=== PATIENT | female | born 1945 | race Caucasian/White ===

== ENCOUNTER 2019-09-22 09:36 | Observation (INO) | payer MEDICARE, SELFPAY ==
[2019-09-22] VITALS (10 sets, daily range): BP systolic 147–218; BP diastolic 79–130; PULSE 91–111; RESP 16–34; TEMP 36.2–36.6; O2SAT 92–95; BMI 23.8
--- NOTE | ~2019-09-22 | XR_ITS ---
EXAMINATION: XR chest 2V DATE: 09/22/2019 10:13 INDICATION: Shortness of breath. TECHNIQUE: Frontal and lateral views of the chest were obtained. COMPARISON: Chest 2 views 08/01/2017, CT abdomen and pelvis 03/13/2011 FINDINGS: There is mild atelectasis in left lower lung zone. No pleural effusion or pneumothorax. Car diomegaly is noted. IMPRESSION: 1. Mild atelectasis in left lower lung zone. 2. Cardiomegaly. Reviewed, dictated and finalized at location A.
--- NOTE | ~2019-09-22 | US_ITS ---
EXAMINATION: US venous doppler [facility] DATE: 09/23/2019 10:47 INDICATION: Lower limb edema. TECHNIQUE: Grayscale ultrasound images without and with compression and Doppler ultrasound images of the bilateral lower extremity veins were obtained. COMPARISON: None. FINDINGS: The visualized portions of right common femoral vein, profunda (deep) femoral vein, femoral vein, pop liteal vein, peroneal veins, posterior tibial veins, and greater saphenous vein outflow are patent. The visualized portions of left common femoral vein, profunda femoral vein, femoral vein, popliteal v ein, and greater saphenous vein outflow are patent. There is thrombus in the left posterior tibial an d peroneal veins. IMPRESSION: 1. Deep vein thrombosis involving the left posterior tibial and peroneal veins. I called this result to Dr. Mckeon on 09/23/19 at 11:15 AM. Reviewed, dictated and finalized at location A. IMPRESSION: 1. Deep vein thrombosis involving the left posterior tibial and peroneal veins . I called this result to Dr. Mckeon on 09/23/19 at 11:15 AM.
--- NOTE | ~2019-09-22 | CT_ITS ---
EXAMINATION: CTA chest PE protocol DATE: 09/22/2019 11:53 INDICATION: Bilateral lower limb swelling and redness, history of bladder cancer TECHNIQUE: Computed tomography angiography (CTA) of the chest was performed with 100 mL Omnipaque-350 intravenous contrast timed to evaluate the pulmonary arteries. Coronal maximum intensity projection 3D-reconstructions were created by the technologist. The dose-length product (DLP) was 219.56 mGy-cm. Automated exposure control and iterative reconstruction technique were employed. COMPARISON: None. FINDINGS: The pulmonary arteries are well-opacified. Respiratory motion artifact diminishes sensitivi ty for pulmonary embolism however none is seen. The lungs are free of acute opacities. There is no pl eural effusion or pneumothorax. Cardiomegaly is noted. There is pectus excavatum. Mild emphysema is n oted. There is moderate thoracic spondylosis. IMPRESSION: 1. No pulmonary embolism or acute cardiopulmonary abnormality, sensitivity slightly limited by motion artifact. Reviewed, dictated and finalized at location B. IMPRESSION: 1. No pulmonary embolism or acute cardiopulmonary abnormality, sensitivity slig htly limited by motion artifact.
--- NOTE | 2019-09-22 09:58 | ECG_ITS ---
Measurements Intervals [place] Rate: 103 P: 52 W[place]: 140 QRS: 38 QRSD: 150 T: 36 QT: 390 QTc: 511 Interpretive Statements SINUS TACHYCARDIA RIGHT BUNDLE BRANCH BLOCK BASELINE ARTIFACT- I, II, AVR, AVL, AVF, V6 ABNORMAL ECG Electronically Signed On 09-22-2019 10:42:17 CDT by Nic Harris D.O.
--- NOTE | 2019-09-22 10:09 | ED.RECABL ---
HPI - Recheck/Abnormal Lab/Rx General Chief Complaint: Recheck/Abnormal Lab/Rx Stated Complaint: redness/swelling in legs and high bp Time Seen by Provider: 09/22/19 10:08 Source: patient Mode of arrival: ambulatory Limitations: no limitations History of Present Illness HPI narrative: Pt presents for evaluation of bilateral leg swelling and redness, as well as shortness of breath. Patient reportedly has had some leg swelling and redness over the past month. Patient also shortness of breath, denies cough or fever. She reports that she has not seen a primary care physician in over 4 years due to insurance issues. She has never been diagnosed with any medical conditions aside from bladder cancer which she was last treated for 6 years ago. Patient denies any chest pain. No pleuritic pain. No recent falls or injuries. Shortness of breath worsens with exertion. No recent travel or contacts outside of the house. Related Data Home Medications Medication Instructions Recorded Confirmed No Home Medications 09/22/19 09/22/19 Allergies Allergy/AdvReac Type Severity Reaction Status Date / Time No Known Allergies Allergy Unknown Verified 08/01/17 08:53 Review of Systems Review of Systems: Narrative: CONSTITUTIONAL: Denies fever, chills, or sweats. ENT: Denies rhinorrhea, congestion, sore throat, or otalgia. CARDIOVASCULAR: Denies chest pain, palpitations, or edema. RESPIRATORY: Denies productive cough, reports shortness of breath GASTROINTESTINAL: Denies abdominal pain, nausea, vomiting, or diarrhea. GENITOURINARY: Denies dysuria or hematuria. SKIN: Denies rash or itching. MUSCULOSKELETAL: Denies back pain, joint pain, or myalgia. NEUROLOGIC: Denies headache, numbness, or weakness. FORMERLY [facility], 1928–1983 Past Medical History Medical History (Updated 09/22/19 @ 12:19 by Elyse Vincent MD) Bladder cancer Surgical History Surgical History (Updated 09/22/19 @ 10:42 by Elyse Vincent MD) No pertinent past surgical history Social History Social History (Updated 09/22/19 @ 10:42 by Elyse Vincent MD) Smoking status: Current every day smoker Tobacco type: cigarettes Alcohol intake: never Substance use: never Living arrangements: alone Gender identity (if verbalized by the patient): Female Exam Narrative: Exam Narrative: GENERAL: Awake, alert, conversant HEAD: Normocephalic, atraumatic. EYES: PERRLA and EOMI. ENT: Nares clear, no rhinorrhea or epistaxis. Mucous membranes moist. NECK: Supple. CHEST: Tachypnea, mild use of accessory muscles to breathe, no wheezing, borderline hypoxemia HEART: Tachycardic, sinus rhythm ABDOMEN:Non distended, non tender EXTREMITIES: Normal range of motion. No pitting edema. No calf tenderness. SKIN: Warm, dry, mild erythema, seems to be more consistent the patient's complexion rather than acute infection NEURO:No focal deficits. Alert and oriented x3 Course Course Emergency Course: Patient presented to the emergency department for evaluation of shortness of breath, reported leg swelling. At the time of initial assessment, patient is mildly tachypneic, hypertensive. She denies any chest pain. She reports worsening shortness of breath with exertion. She is not in any severe respiratory distress. No wheezing. Laboratory results notable for elevation in BNP. Mild elevation in d-dimer. Patient has been very poorly compliant with health care, not seen a primary care physician in many years. CT obtained and no evidence of pneumonia. Patient continued to be very hypertensive with systolics above 200s, thus went ahead and placed nitroglycerin paste on the patient. I was concerned she may have hypertensive crisis causing acute CHF given elevated BP, BNP. The fact that she has no evidence of fluid overload is a bit puzzling at this point. No pneumonia. No PE. I do not feel the patient is anxious. Regardless, pt required hydralazine and nitro paste for BP control. Patient will be admitted
--- NOTE | 2019-09-22 10:10 | PC.NURSE ---
Patient to xray at this time
[2019-09-22 10:15] LABS: Basophils Percent Auto 0.6 % (0.2-1.2); Eosinophils Absolute Auto 0.2 K/mm3 (0-0.3); Eosinophils Percent Auto 2.8 % (0-4.4); Hematocrit 56.1 % (37.0-47.0); Hemoglobin 18.1 g/dL (12.0-15.0); Immature Granulocyte Absolute 0.02 K/mm3 (0.00-0.031); Immature Granulocyte Percent A 0.3 % (0-0.5); Lymphocytes Absolute Auto 1.41 K/mm3 (0.9-3.2); Lymphocytes Percent Auto 22.1 % (18.3-44.2); Mean Corpuscular HGB Conc 32.3 g/dl (32-36); Mean Corpuscular Hemoglobin 30.1 pg (26-34); Mean Corpuscular Volume 93.2 fl (80-100); Mean Platelet Volume 9.9 fl (7.4-10.4); Monocytes Absolute Auto 0.4 K/mm3 (0.1-0.6); Monocytes Percent Auto 6.7 % (2.6-8.5); Neutrophils Absolute Auto 4.3 K/mm3 (1.3-6.7); Neutrophils Percent Auto 67.5 % (45.5-73.1); Platelet Count Result 162 k/mm3 (150-375); Red Blood Count 6.02 M/mm3 (4.2-5.4); Red Cell Distribution Width 13.2 % (11.5-14.5); White Blood Count 6.4 K/mm3 (4.5-10.0)
[2019-09-22 10:28] LABS: Blood Urea Nitrogen 12 mg/dL (7-17); Calcium 9.7 mg/dL (8.4-10.2); Carbon Dioxide 30 mmol/L (22-30); Chloride 105 mmol/L (98-107); Estimated CRCL calculation 51 ml/min; Estimated Glomerular Filt Rate > 60; Glucose 114 mg/dL (65-105); INR 0.9; Partial Thromboplastin Time 31.2 SECONDS (22.3-36.8); Potassium 4.3 mmol/L (3.4-5.0); Prothrombin Time 12.2 Seconds (11.1-14.7); Sodium 142 mmol/L (137-145)
[2019-09-22 10:40] LABS: NT Pro B Type Natriuretic Pept 1480 PG/ML (5-100); Troponin I 0.015 ng/mL (0.000-0.034)
[2019-09-22 11:02] LABS: D Dimer 0.52 ug/mL (<0.48)
[2019-09-22] MEDS: NITROGLYCERIN OINTMENT 1 INCH DOSE TRANSDERM (11:05)
[2019-09-22] MEDS: FUROSEMIDE INJ 40 MG/4 ML VIAL 20 MG IV PUSH (11:06)
--- NOTE | 2019-09-22 11:42 | PC.NURSE ---
Patient in CT at this time
[2019-09-22] MEDS: hydrALAZINE HCL 20 MG/ML VIAL 10 MG IV PUSH (13:14)
--- NOTE | 2019-09-22 13:50 | ADMGEN ---
This patient, Felipa Adams, was admitted to Medical Room 340-01. Patient/family oriented to hospital policies and general routines including ID bracelet, bed and alarms, visiting hours, pain management, procedures, bathroom and other care routines, personal items, smoking policy, room service/diet, and visiting hours. Valuables list has been completed. Information on how to activate the Rapid Response Team has been discussed. Patient/Family are encouraged to report perceived risks to care and to ask questions if they do not understand what they are told or what they should do.
[2019-09-22] MEDS: ACETAMINOPHEN 325 MG TABLET 650 MG PO (15:25)
[2019-09-22 16:32] LABS: Troponin I 0.019 ng/mL (0.000-0.034)
--- NOTE | 2019-09-22 22:05 | PM.IMHP ---
H&P: HPI History of Present Illness Chief complaint: hypertensive emergency,dyspnea Narrative: Felipa Adams is a 73 year old female The patient stated that she has not had any history of congestive heart failure. The patient is on Medicare and cannot find a primary care doctor at this time that will take her insurance. Patient stated that she started to have some leg swelling for over [place] months now and the shortness of breath was way over a month. Patient denies being short of breath with exertion and she denies orthopnea. Her major concern was that of the edema to her lower extremities. the patient stated that she had high blood pressure who many years ago and was treated when she had a primary care doctor but has not been taking any blood pressure medicine. She still continues to smoke. The patient had a CTA which showed no pulmonary embolism or acute cardiopulmonary abnormalities. Chest x-ray was read as cardiomegaly. The patient was given IV Lasix in the emergency room hydralazine and Nitrol ointment. Date of service is 09/22/2019 Review of Systems Review of Systems: All systems reviewed & are unremarkable except as noted in HPI and below Constitutional: Constitutional: Reports as per HPI and Reports no additional constitutional complaints Eyes: Eyes: Reports as per HPI and Reports no additional eye complaints ENT: Reports system reviewed and no additional complaints, except as documented and Reports Normal hearing present Cardiovascular: Cardiovascular: Reports no additional cardiovascular complaints Respiratory: Respiratory: Reports no additional respiratory complaints and Reports no additional respiratory complaints Gastrointestinal: Gastrointestinal: Reports as per HPI and Reports no additional gastrointestinal complaints Musculoskeletal: Musculoskeletal: Reports no additional musculoskeletal complaints Integumentary/Breasts: Skin/Breast: Reports system reviewed and no additional complaints, except as docu and Reports as per HPI Neurologic: Reports system reviewed and no additional complaints, except as documented, Reports as per HPI and Reports Normal hearing present Psychiatric: Psychiatric: Reports no additional psychiatric complaints and Reports as per HPI Endocrine: Endocrine: Reports no additional endocrine complaints Hematologic/Lymphatic: Hematologic/Lymphatic: Reports no additional hematologic/lymphatic complaints Allergic/Immunologic: Allergic/Immunologic: Reports no additional allergic/immunologic complaints [facility] Past Medical History Medical History (Updated 09/22/19 @ 22:23 by Lillie White NP) Bladder cancer remove per cystoscopy without any chemo or radiation. HTN (hypertension) with goal to be determined Surgical History Surgical History (Updated 09/22/19 @ 22:13 by Lillie White NP) History of tonsillectomy and adenoidectomy No pertinent past surgical history Family History Family History (Updated 09/22/19 @ 22:15 by Lillie White NP) Mother Sepsis Father Lung cancer Sibling Leukemia Other Unknown family medical history Social History Social History (Updated 09/22/19 @ 22:16 by Lillie White NP) Social History: the patient is . She is a full code. 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 She does not have a primary care doctor and will need a list. She has 2 children. Patient smokes a pack a cigarettes in about 3 days. She did have a #waywire for many years and is retired. She lives home alone. Smoking packs per day: 1 Smoking cigarettes per day: 20.0 Years smoked: 45 Smoking pack-years: 45.00 Smoking status: Current every day smoker Tobacco type: cigarettes Alcohol intake: never Substance use: never Living arrangements: alone Occupation/Education: retired Gender identity (if verbalized by the patient): Female Spiritual care concerns: No Agree to blood products: Yes Meds Home Medications and A
[2019-09-22] MEDS: MELATONIN 3 MG TABLET PO (22:24)
[2019-09-23] VITALS (9 sets, daily range): BP systolic 137–153; BP diastolic 77–93; PULSE 81–106; RESP 16–18; TEMP 36.2–36.7; O2SAT 92
--- NOTE | 2019-09-23 | ECHO_ITS ---
Patient Info Name: Felipa Adams Age: 73 years : 1945 Gender: Female Ht: 66 in Wt: 147 lbs BSA: 1.77 m2 HR: 82 bpm BP: 145 / 77 mmHg Heart Rhythm: Sinus Rhythm Technical Quality: Good Exam Date: 09/23/2019 7:09 AM Exam Location: [facility] Pulmonary Exam Room: 340 Patient Status: Inpatient Admit Date: 09/22/2019 Staff Ordering Physician: Lillie White NP Patch Machine Operator: Chantal Gonzalez RDCS Attending Provider: Starr Benson MD Referring Physician: Cindy KWAN; Exam Type: CA echo doppler color flow Study Info Indications - edema sob Complete two-dimensional, color flow and Doppler transthoracic echocardiogram is performed. Summary 1. Normal left ventricular size with moderate concentric hypertrophy. Moderately severe global left ventricular dysfunction is present with no focal wall motion abnormalities. Visual estimate of ejection fraction is 30-35%. Diastolic dysfunction, grade 2, is present. 2. Left atrial chamber dimension is mildly enlarged. 3. No significant valvular heart disease. 4. Normal estimated pulmonary pressure. 5. Normal sinus rhythm. Left Ventricle Left ventricular chamber dimension is normal. Left ventricular systolic function is severely reduced, estimated at 30-35%. There is moderately increased left ventricular wall thickness. Left ventricular septal wall motion is normal. The left ventricular diastolic function is grade II diastolic dysfunction. Right Ventricle Right ventricular chamber dimension is normal. Right ventricular systolic function is normal. Left Atria Left atrial chamber dimension is mildly enlarged. Right Atria Right atrial chamber dimension is normal. Aortic Valve The aortic valve is trileaflet. There is no aortic valve sclerosis. There is no aortic valve stenosis. There is no aortic valve regurgitation. Pulmonic Valve The pulmonic valve is normal. There is no pulmonic valve stenosis. There is no pulmonic regurgitation. Mitral Valve The mitral valve has thickened leaflets. There is no mitral valve stenosis. There is trace mitral valve regurgitation. Tricuspid Valve The tricuspid valve leaflets are normal. There is no significant tricuspid valve stenosis. There is trace tricuspid valve regurgitation. No pulmonary hypertension, estimated pulmonary arterial systolic pressure is 29 mmHg. Pericardium/Pleural The pericardium appears normal. There is no pericardial effusion. Inferior Vena Cava Normal inferior vena cava with >50% collapse upon inspiration consistent with Empty right atrial pressure, 10 mmHg. Aorta The aortic root size at the sinus of Valsalva is normal. The prox ascending aorta size is normal. Left Ventricular Outflow Tract Name Value Normal LVOT 2D LVOT Diameter 2.0 cm LVOT Doppler LVOT Peak Gradient 4 mmHg LVOT Mean Gradient 2 mmHg LVOT VTI 20 cm LVOT VTI/AV VTI Ratio 0.5 LVOT Stroke Volume 62 ml LVOT CO
[2019-09-23] MEDS: ACETAMINOPHEN 325 MG TABLET 650 MG PO (00:23)
[2019-09-23] MEDS: carvediloL 3.125 MG TABLET PO ×2 (01:12→08:03)
[2019-09-23 06:42] LABS: Basophils Percent Auto 0.4 % (0.2-1.2); Eosinophils Absolute Auto 0.2 K/mm3 (0-0.3); Eosinophils Percent Auto 2.3 % (0-4.4); Hematocrit 50.2 % (37.0-47.0); Hemoglobin 16.5 g/dL (12.0-15.0); Immature Granulocyte Absolute 0.03 K/mm3 (0.00-0.031); Immature Granulocyte Percent A 0.3 % (0-0.5); Lymphocytes Absolute Auto 1.18 K/mm3 (0.9-3.2); Lymphocytes Percent Auto 12.2 % (18.3-44.2); Mean Corpuscular HGB Conc 32.9 g/dl (32-36); Mean Corpuscular Hemoglobin 29.6 pg (26-34); Mean Corpuscular Volume 90.1 fl (80-100); Mean Platelet Volume 9.7 fl (7.4-10.4); Monocytes Absolute Auto 0.9 K/mm3 (0.1-0.6); Monocytes Percent Auto 8.8 % (2.6-8.5); Neutrophils Absolute Auto 7.4 K/mm3 (1.3-6.7); Platelet Count Result 167 k/mm3 (150-375); Red Blood Count 5.57 M/mm3 (4.2-5.4); Red Cell Distribution Width 12.8 % (11.5-14.5); White Blood Count 9.7 K/mm3 (4.5-10.0)
[2019-09-23 06:57] LABS: Alanine Aminotransferase 15 U/L (4-35); Albumin Level 4.1 g/dL (3.5-5.1); Alkaline Phosphatase 75 U/L (38-126); Aspartate Amino Transferase 21 U/L (14-36); Bilirubin,Total 1.1 mg/dL (0.2-1.3); Blood Urea Nitrogen 15 mg/dL (7-17); Calcium 9.1 mg/dL (8.4-10.2); Carbon Dioxide 31 mmol/L (22-30); Chloride 101 mmol/L (98-107); Estimated CRCL calculation 51 ml/min; Estimated Glomerular Filt Rate > 60; Glucose 117 mg/dL (65-105); Potassium 3.7 mmol/L (3.4-5.0); Sodium 138 mmol/L (137-145)
[2019-09-23] MEDS: FUROSEMIDE INJ 40 MG/4 ML VIAL 20 MG IV PUSH (08:03)
[2019-09-23] MEDS: ENOXAPARIN 80 MG/0.8 ML SYRINGE 65 MG SUB-Q (12:12)
--- NOTE | 2019-09-23 13:33 | WPDCN ---
Assessment and Plan Assessment and plan (1) Cardiomyopathy: Code(s): I42.9 - Cardiomyopathy, unspecified Status: Acute Assessment and Plan: Patient presents with mild CHF, new cardiomyopathy EF 30-35% with LVH (probably a hypertensive cardiomyopathy), and chronic hypertension which has not been treated. Doing much better now, up and ambulating in the halls, off O2.. She is on minimal therapy at this moment with reasonable BP for discharge.. Seems okay for discharge. Will add lisinopril 10 mg daily, continue carvedilol 3.125 mg BID and Lasix 20 mg qd. Reviewed low-salt diet REviewed my hope that her heart would recover if she has good BP control. Reviewed when to call for problems. Recommend office follow-up as well as a primary care physician. (2) Hypertensive crisis: Code(s): I16.9 - Hypertensive crisis, unspecified Status: Acute Assessment and Plan: Severely elevated BP on admission. (3) Hypertensive heart disease with systolic congestive heart failure: Code(s): I11.0 - Hypertensive heart disease with heart failure; I50.20 - Unspecified systolic (congestive) heart failure Status: Acute Assessment and Plan: LVH, CHF. (4) COPD (chronic obstructive pulmonary disease): Code(s): J44.9 - Chronic obstructive pulmonary disease, unspecified Status: Acute Assessment and Plan: CT showed COPD and H&H high suggesting COPD. Tobacco use. Encouraged cessation. (5) DVT (deep venous thrombosis): Code(s): I82.409 - Acute embolism and thrombosis of unspecified deep veins of unspecified lower extremity Status: Acute Assessment and Plan: Anticoagulation per hospitalist. HPI Data of Consult Date/Time: 09/23/19 13:33 Requesting Physician: Starr Mckeon MD Primary Care Provider: UNKNOWN,DOCTOR Consult Narrative Narrative: DATE OF SERVICE: 09/23/2019 Felipa Adams is a 73 year old female whom I was asked to see at the request of Dr. Mckeon for my advice and opinion regarding her cardiomyopathy in consultation. The patient has had some swelling as well as REED for the last few months. However she was able to do house work without too much difficulty. Her daughter was concerned about her edema and brought her to the emergency room yesterday. Her blood pressure was 218/130mmHg at 1 point. She has been given IV diuretic, nitropaste, in started on carvedilol. Lower extremity Doppler showed a infrapopliteal DVT. The patient reports no chest pain or pressure, PND orthopnea, palpitations, history of stroke. She does have a history of hypertension treated in the past, but with her current unsure and she could not find a nearby primary care doctor and has not had her blood pressure treated. She denies any hyperlipidemia or diabetes. She does smoke and wonders if she might have some COPD. Review of Systems Constitutional: Constitutional: Denies difficulty sleeping Eyes: Eyes: Denies blurry vision ENT: Denies epistaxis Cardiovascular: Cardiovascular: Denies chest pain, Reports pedal edema, Reports leg edema, Denies lightheadedness and Denies palpitations Comments: no claudication Respiratory: Respiratory: Denies chest congestion, Denies cough, Reports dyspnea and Reports dyspnea on exertion Gastrointestinal: Gastrointestinal: Denies abdominal pain and Denies hematemesis Genitourinary: Genitourinary: Denies hematuria Musculoskeletal: Musculoskeletal: Denies back pain Integumentary/Breasts: Skin/Breast: Denies rash Psychiatric: Psychiatric: Denies anxiety and Denies depression [facility] Past Medical History Medical History (Updated 09/23/19 @ 14:20 by Samantha Mckeon MD) Bladder cancer removed per cystoscopy without any chemo or radiation, Dr. Valencia
[2019-09-23] MEDS: lisinopriL 10 MG TABLET PO (14:53)
--- NOTE | 2019-09-23 15:17 | PM.IMPN ---
Progress Note: A&P Assessment and Plan (1) Hypertensive crisis: Code(s): I16.9 - Hypertensive crisis, unspecified Status: Acute Assessment and Plan: Significant blood pressure elevation on presentation with systolic blood pressure in the 200s. Nitroglycerin paste placed in the emergency room then removed. Patient started on Coreg yesterday. Cardiology consulted due to echocardiogram results as noted below. Lisinopril started. Also on diuretic. Blood pressure reviewed on 09/23/2019 and now much improved in acceptable range. Will discharge home today. (2) Cardiomyopathy: Qualifiers: Cardiomyopathy type: unspecified Qualified Code(s): I42.9 - Cardiomyopathy, unspecified Code(s): I42.9 - Cardiomyopathy, unspecified Status: Acute Assessment and Plan: Echocardiogram with EF 30-35% and diastolic dysfunction grade 2. Cardiology consulted and appreciate input. Continue Coreg. Placed on IV Lasix on admission but will transition to oral Lasix. Lisinopril added. Will follow-up with cardiology as an outpatient. Telemetry reviewed on 09/23/2019 with sinus rhythm. (3) Hypertensive heart disease with systolic congestive heart failure: Qualifiers: Heart failure chronicity: acute Qualified Code(s): I11.0 - Hypertensive heart disease with heart failure; I50.21 - Acute systolic (congestive) heart failure Code(s): I11.0 - Hypertensive heart disease with heart failure; I50.20 - Unspecified systolic (congestive) heart failure Status: Acute Assessment and Plan: Shortness of breath on presentation due to cardiomyopathy. CTA chest was negative for pulmonary embolism. Echocardiogram results as noted above. Will continue Coreg, lisinopril and Lasix at home. (4) DVT (deep venous thrombosis): Qualifiers: DVT location: lower extremity Affected thrombotic vein of extremity: tibial Chronicity: acute Laterality: left Qualified Code(s): I82.442 - Acute embolism and thrombosis of left tibial vein Code(s): I82.409 - Acute embolism and thrombosis of unspecified deep veins of unspecified lower extremity Status: Acute Assessment and Plan: Venous Dopplers of the lower extremities ordered due to edema in lower extremities. Left lower extremity with DVT of the left posterior tibial and peroneal veins. Patient was given 1 dose Lovenox subcu while here. Will transition to oral Eliquis on discharge. Subjective Date/time seen: 09/23/19 15:17 Interval history: Date of Service: 09/23/2019. Admitted with hypertensive, dyspnea and peripheral edema. Found to have left lower extremity DVT and cardiomyopathy. Patient is feeling much better now. Has been for several walks without shortness of breath. No cough. No chest pain. No abdominal pain. Does still have some swelling in left lower extremity but no pain. Review of Systems Review of Systems: Narrative: Feeling better. Wants to go home. Constitutional: Constitutional: Denies chills and Denies fever(s) ENT: Denies nasal congestion and Denies nasal discharge Cardiovascular: Cardiovascular: Denies chest pain and Reports leg edema Respiratory: Respiratory: Denies cough, Denies dyspnea and Denies dyspnea on exertion Gastrointestinal: Gastrointestinal: Denies abdominal pain, Denies nausea and Denies vomiting Genitourinary: Genitourinary: Reports no additional female genitourinary complaints Musculoskeletal: Musculoskeletal: Reports no additional musculoskeletal complaints Integumentary/Breasts: Skin/Breast: Denies rash Neurologic: Denies headache(s) Psychiatric: Psychiatric: Denies anxiety and Denies confusion Exam Narrative: Exam Narrative: Awake and alert. Const: General: no acute distress HENMT: Mouth: Yes moist mucous membranes Neck: Neck: supple Lymphatic: lymphadenopathy not noted Resp: Auscultation: no rales, no wheezes and diminished lung sounds Cardio: Rate: re
--- NOTE | 2019-09-23 18:22 | PM.DS ---
DS: Diagnosis Admitting Diagnosis Admitting Diagnosis: Hypertensive crisis, unspecified Discharge Diagnosis (1) Hypertensive crisis: Code(s): I16.9 - Hypertensive crisis, unspecified Status: Acute (2) Cardiomyopathy: Qualifiers: Cardiomyopathy type: unspecified Qualified Code(s): I42.9 - Cardiomyopathy, unspecified Code(s): I42.9 - Cardiomyopathy, unspecified Status: Acute (3) Hypertensive heart disease with systolic congestive heart failure: Qualifiers: Heart failure chronicity: acute Qualified Code(s): I11.0 - Hypertensive heart disease with heart failure; I50.21 - Acute systolic (congestive) heart failure Code(s): I11.0 - Hypertensive heart disease with heart failure; I50.20 - Unspecified systolic (congestive) heart failure Status: Acute DS: Summary Hospital Course Reason for hospitalization: Shortness of breath. Hospital Course: Date of Service of Discharge: September 23, 2019. History of Present Illness: Patient is pleasant 73-year-old woman currently without a primary care physician presented to the emergency room with shortness of breath for the past month. She has also had leg swelling for several months. No orthopnea. No fever chills. No cough. She does have a history of taking antihypertensives but has not taken recently due to lack of primary physician. With continuing symptoms, patient presented to emergency room. Systolic blood pressure was noted to be significantly elevated greater than 200. She was given nitroglycerin paste and hydralazine as result. Evaluation was consistent with congestive heart failure with patient given IV Lasix. CT of the chest was done showing no pulmonary embolism. With her findings, she was placed in observation for further evaluation and treatment. Course in Hospital: Patient was admitted to the medical floor with telemetry. As noted, she was given IV Lasix which was continued. Patient had good diuresis with the IV Lasix. She was started on oral Coreg with concern for possible congestive heart failure. These measures did help decrease her blood pressure although remained mildly elevated. Patient remained in sinus rhythm on telemetry. She did remain on room air throughout her stay. An echocardiogram was done revealing EF of 30-35% and diastolic dysfunction grade 2. Cardiology was consulted and patient was seen by Dr. Mckeno. Lisinopril was added to Coreg with recommendation to convert to oral Lasix. Patient was felt stable for discharge given her status. Venous Dopplers were done of the lower extremities with DVT found in the left posterior tibial and peroneal veins. Patient was given a dose of therapeutic Lovenox in the hospital with plan to transition to oral Eliquis as an outpatient. Patient was aware she would need at least 3-6 months treatment and will need to establish with primary care physician for further evaluation and treatment. With the patient stable, she was able to discharge home on the afternoon of September 23, 2019. Status at Discharge Cognitive/behavioral status at discharge: Stable. Functional status at discharge: independent ambulation Overall status at discharge: patient is back to baseline Time Spent with Patient Time attestation: Total time spent providing and/or coordinating discharge services: 40 minutes. Time spent: Greater than 30 minutes Exam Narrative: Exam Narrative: Vital Signs Temp Pulse Resp BP Pulse Ox 97.3 F L 111 H 20 200/114 H 95 09/22/19 09:40 09/22/19 09:40 09/22/19 09:40 09/22/19 09:40 09/22/19 09:40 Temp Pulse Resp BP Pulse Ox 98.1 F 98 18 137/93 H 92 09/23/19 14:00 09/23/19 14:00 09/23/19 14:00
== END 2019-09-23 16:25 | disposition home or self-care (01) ==
LOC: ANHED 13:32 → ANH3MED 13:34
PROVIDERS: Nurse Practitioner; Admitting Provider Hospitalist; Emergency Provider Emergency Medicine; Visit Provider Hospitalist
DX: I16.9 Hypertensive crisis, unspecified (principal); I11.0 Hypertensive heart disease with heart failure; I50.21 Acute systolic (congestive) heart failure; I42.9 Cardiomyopathy, unspecified; I82.442 Acute embolism and thrombosis of left tibial vein; I82.452 Acute embolism and thrombosis of left peroneal vein; F17.210 Nicotine dependence, cigarettes, uncomplicated; Z85.51 Personal history of malignant neoplasm of bladder
CPT/HCPCS: 36415; 71046; 71275; 80048; 80053; 83735; 83880; 84443; 84484; 85025; 85380; 85610; 85730; 93005; 93306; 93970; 96372; 96374; 96375; 96376; 99285; A9270; G0378; J0360; J1650; J1940; Q9967

== ENCOUNTER 2019-10-02 10:31 | Outpatient (CLI) | payer MEDICARE, SELFPAY ==
[2019-10-02 11:13] LABS: Blood Urea Nitrogen 15 mg/dL (7-17); Calcium 9.6 mg/dL (8.4-10.2); Carbon Dioxide 31 mmol/L (22-30); Chloride 105 mmol/L (98-107); Estimated Glomerular Filt Rate > 60; Glucose 112 mg/dL (65-105); Potassium 4.5 mmol/L (3.4-5.0); Sodium 139 mmol/L (137-145)
== END 2019-10-02 10:32 | disposition home or self-care (01) ==
PROVIDERS: Visit Provider Hospitalist
DX: I11.0 Hypertensive heart disease with heart failure (principal); I50.20 Unspecified systolic (congestive) heart failure
CPT/HCPCS: 36415; 80048

== ENCOUNTER 2020-07-17 18:33 | Emergency (ER) | payer MEDICARE, SELFPAY ==
--- NOTE | ~2020-07-17 | XR_ITS ---
XR elbow LT min 3V 07/17/2020 20:24 INDICATION: Left elbow pain PROCEDURE: 5 views left elbow COMPARISON: No prior studies for comparison FINDINGS: Fracture, dislocation or subluxation is not identified. No significant joint effusion. Oste openia. There are small loose bodies adjacent to the joint space. The soft tissues appear within norm al limits. No foreign bodies are identified. IMPRESSION: 1: NO ACUTE BONE OR JOINT ABNORMALITY IDENTIFIED. Reviewed, dictated and finalized at location A. RUMENT TECHNICIAN APPRENTICE
--- NOTE | ~2020-07-17 | XR_ITS ---
XR wrist LT min 3V 07/17/2020 19:20 Indication: Left wrist deformity after fall Procedure: 4 views left wrist Comparison: No prior studies for comparison. Findings: There is a transverse distal metaphyseal fracture of the radius with approximately one thir d bone width dorsal displacement. Mild dorsal angulation. No intra-articular extension. There is a no ndisplaced distal ulnar fracture as well. Moderate diffuse soft tissue swelling. Osteopenia. Impression: 1: Mildly extra-articular displaced transverse distal radial metaphyseal fracture with approximately one third bone width dorsal displacement and mild dorsal angulation. 2: Nondisplaced distal ulnar fracture. Reviewed, dictated and finalized at location A. EMENT SECRETARY Impression: 1: Mildly extra-articular displaced transverse distal radial metaphyseal fractu re with approximately one third bone width dorsal displacement and mild dorsal angulation. 2: Nondisplaced distal ulnar fracture.
--- NOTE | ~2020-07-17 | XR_ITS ---
XR wrist LT 2V 07/17/2020 21:21 Indication: Post reduction left wrist fracture Procedure: 2 views left wrist performed in fiberglass cast Comparison: 07/17/2020 Findings: No significant change to alignment of distal radial and ulnar fractures at the metaphysis. There is mild dorsal displacement and angulation of the radial fracture. No other gross fracture or m alalignment. Osteopenia. Impression: 1: Stable alignment of distal radial and ulnar fractures post reduction allowing for differences of marco antonio chappell. Reviewed, dictated and finalized at location A. OR PRINCIPAL ARCHITECT Impression: 1: Stable alignment of distal radial and ulnar fractures post reduction allowin g for differences of technique.
[2020-07-17 18:53] VITALS: BP 155/61; PULSE 63; RESP 16; TEMP 36.6; O2SAT 98
--- NOTE | 2020-07-17 20:09 | ED.UPPEXIN ---
HPI - Extremity Injury (Upper) General Chief Complaint: Extremity Injury, Upper Stated Complaint: L wrist injury Time Seen by Provider: 07/17/20 19:36 Source: patient Mode of arrival: ambulatory Limitations: no limitations History of Present Illness HPI narrative: This is a 74 year old female that presents to the ER for left wrist injury sustained just prior to arrival. Reports she slipped after she had gotten out of the shower. Reports catching herself with her left wrist. Also reports an injury to the left elbow. Denies hitting her head, loss of consciousness, other injuries, weakness, or numbness. Related Data Allergies Allergy/AdvReac Type Severity Reaction Status Date / Time No Known Allergies Allergy Unknown Verified 08/01/17 08:53 Review of Systems Review of Systems: Narrative: CONSTITUTIONAL: Denies fever MUSCULOSKELETAL: Reports joint pain, and myalgia. NEUROLOGIC: Denies numbness, or weakness. All systems reviewed & are unremarkable except as noted in HPI and below PMFSH Past Medical History Medical History (Updated 07/17/20 @ 21:59 by Dorina Magallanes PA-C) Bladder cancer removed per cystoscopy without any chemo or radiation, Dr. Ovalle, approximately 2012. Cardiomyopathy HTN (hypertension) with goal to be determined Surgical History Surgical History (Updated 09/22/19 @ 22:13 by Lillie White NP) History of tonsillectomy and adenoidectomy No pertinent past surgical history Family History Family History (Updated 09/23/19 @ 14:14 by Samantha Mckeon MD) Mother Sepsis Father Lung cancer Black lung disease Sibling Leukemia Other Unknown family medical history Social History Social History (Updated 09/23/19 @ 14:15 by Samantha Mckeon MD) Social History: the patient is since 2018. She is a full code. 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 She does not have a primary care doctor and will need a list. She has 2 daughters, 1 of whom lives with her. Patient smokes a pack a cigarettes in about 3 days. She did have a [employer] for many years and is retired. Smoking packs per day: 1 Smoking cigarettes per day: 20.0 Years smoked: 45 Smoking pack-years: 45.00 Smoking status: Current every day smoker Tobacco type: cigarettes Alcohol intake: never Substance use: never Gender identity (if verbalized by the patient): Female Spiritual care concerns: No Agree to blood products: Yes Exam Narrative: Exam Narrative: GENERAL: Elderly, well-nourished, and in no acute distress. HEAD: Normocephalic, atraumatic. EYES: PERRLA and EOMI. ENT: Nares clear, no rhinorrhea or epistaxis. Mucous membranes moist. Oropharynx without tonsillar hypertrophy exudate or other lesions. Bilateral TMs pearly flores non-bulging NECK: Supple. No adenopathy or masses. No midline spinal tenderness CHEST: Clear to auscultation. No respiratory distress. No wheezes rales or rhonchi HEART: Regular rate and rhythm. No murmur heard. Normal peripheral pulses. EXTREMITIES: Normal range of motion, except decreased range of motion in the left wrist. Edema with obvious deformity to the left wrist. Normal radial pulses. Normal sensation SKIN: Warm, dry, no rash. NEURO: No focal deficits. Alert and oriented x3. Cranial nerves II through XII grossly intact PSYCH: Normal mood and affect Course Vital Signs Vital signs: Vital Signs Temperature 97.8 F 07/17/20 18:53 Pulse Rate 63 07/17/20 18:53 Respiratory Rate 16 07/17/20 18:53 Blood Pressure 155/61 H 07/17/20 18:53 Pulse Oximetry 98 07/17/20 18:53 Temperature 97.8 F 07/17/20 18:53 Pulse Rate 63 07/17/20 18:53 Respiratory Rate 16 07/17/20 18:53 Blood Pressure 155/61 H 07/17/20 18:53 Pulse Oximetry 98 07/17/20 18:53 Procedures Orthopedic Fracture Reduction Fracture #1: Fracture Reduction date: 07/17/20 Side: left Fracture Reduction Location: radius Analgesia: hem
--- NOTE | 2020-07-17 20:10 | PC.NURSE ---
patient brought back to ED room 3 with c/o left wrist pain and deformity after ground level fall tonight after slipping on a wet floor in her bathroom. see initial notes. alert. oriented. sitting in chair in ED room 3. ice on left wrist. patient assisted to sit on stretcher. wants to remain sitting up. aware that xray is pending.
[2020-07-17] MEDS: LIDOCAINE HCL 1% LOCAL INJ 20 ML VIAL INFILTRATE (20:13)
[2020-07-17] MEDS: HYDROcodone/acetaminophen (*CRX) 5-325 MG TABLET 1 TAB PO (20:13)
--- NOTE | 2020-07-17 20:20 | PC.NURSE ---
provider to bedside. patient needs closed reduction and then fu with orthopedic surgery. patient does not want to be sedated in ED. will give PO pain meds, start IV and do nerve block. can give IV meds prior to OCL placement. patient aware and agreeable. sitting on stretcher. norco given. xray here now.
--- NOTE | 2020-07-17 20:40 | PC.NURSE ---
patient spoke with her children. update given. SL inserted. waiting for MD.
[2020-07-17] MEDS: fentaNYL CITRATE INJ (*CRX) 100 MCG/2 ML VIAL 50 MCG IV PUSH (21:10)
--- NOTE | 2020-07-17 21:30 | PC.NURSE ---
provider at bedside. fentanyl IVP given for pain. patient's hand in hand trap. OCL being applied.
== END 2020-07-17 22:10 | disposition home or self-care (01) ==
PROVIDERS: Emergency Provider Emergency Medicine
DX: S52.502A Unspecified fracture of the lower end of left radius, initial encounter for closed fracture (principal); W01.0XXA Fall on same level from slipping, tripping and stumbling without subsequent striking against object, initial encounter; I10 Essential (primary) hypertension
CPT/HCPCS: 29125; 73080; 73100; 73110; 96374; 99284; A9270; J3010

== ENCOUNTER → 2020-07-19 03:09 | Outpatient (CLI) | payer MEDICARE, SELFPAY ==
[2020-07-19 18:10] LABS: SARS-CoV-2 RNA PCR Negative
== END ==
PROVIDERS: Visit Provider Orthopaedic Surgery
DX: Z01.812 Encounter for preprocedural laboratory examination (principal); Z20.822 Contact with and (suspected) exposure to COVID-19
CPT/HCPCS: C9803; U0003; U0005

== ENCOUNTER 2020-07-19 09:14 | Outpatient (CLI) | payer MEDICARE, SELFPAY ==
[2020-07-19 09:59] LABS: Anion Gap 7 mmol/L (8-16); Blood Urea Nitrogen 18 mg/dL (7-17); Calcium 8.8 mg/dL (8.4-10.2); Carbon Dioxide 29 mmol/L (22-30); Chloride 105 mmol/L (98-107); Estimated Glomerular Filt Rate 54; Glucose 110 mg/dL (65-105); Potassium 4.1 mmol/L (3.4-5.0); Sodium 141 mmol/L (137-145)
== END 2020-07-19 09:15 | disposition home or self-care (01) ==
PROVIDERS: Anesthesiology; Visit Provider Orthopaedic Surgery
DX: I10 Essential (primary) hypertension (principal); Z01.818 Encounter for other preprocedural examination
CPT/HCPCS: 36415; 80048; C9803; U0003; U0005

== ENCOUNTER 2020-07-22 01:47 | Day surgery (SDC) | payer MEDICARE, SELFPAY ==
[2020-07-18 11:20] VITALS: BMI 26.8
--- NOTE | ~2020-07-22 | XR_ITS ---
EXAMINATION: XR surgery orthopedic DATE: 07/22/2020 12:29 INDICATION: ORIF left wrist fracture TECHNIQUE: 2 fluoroscopic images of the left wrist were obtained during procedure performed by Dr. Naren duran. Radiologist was not present for the imaging or procedure. The amount of fluoroscopy time used dur ing this procedure was 0.5 minutes. COMPARISON: None. FINDINGS: Volar T plate and screw fixation of the previous noted extra articular fracture of the distal metaphy sis of the left radius which is now in near-anatomic alignment. An additional unfixed extra-articular fracture of the distal left ulnar metaphysis also remains in near-anatomic alignment. No other fract ures identified. Normal alignment with relatively preserved joint spaces in the carpus. IMPRESSION: 1. Extra-articular distal left radial and ulnar fractures which are in near-anatomic alignment post v olar T plate and screw fixation of the radial fracture. Reviewed, dictated and finalized at location A. PREVENTION RESEARCH ENGINEER IMPRESSION: 1. Extra-articular distal left radial and ulnar fractures which are in near-wally tomic alignment post volar T plate and screw fixation of the radial fracture.
[2020-07-22] MEDS: ACETAMINOPHEN 500 MG TABLET 1000 MG PO (08:32)
[2020-07-22] MEDS: LACTATED RINGERS 1,000 ML 30 ML IV CONT (08:55)
[2020-07-22] MEDS: KETOROLAC 15 MG/ML VIAL (*BKC) IV PUSH (08:57)
--- NOTE | 2020-07-22 09:54 | P.PNAN_ITS ---
Anes - Eval Pre Procedure Procedure: Operation Date: 07/22/20 10:30 Proposed Procedures p Open Reduction Internal Fixation Left Distal Radius Fracture - Ari Jacobs MD Date/Time: 07/22/20 09:54 Pre Op Diagnosis: Left Distal Radius Fx Patient Data Age: 74 Gender: F Height: 1.65 m Weight: 73.2 kg Allergies Allergy/AdvReac Type Severity Reaction Status Date / Time No Known Allergies Allergy Unknown Verified 07/22/20 09:19 Home Medications Medication Instructions Recorded Confirmed Type furosemide 20 mg PO DAILY 30 Days #30 tablet 09/23/19 07/22/20 Rx hydrocodone-acetaminophen 1 tablet PO Q8H PRN #14 tablet 07/17/20 07/22/20 Rx atorvastatin 40 mg PO QAM 07/18/20 07/22/20 History carvedilol 6.25 mg PO BID 07/18/20 07/22/20 History ergocalciferol (vitamin D2) 50,000 unit PO WEEKLY 07/18/20 07/22/20 History lisinopril 20 mg PO DAILY 07/18/20 07/22/20 History Patient hx anesthesia problems: none Family hx anesthesia problems: none PMFSH Past Medical History Medical History (Updated 07/18/20 @ 09:28 by Ari Jacobs MD) Anxiety Bladder cancer removed per cystoscopy without any chemo or radiation, Dr. Ovalle, approximately 2012. CAD (coronary artery disease) Cardiomyopathy Closed extra-articular fracture of distal end of left radius H/O blood clots HTN (hypertension) with goal to be determined Hypertension Surgical History Surgical History History of tonsillectomy and adenoidectomy No pertinent past surgical history Family History Family History Mother Sepsis Father Lung cancer Black lung disease Sibling Leukemia Other Unknown family medical history Social History Social History Social History: the patient is since 2018. She is a full code. She d oes not have a power compliance attorney. She does not have a primary care doctor and will need a list. She has 2 daughters, 1 of whom lives with her. Patient smokes a pack a cigarettes in about 3 days. 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 Smoking packs per day: 0.5 Smoking cigarettes per day: 10.0 Years smoked: 45 Smoking pack-years: 22.50 Smoking status: Current every day smoker Tobacco type: cigarettes Alcohol intake: never Substance use: never Living arrangements: with family Gender identity (if verbalized by the patient): Female Spiritual care concerns: No Agree to blood products: Yes Exam Day of Procedure 07/22/20 09:54 Patient weight: overweight Heart: regular rate and rhythm Lungs: decreased breath sounds Airway: Mallampati scale class II Neurological: alert and oriented
--- NOTE | 2020-07-22 09:54 | WPDHPUPDATE1 ---
History and Physical Update Update Date/Time: 07/22/20 09:54 History and Physical has been reviewed, including an updated exam of the patient. There are NO changes in the patient's condition. Risks, benefits, and alternatives have been discussed and questions answered. Patient agrees to proceed with procedure.
--- NOTE | 2020-07-22 10:05 | WPDANESEFPP ---
Anes - Eval Final PreProcedure Day of Procedure 07/22/20 10:05 Patient weight: overweight Heart: regular rate and rhythm Lungs: clear to auscultation and normal air movement Airway: Mallampati scale class II Neurological: alert and oriented Last oral intake: >/= 8 hours ASA classification: IV Emergent: no Anesthetic plan: proceed Anesthesia type and monitoring: general GIVS and LMA Informed Consent: The patient's anesthetic plan and its attendant risks and benefits were discussed with the patient/family/POA. Questions were solicited and answers provided to the satisfaction of the patient/family/POA.
--- NOTE | 2020-07-22 10:15 | WPDANESPNB ---
Anes - Peripheral Nerve Block Date/Time: 07/22/20 10:15 I have discussed with the patient/family/POA the placement of a peripheral nerve block for post-operative pain management, including associated risks, benefits, complications, and side effects. Alternative methods of post-operative analgesia were detailed. Questions were solicited and answers provided to the satisfaction of the patient/family/POA. Time-Out: A pre-procedural Time-Out was completed immediately before starting the procedure and confirmed: Patient Identification, Site, Procedure, Patient Position and the Availability of Requisite Equipment. Clinical Indications: Acute post-operative pain management requested by the operative surgeon. Nerve Block Insertion Note Anes-nerve block: supraclavicular left Patient position: supine Skin prep: chlorhexidine Needle: 22 gauge, stimulating, insulated echogenic needle. Needle length: 80 mm Technique: ultrasound (in plane) Injectate: bupivacaine 0.5% with epi 5 mcg/ml (20cc) Observations: tolerated well Complications: none Procedure start time:: 1015 Procedure end time:: 1020
[2020-07-22] MEDS: ceFAZolin 2 GM/D5W 50 ML 2 GM/50 ML BAG IVPB (10:27)
[2020-07-22] MEDS: ceFAZolin SODIUM 1 GM VIAL IV PUSH (11:44)
[2020-07-22 11:52] VITALS: BP 92/46; PULSE 65; RESP 15; TEMP 36.3; O2SAT 97
[2020-07-22 12:00] VITALS: BP 118/64; PULSE 69; RESP 16; O2SAT 99
--- NOTE | 2020-07-22 12:05 | PM.PROC ---
Procedure Note - Detailed Date of procedure: 07/22/20 Pre-op diagnosis: Left Distal Radius Fx Post-op diagnosis: same Procedure performed: ORIF left distal radius fracture Description of procedure: The patient was identified and the proper side identified. In the preop holding area, the anesthesia team performed a left upper extremity block. She was taken back to the operating room, transferred to the or table positioning supine taking care to pad her torso and extremities. After general anesthetic induction and intubation, a nonsterile tourniquet was placed high on the left arm which was prepped and draped in the usual sterile fashion. The extremity was exsanguinated and tourniquet inflated to 250 mmHg remaining up for approximately 50 minutes. A volar longitudinal incision was made along the FCR tendon distally. The subcutaneous tissue was sharply dissected protecting neurovascular structures. The FCR tendon was released from its sheath and retracted ulnarly. This allowed for the deep fascia of the forearm to be divided longitudinally in line with the incision. Care was taken to protect the volar compartment structures as well as the radial nerve and radial vascular structures. The pronator quadratus was elevated off of the distal radius allowing for inspection of the fracture site. The fracture fragments were disimpacted and able to be realigned virtually anatomically with fluoroscopic assistance. They were secured in this position with a short narrow plate from the DVR set. The plate was applied with fluoroscopic visualization to avoid penetration of the joint and to ensure optimal hardware placement. Once the plate was secure the overall construct was assessed fluoroscopically on the AP and lateral views. The virtually anatomic reduction was held very nicely. The construct was stable. The wound was irrigated with a copious amount of sterile antibiotic solution. Skin edges were reapproximated with two 0 strata fix and tissue adhesive. Sterile dressing was applied. Tourniquet was released. A well-padded short-arm volar wrist splint was fashioned. The procedure was well tolerated. There were no known intraoperative complications. Estimated blood loss was negligible. Anesthesia: GLMA and regional Surgeon: Ari Jacobs MD Estimated blood loss (mL): 5 Tourniquet time (min): 50 Drains: No Packing: No Pathology: none sent Complications: No immediate complications Condition: stable Disposition: PACU
[2020-07-22 12:15] VITALS: BP 125/61; PULSE 73; RESP 18; O2SAT 94
[2020-07-22 12:30] VITALS: BP 125/70; PULSE 67; RESP 20; O2SAT 94
[2020-07-22 12:45] VITALS: BP 132/65; PULSE 75; RESP 16
[2020-07-22 13:20] VITALS: BP 144/69; PULSE 68; RESP 14
== END 2020-07-22 13:47 | disposition home or self-care (01) ==
PROVIDERS: Visit Provider Orthopaedic Surgery
PROC: (CPT 25575; principal; 2020-07-22 10:30)
DX: S52.552A Other extraarticular fracture of lower end of left radius, initial encounter for closed fracture (principal); G89.18 Other acute postprocedural pain; W19.XXXA Unspecified fall, initial encounter; I25.10 Atherosclerotic heart disease of native coronary artery without angina pectoris; I42.9 Cardiomyopathy, unspecified; F41.9 Anxiety disorder, unspecified; I11.0 Hypertensive heart disease with heart failure; I50.9 Heart failure, unspecified; Z86.718 Personal history of other venous thrombosis and embolism; Z85.51 Personal history of malignant neoplasm of bladder; F17.210 Nicotine dependence, cigarettes, uncomplicated
CPT/HCPCS: 25607; 64415; A4565; A9270; C1713; J0690; J1100; J1885; J2250; J2590; J2704; J3010; J7120

== ENCOUNTER 2020-11-28 08:30 | Outpatient (RCR) | payer MEDICARE, SELFPAY ==
--- NOTE | 2020-09-16 09:45 | OTOPEVAL ---
OCCUPATIONAL THERAPY INITIAL EVALUATION 09/16/20 Thank you for referring Felipa Adams to [facility].? The patient is scheduled to be seen for therapy? 2x/week for 5 weeks. Please review, sign, date and return this plan of care RAYMUNDO. I agree with and certify that the following plan of care is medically necessary. Referring Physician Date Referring Provider: Ari Jacobs MD *OT Outpatient Evaluation Start: 09/16/20 08:37 Freq: Status: Active Protocol: Document 09/16/20 08:37 MARCOS (Rec: 09/16/20 09:45 MARCOS [email or web address]) Therapy Assessment Status Assessment Status Assessment Status Evaluation Outpatient Past Medical History Past Medical History Source of Past Medical History Recalled from Previous Visit, Confirmed with Patient/Family Neurological History Hx Neurological Disorders No Significant History Cardiovascular History Hx Cardiomyopathy Yes Hx Deep Vein Thrombosis Yes: SEPTEMBER 2019 LT LOWER LEG TREATED WITH ELIQUIS. NO LONGER TAKING Hx Hypercholesterolemia Yes Hx Hypertension Yes Hx Other Cardiac Disorders Yes: DR CUENCA EVERY 6 MONTHS Respiratory History Hx Respiratory Disorders No Significant History Gastrointestinal History Hx Gastrointestinal Disorders No Significant History Genitourinary History Hx Bladder Surgery Yes: bladder cancer 2006 Musculoskeletal History Hx Fractures Yes: left shoulder 60 years ago Hx Other Musculoskeletal Disorders Yes: LT DISTAL RADIUS FX Hematological History Hx Hematological Disorders No Significant History Endocrine History Hx Endocrine Disorders No Significant History HEENT History Hx Tonsillectomy Yes: A CHILD Hx Other HEENT Disorders Yes: READING GLASSES Integumentary History Hx Skin Disorders No Significant History Reproductive History Hx Post Menopausal Yes Psychosocial History Hx Psychiatric Disorders No Significant History Pain History History of Any Previous or Ongoing No Significant History Instance of Pain Anesthesia History Hx Anesthesia Reactions No Significant History Other History Hx Cancer Yes: Bladder Evaluation Information Problem Diagnosis Left distal radius fracture s/p ORIF Onset ORIF 07/22/20 Prior Level of Function Activity Level (Last 3 Months) 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
--- NOTE | 2020-09-30 08:30 | PCOTNOTE ---
Patient called & cancelled scheduled appointment this date due to not feeling well.
--- NOTE | 2020-10-22 09:16 | OTOPEVAL ---
OCCUPATIONAL THERAPY RE-EVALUATION REPORT 10/22/20 OT re-evaluation shows progress with functional ROM in all joints of the distal UE. Forearm and wrist have returned to normal limits with some residual weakness. The hand continues to be stiff and weak. Gross flexion of the fingers continues to be limited, but she is progressing and verbalizes compliance with HEP. In the clinic she continues to require visual, verbal, and tactile cues to complete HEP with proper mechanics. Overall, the patient is progressing slowly and steadily. Continued OT indicated for progression of HEP, modalities, and manual therapy to facilitate optimal functional use of the left hand. Thank you for referring Felipa [facility] to [facility].? The patient is scheduled to be seen for continued occupational therapy?2x/week for 4 weeks. Therapy to resume week of 11/04 due to patient's transportation being out of town next week. Please review, sign, date and return this plan of care RAYMUNDO. I agree with and certify that the following plan of care is medically necessary. Referring Physician Date Referring Provider: Ari Jacobs MD *OT Outpatient Re-Evaluation Re-Evaluation Information Problem Diagnosis Left distal radius fracture s/p ORIF Onset ORIF 07/22/20 Additional Evaluation Detail OT began 09/16/20. She has participated in 5 weeks of therapy focused on improving functional ROM and strength of her left UE. Subjective Information Patient states she has Query Text:As Reported By Patient/ returned to using her left Family hand for ADLs, cooking, and laundry. She has returned to being independent with ADLs. Pain Assessment Timing of Pain Assessment Timing of Pain Assessment Re-assessment Pain Scale Pain Scale Used Numeric (1 - 10) Self Report Pain Assessment Left Wrist(s) Reported Pain Level 0 Lowest Pain Intensity 0 Greatest Pain Intensity 1 Pain Score Pain Score 0: Self Report Interventions Used Interventions Used By Clinicians Education Upper Extremity Range of Motion Elbow/Forearm Range of Motion Left Forearm Supination - Active 80 Forearm Pronation - Active 80 Elbow/Forearm Range of Motion Comments Active elbow flex/ext is WNL. Supination improved from 55* Pronation improved from 70* Wrist Range of Motion Left Wrist Flexion - Active 70 Wrist Extension - Active 50 Wrist Extension - Passive 60 Wrist Radial Deviation - Active 15 Wrist Ulnar Deviation - Active 30 Wrist Range of Motion Comments Flexion improved from 35* Extension improved from 20* RD improved from 5* UD improved from 20* Finger Range of Motion Left Index Finger Tip to Distal Palmar Crease 1 - Active
--- NOTE | 2020-11-28 09:13 | OTOPEVAL ---
OCCUPATIONAL THERAPY RE-EVALUATION AND D/C SUMMARY 11/28/20 Patient presents for final OT re-evaluation following 10 weeks of therapy. Patient's ROM and strength have returned to funtional limits. She continues to have some residual edema in the fingers that is restricting a composite hook fist, particularly with the index and middle fingers. Overall she has had a slow but steady functional return in a composite fist despite the residual edema. Elbow, forearm, and wrist strength are within normal limits. She has been instructed in HEP to continue to improve ROM and strength of the left hand. No further skilled OT is indicated at this time. Thank you for referring Felipa Adams to [facility] [place].? Please review, sign, date and return this D/C Summary RAYMUNDO. I agree with and certify that the following plan of care is medically necessary. Referring Physician Date Referring Provider: Ari Jacobs MD *OT Outpatient Re-Evaluation Start: 09/16/20 08:37 Problem Diagnosis Left distal radius fracture s/ p ORIF Onset ORIF 07/22/20 Additional Evaluation Detail OT began 09/16/20. She has participated in 10 weeks of therapy focused on improving functional ROM and strength of her left UE. Subjective Information Patient states her hand is Query Text:As Reported By Patient/ back to normal . Stating that Family she can use her hand without thinking about it. Reports no pain. Does report stiffness in the morning. Pain Assessment Timing of Pain Assessment Timing of Pain Assessment Assessment Self Report Self Report Pain Level 0 Pain Score Pain Score 0: Self Report Upper Extremity Range of Motion Elbow/Forearm Range of Motion Left Forearm Supination - Active 80 Forearm Pronation - Active 80 Elbow/Forearm Range of Motion Comments Active elbow flex/ext is WNL. Forearm rotation is symmetrical to the right arm. Wrist Range of Motion Left Wrist Flexion - Active 70 Wrist Extension - Active 55 Wrist Extension - Passive 65 Wrist Radial Deviation - Active 15 Wrist Ulnar Deviation - Active 30 Wrist Range of Motion Comments Since SOC: Flexion improved from 35* Extension improved from 20* RD improved from 5* UD improved from 20* Finger Range of Motion Left Finger Range of Motion Comments Index through pinky are now able to touch the palm when attempting to make a full fist . Good active composite flexion with MCP, PIP, an
== END 2020-12-02 10:25 | disposition home or self-care (01) ==
LOC: ANHOT 08:30
PROVIDERS: Visit Provider Orthopaedic Surgery
DX: Z47.89 Encounter for other orthopedic aftercare (principal)
CPT/HCPCS: 97018; 97110; 97140; 97165

== ENCOUNTER 2021-01-20 13:47 | Outpatient (CLI) | payer MEDICARE, SELFPAY ==
--- NOTE | ~2021-01-20 | CT_ITS ---
EXAMINATION:CT lung screening DATE: 01/20/2021 14:13 INDICATION: Personal history of tobacco dependence. TECHNIQUE: Computed tomography (CT) of the chest was performed without intravenous contrast. Automate d exposure control and iterative reconstruction technique were employed. The dose-length product (DLP ) was 108.24 mGy-cm. COMPARISON: Chest CT 09/22/2019 FINDINGS: Mild motion artifact is noted. There is stable mild scarring at the lung apices. There is m ild emphysema. There is mild atelectasis bilaterally. There is a stable 5 mm part solid nodule in jefe gula. No pleural effusion. There is a 14 mm calcified nodule in right thyroid lobe, likely not clinic ally significant. Cardiomegaly is noted. There are coronary artery calcifications. There are calcific ations of the aortic valve. No pericardial effusion. There is a 4.6 cm cyst in left kidney. There are bridging endplate osteophytes at multiple levels in the spine, consistent with diffuse idiopathic sk eletal hyperostosis (DISH). There is a hemangioma in T6 vertebral body. IMPRESSION: 1. Lung-RADS category 2: Benign appearance or behavior. Continue annual screening with noncontrast lo w-dose chest CT in 12 months. Reviewed, dictated and finalized at location A. IMPRESSION: 1. Lung-RADS category 2: Benign appearance or behavior. Continue annual screeni ng with noncontrast low-dose chest CT in 12 months.
== END 2021-01-20 13:48 | disposition home or self-care (01) ==
PROVIDERS: Visit Provider Nurse Practitioner
DX: Z12.2 Encounter for screening for malignant neoplasm of respiratory organs (principal); Z87.891 Personal history of nicotine dependence
CPT/HCPCS: 71271

== ENCOUNTER 2023-01-10 12:06 | Inpatient (IN) | payer MEDICARE, SELFPAY ==
[2023-01-10] VITALS (34 sets, daily range): BP systolic 115–167; BP diastolic 43–94; PULSE 86–117; RESP 18–40; TEMP 36.6–36.9; O2SAT 87–100; BMI 27.3
--- NOTE | ~2023-01-10 | US_ITS ---
EXAMINATION: US abdomen limited DATE: 01/12/2023 15:24 INDICATION: look for ascites TECHNIQUE: Multiple grayscale and Doppler ultrasound images of limited portions of the abdomen were o btained. COMPARISON: None available. FINDINGS: Sonographic interrogation of the abdominal quadrants reveal no free fluid. IMPRESSION: No ascites. Reviewed, dictated and finalized at location K. IMPRESSION: No ascites.
--- NOTE | ~2023-01-10 | XR_ITS ---
XR chest 2V DATE: 01/10/2023 12:47 INDICATION: Shortness of breath. COPD. TECHNIQUE: 8 CDT and lateral views COMPARISON: 01/30/2021 CT chest FINDINGS: Cardiomegaly. Aortic calcification. There is patchy infiltrate in the right upper lobe, particularly the posterior segment. Mild discoid atelectasis or scarring in the right lower lung. The left lung appears clear. No pleural effusion or pulmonary vascular congestion or pneumothorax is detected. Diffuse osteopenia. IMPRESSION: Patchy right upper lobe infiltrate involving primarily the posterior segment suggesting p neumonia Mild discoid atelectasis or scarring, right lower lung Cardiomegaly, aortic atherosclerosis Osteopenia Reviewed, dictated and finalized at location A. IMPRESSION: Patchy right upper lobe infiltrate involving primarily the posterio r segment suggesting pneumonia Mild discoid atelectasis or scarring, right lower lung Cardiomegaly, aortic atherosclerosis Osteopenia
--- NOTE | ~2023-01-10 | CT_ITS ---
EXAMINATION: CTA chest PE protocol DATE: 01/10/2023 14:33 INDICATION: Shortness of breath. TECHNIQUE: Computed tomography angiography (CTA) of the chest was performed with 100 mL Omnipaque-350 intravenous contrast timed to evaluate the pulmonary arteries. Coronal maximum intensity projection 3D-reconstructions were created by the technologist. Automated exposure control and iterative reconst ruction technique were employed. The dose-length product was 422.80 mGy-cm. COMPARISON: Chest CT 01/20/2021 FINDINGS: There is mild emphysema. There are airspace and groundglass opacities in right upper lobe, consistent with pneumonia. There is mild atelectasis bilaterally. There is mild scarring at the lung apices. No pleural effusion. Cardiomegaly is noted. There are coronary artery calcifications. No becky cardial effusion. There is no pulmonary embolus. The central pulmonary arteries are enlarged, consist ent with pulmonary artery hypertension. Aortic atherosclerosis is noted. There is a 7 mm cyst in the liver. There are bridging endplate osteophytes at multiple levels in the spine, consistent with diffu se idiopathic skeletal hyperostosis (DISH). There is a hemangioma in T6 vertebral body. IMPRESSION: 1. Right upper lobe pneumonia. 2. No pulmonary embolus. Sensitivity is severely decreased by motion artifact. If there is high clini otf probability for pulmonary embolus, repeat CTA is recommended. 3. Mild emphysema. Reviewed, dictated and finalized at location E. IMPRESSION: 1. Right upper lobe pneumonia. 2. No pulmonary embolus. Sensitivity is severely decreased by motion artifact. If there is high clinical probability for pulmonary embolus, repeat CTA is ancelmo mmended. 3. Mild emphysema.
--- NOTE | ~2023-01-10 | US_ITS ---
EXAMINATION: US venous doppler [facility] DATE: 01/11/2023 16:03 INDICATION: edema . TECHNIQUE: Grayscale images without and with compression and Doppler images of the bilateral lower ex tremity veins were obtained. COMPARISON: 09/23/2019 FINDINGS: The right common femoral vein, profunda (deep) femoral vein, femoral vein, popliteal vein, peroneal v ein, posterior tibial veins, gastrocnemius vein, and greater saphenous vein are patent. The left common femoral vein, profunda (deep) femoral vein, femoral vein, popliteal vein, peroneal v ein, posterior tibial veins, gastrocnemius vein, and greater saphenous vein are patent. IMPRESSION: 1. Patent bilateral lower extremity veins. No evidence of deep venous thrombosis. Reviewed, dictated and finalized at location K. IMPRESSION: 1. Patent bilateral lower extremity veins. No evidence of deep venous thrombos is.
--- NOTE | ~2023-01-10 | XR_ITS ---
EXAMINATION: XR chest 1V portable DATE: 01/12/2023 08:56 INDICATION: Cough. Increased oxygen demand. TECHNIQUE: A single frontal view of the chest was obtained. COMPARISON: Chest 2 views 01/10/2023, chest CT 01/10/2023 FINDINGS: There are airspace opacities in right lung with an upper lobe predominance. No pleural effu kaylee or pneumothorax. Cardiomegaly is noted. IMPRESSION: 1. Right lung airspace opacities predominantly involving right upper lobe, stable from 01/10/2023, con sistent with pneumonia. 2. Cardiomegaly. Reviewed, dictated and finalized at location A. IMPRESSION: 1. Right lung airspace opacities predominantly involving right upper lobe, stab le from 01/10/2023, consistent with pneumonia. 2. Cardiomegaly.
--- NOTE | 2023-01-10 12:14 | ECG_ITS ---
Measurements Intervals [place] Rate: 113 P: 75 IN: 190 QRS: 72 QRSD: 150 T: 15 QT: 302 QTc: 416 Interpretive Statements SINUS TACHYCARDIA POSSIBLE RIGHT ATRIAL ENLARGEMENT POSSIBLE LEFT ATRIAL ENLARGEMENT RIGHT BUNDLE BRANCH BLOCK BASELINE WANDER- II, V4-V6 ABNORMAL ECG COMPARED TO ECG 09/22/2019 09:58:55 NO SIGNIFICANT CHANGES Electronically Signed On 01-11-2023 0:04:41 CDT by Nic Harris D.O.
[2023-01-10 12:33] LABS: Basophils Absolute Auto 0.1 K/mm3 (0.0-0.1); Basophils Percent Auto 0.3 % (0.2-1.2); Eosinophils Percent Auto 0.1 % (0-4.4); Hematocrit 51.2 % (37.0-47.0); Hemoglobin 17.1 g/dL (12.0-15.0); Immature Granulocyte Absolute 0.14 K/mm3 (0.00-0.031); Immature Granulocyte Percent A 0.7 % (0-0.5); Lymphocytes Absolute Auto 1.25 K/mm3 (0.9-3.2); Lymphocytes Percent Auto 6.2 % (18.3-44.2); Mean Corpuscular HGB Conc 33.4 g/dl (32-36); Mean Corpuscular Hemoglobin 30.4 pg (26-34); Mean Corpuscular Volume 91.1 fl (80-100); Mean Platelet Volume 10.4 fl (7.4-10.4); Monocytes Absolute Auto 1.4 K/mm3 (0.1-0.6); Monocytes Percent Auto 6.8 % (2.6-8.5); Neutrophils Absolute Auto 17.5 K/mm3 (1.3-6.7); Neutrophils Percent Auto 85.9 % (45.5-73.1); Platelet Count Result 172 k/mm3 (150-375); Red Blood Count 5.62 M/mm3 (4.2-5.4); Red Cell Distribution Width 13.1 % (11.5-14.5); White Blood Count 20.3 K/mm3 (4.5-10.0)
--- NOTE | 2023-01-10 12:45 | ED.SOB ---
HPI - SOB/Dyspnea General Chief Complaint: Shortness of Breath/Dyspnea Stated Complaint: shortness of breath? Time Seen by Provider: 01/10/23 12:11 History of Present Illness HPI Narrative: This is a 77-year-old female, past history of CHF, COPD who presents emergency department complaining of shortness of breath back pain for the past day. Patient states her symptoms began with cramping right-sided low back pain, rated 4/10 that gradually worsened throughout the day. She then developed shortness of breath. She denies any recent sick contacts or fevers. She complains of some cough that is not productive of sputum or blood. Her daughter, who is at bedside notes patient has been bedbound for the past several days. Related Data Home Medications Medication Instructions Recorded Confirmed atorvastatin 40 mg tablet 40 mg PO QAM 07/18/20 12/04/20 carvedilol 6.25 mg tablet 6.25 mg PO BID 07/18/20 12/04/20 ergocalciferol (vitamin D2) 1,250 50,000 unit PO WEEKLY 07/18/20 12/04/20 mcg (50,000 unit) capsule lisinopril 10 mg tablet 20 mg PO DAILY 07/18/20 12/04/20 Allergies Allergy/AdvReac Type Severity Reaction Status Date / Time No Known Allergies Allergy Unknown Verified 01/10/23 12:18 Review of Systems Review of Systems: CONSTITUTIONAL: Denies fever, chills, or sweats. CARDIOVASCULAR: Denies chest pain, palpitations, or edema. RESPIRATORY: Dyspnea and cough GASTROINTESTINAL: Denies abdominal pain, nausea, vomiting, or diarrhea. GENITOURINARY: Denies dysuria or hematuria. SKIN: Denies rash or itching. MUSCULOSKELETAL: Right mid back pain denies joint pain, or myalgia. NEUROLOGIC: Denies headache, numbness, dizziness, or weakness. PSYCHIATRIC: Denies anxiety or depression. [facility] Past Medical History Medical History (Updated 01/10/23 @ 17:17 by Sanket Dmepsey MD) Anxiety Bladder cancer (04/2011) Status post transurethral resection of bladder tumor with fulguration. CAD (coronary artery disease) Cardiomyopathy Combined systolic and diastolic congestive heart failure Echocardiogram in September 2019 showed normal LV size with moderate concentric hypertrophy, moderately severe global LV dysfunction with no focal wall motion abnormalities, visually estimated EF of 30 to 35%, and grade 2 diastolic dysfunction. Hypertension Left leg DVT (09/2019) Tobacco dependence Surgical History Surgical History (Updated 01/10/23 @ 16:54 by Karla Modi PA-C) History of open reduction and internal fixation (ORIF) procedure (07/2020) Repair left distal radial fracture History of tonsillectomy and adenoidectomy History of transurethral resection of bladder tumor (TURBT) (04/2011) Family History Family History (Updated 01/10/23 @ 16:52 by Karla Modi PA-C) Mother Sepsis Father Lung cancer Black lung disease Sibling Leukemia Social History Social History (Updated 01/10/23 @ 16:56 by Karla Modi PA-C) Social History: Surrogate medical decision maker: Code status: Full code. Smoking packs per day: 0.5 Smoking cigarettes per day: 10.0 Years smoked: 45 Smoking pack-years: 22.50 Smoking status: Current every day smoker Tobacco type: cigarettes Alcohol intake: never Substance use: never Living arrangements: with family Additional living arrangements comments: as of 2017. She has 2 daughters. Occupation/Education: retired Additional occupation/education comments: Retired from a [employer]. Spiritual care concerns: No Agree to blood products: Yes Exam Narrative: GENERAL: Well-developed, well-nourished, in mild distress due to dyspnea HEAD: Normocephalic, atraumatic. EYES: PERRLA and EOMI. ENT: Nares clear, no rhinorrhea or epistaxis. Mucous membranes moist. Oropharynx without tonsillar hypertrophy exudate or other lesions. NECK: Supple. No adenopathy or masses. No JVD CHEST: Tachypneic with expiratory wheeze. No respiratory distress. No ral
[2023-01-10] MEDS: ALBUTEROL SULFATE NEB 2.5 MG/3 ML INH 10 MG INHALATION (12:52)
[2023-01-10] MEDS: IPRATROPIUM BR 0.02% INH SOLN 0.5 MG/2.5 ML VIAL INHALATION (12:53)
[2023-01-10] MEDS: MAGNESIUM SULF 2 GM/WATER 50ML 2 GM/50 ML BAG IVPB (12:59)
[2023-01-10] MEDS: methylPREDNISolone SOD SUCC 125 MG VIAL IV PUSH (12:59)
[2023-01-10 13:29] LABS: Alanine Aminotransferase 30 U/L (6-35); Albumin Level 4.5 g/dL (3.5-5.1); Alkaline Phosphatase 90 U/L (38-126); Anion Gap 8 mmol/L (8-16); Aspartate Amino Transferase 25 U/L (14-36); Bilirubin,Total 1.5 mg/dL (0.2-1.3); Blood Urea Nitrogen 15 mg/dL (7-17); Carbon Dioxide 27 mmol/L (22-30); Chloride 101 mmol/L (98-107); Estimated CRCL calculation 54 ml/min; Estimated Glomerular Filt Rate > 60; Glucose 146 mg/dL (65-110); Sodium 136 mmol/L (137-145)
[2023-01-10 13:40] LABS: NT Pro B Type Natriuretic Pept 1230 pg/mL (19.9-100); Troponin I < 0.012 ng/mL (0.000-0.034)
[2023-01-10 13:42] LABS: Partial Thromboplastin Time 29.3 SECONDS (22.3-36.8); Prothrombin Time 13.5 Seconds (11.1-14.7)
[2023-01-10] MEDS: MORPHINE SULFATE (*CRX) 2 MG/ML INJ IV PUSH (14:50)
[2023-01-10] MEDS: AZITHROMYCIN 500 MG/NS 250 ML 500 MG/250 ML BAG 250 MG IVPB (15:04)
--- NOTE | 2023-01-10 16:50 | PC.NURSE ---
This patient, Felipa Adams, was admitted to Medical Room 243-01. Patient/family oriented to hospital policies and general routines including ID bracelet, bed and alarms, visiting hours, pain management, procedures, bathroom and other care routines, personal items, smoking policy, room service/diet, and visiting hours. Information on how to activate the Rapid Response Team has been discussed. Patient/Family are encouraged to report perceived risks to care and to ask questions if they do not understand what they are told or what they should do.
--- NOTE | 2023-01-10 16:50 | PM.IMHP ---
H&P: HPI History of Present Illness Date/Time: 01/10/23 20:15 Chief Complaint: Shortness of breath and right back pain. Narrative: This is a 77-year-old female smoker with chronic obstructive pulmonary disease, hypertension, hyperlipidemia, combined systolic and diastolic congestive heart failure, and history of DVT presented to the emergency department via private vehicle from home for evaluation of shortness of breath and right back pain. The patient provides the following history. Her daughters provides additional information with the patient's permission. She is sedentary at baseline however is able to go shopping at the grocery stores long as she has a cart to lean on. She does get short of breath with activity however nothing significant. Yesterday she was feeling a bit more short of breath than normal and when she got up this morning she had pleuritic pain in the right mid back. It seems to be worse with deep inspiration and cough. The pain became pretty intense and she mentioned it to her daughter who decided to bring her in for evaluation. She denies fever, chills, sweats, sinus congestion, sore throat, exertional chest pain, nausea, vomiting, and diarrhea. She was afebrile on arrival to the ED with stable vital signs. Labs were significant for a WBC count of 20.3, hemoglobin 17.1, sodium 136, BUN 15, creatinine 0.80, troponin less than 0.012, proBNP 1230. Chest CTA showed right upper lobe pneumonia. There was no evidence of pulmonary embolus however severity was severely decreased by motion artifact. She was started on azithromycin and ceftriaxone and she is being admitted in this setting for further treatment. At the time my evaluation she is eating dinner and does not have any specific complaints. Review of Systems Review of Systems: Twelve systems were reviewed and are negative except for as per HPI. [facility] Past Medical History Medical History (Updated 01/11/23 @ 00:24 by Karla Modi PA-C) Anxiety Bladder cancer (04/2011) Status post transurethral resection of bladder tumor with fulguration. Cardiomyopathy Combined systolic and diastolic congestive heart failure Echocardiogram in September 2019 showed normal LV size with moderate concentric hypertrophy, moderately severe global LV dysfunction with no focal wall motion abnormalities, visually estimated EF of 30 to 35%, and grade 2 diastolic dysfunction. Hypertension Left leg DVT (09/2019) Tobacco dependence Surgical History Surgical History (Updated 01/10/23 @ 16:54 by Karla Modi PA-C) History of open reduction and internal fixation (ORIF) procedure (07/2020) Repair left distal radial fracture History of tonsillectomy and adenoidectomy History of transurethral resection of bladder tumor (TURBT) (04/2011) Family History Family History (Updated 01/10/23 @ 16:52 by Karla Modi PA-C) Mother Sepsis Father Lung cancer Black lung disease Sibling Leukemia Social History Social History (Updated 01/11/23 @ 00:24 by Karla Modi PA-C) Social History: Surrogate medical decision maker: Elisabet Ruiz, daughters. Code status: Full code. Smoking packs per day: 0.5 Smoking cigarettes per day: 10.0 Years smoked: 45 Smoking pack-years: 22.50 Smoking status: Current every day smoker Tobacco type: cigarettes Alcohol intake: never Substance use: never Lack of Transportation: No Lack of Food: Never True Current Housing: I Have Housing Concerned About Future Housing: No Difficulty Paying Gas/Electric Bills: No Difficulty Paying for Meds: No Currently Unemployed: No Education: High School Diploma/GED Difficulty w/ Childcare or Family Care: No Living arrangements: with family Additional living arrangements comments: as of 2017. She has 2 daughters. Occupation/Education: retired Additional occupation/education comments: Retired from a [employer]. Spiritual care concerns: No Agree to blood p
[2023-01-10 16:52] LABS: Troponin I < 0.012 ng/mL (0.000-0.034)
[2023-01-10] MEDS: ALBUTEROL SULFATE NEB 2.5 MG/3 ML INH INHALATION (21:05)
[2023-01-11] VITALS (17 sets, daily range): BP systolic 123–177; BP diastolic 65–86; PULSE 73–96; RESP 17–20; TEMP 36.2–37.1; O2SAT 93–96
[2023-01-11 06:00] LABS: Hematocrit 50.4 % (37.0-47.0); Hemoglobin 16.2 g/dL (12.0-15.0); Mean Corpuscular HGB Conc 32.1 g/dl (32-36); Mean Corpuscular Volume 93.3 fl (80-100); Mean Platelet Volume 9.1 fl (7.4-10.4); Platelet Count Result 160 k/mm3 (150-375); White Blood Count 21.6 K/mm3 (4.5-10.0)
[2023-01-11 06:08] LABS: Anion Gap 6 mmol/L (8-16); Blood Urea Nitrogen 17 mg/dL (7-17); Calcium 8.6 mg/dL (8.4-10.2); Carbon Dioxide 27 mmol/L (22-30); Chloride 101 mmol/L (98-107); Estimated CRCL calculation 54 ml/min; Estimated Glomerular Filt Rate > 60; Glucose 172 mg/dL (65-110); Potassium 4.2 mmol/L (3.4-5.0); Sodium 134 mmol/L (137-145)
[2023-01-11 07:19] LABS: Band Neutrophils Percent 16 % (0-6); Lymphocytes Absolute Manual 0.86 K/mm3 (1.1-4.5); Monocytes Absolute Manual 1.08 K/mm3 (0.1-0.90); Monocytes Percent Manual 5 % (3-9); Neutrophils Absolute Manual 19.65 K/mm3 (1.7-7.2); Neutrophils Percent Manual 75 % (46-73); Platelet Estimate Adequate (Adequate); Total Cells Counted 100
[2023-01-11 07:20] LABS: Burr Cells 1+ (NORMAL); Platelet Clumps Present; Schistocytes None Seen (NORMAL)
[2023-01-11] MEDS: ALBUTEROL SULFATE NEB 2.5 MG/3 ML INH INHALATION ×3 (08:31→19:47)
[2023-01-11 08:39] LABS: Alveolar/Arterial O2 Gradient 57.3 mmHg; Base Excess ABG 0.3 mEq/l (+/-2.0); Carboxyhemoglobin 0.3 % THb (0-2.0); Fractional Inspired Oxygen 26 %; HCO3 ABG 26.9 mEq/l (22.0-26.0); Methemoglobin ABG 0.4 %THb (0-1.5); Oxygen Saturation ABG 92.7 % (95.0-100.0); Oxyhemoglobin 93.1 % THb (90.0-100.0); PCO2 ABG 50.2 mmHg (35.0-45.0); PO2 ABG 68.6 mmHg (80.0-100.0); PO2 FiO2 Ratio Arterial Blood 2.64 %; Reduced Hemoglobin 6.2 %THb (0-5.0); Total Hemoglobin 16.8 g/dL (12.0-18.0); pH ABG 7.347 (7.350-7.450)
[2023-01-11 08:40] LABS: Device NASAL CANNULA; Liters per Minute 1.5 LPM; Modified Allen's Test Pass; Site Drawn RIGHT RADIAL
[2023-01-11] MEDS: VALSARTAN 160 MG TABLET PO (09:11)
[2023-01-11] MEDS: guaiFENesin 12 HR 600 MG TABCR PO ×2 (09:11→20:09)
[2023-01-11] MEDS: amLODIPine BESYLATE 5 MG TABLET BY MOUTH (09:12)
[2023-01-11] MEDS: FUROSEMIDE 20 MG TABLET PO (09:13)
[2023-01-11] MEDS: carvediloL 6.25 MG TABLET PO ×2 (09:13→20:09)
[2023-01-11] MEDS: PANTOPRAZOLE 40 MG TABLET PO (09:13)
[2023-01-11] MEDS: ACETAMINOPHEN 325 MG TABLET 650 MG PO (09:22)
[2023-01-11] MEDS: ENOXAPARIN 40 MG/0.4 ML SYRINGE SUB-Q (09:22)
--- NOTE | 2023-01-11 11:45 | P.PNIM_ITS ---
Progress Note: A&P Assessment and Plan (1) Right upper lobe pneumonia: Qualifiers: Pneumonia type: due to unspecified organism Qualified Code(s): J18.9 - Pneumonia, unspecified organism Code(s): J18.9 - Pneumonia, unspecified organism Status: Acute Assessment and Plan: * presented to the emergency department for evaluation of shortness of breath and right back pain * WBC elevated at 21.6 currently from 20.3 * urine antigens pending * CTA Rt. Upper lobe PNA * Chest xray shows patchy RUL infiltrate suggesting PNA * Continue azithromycin and ceftriaxone * Neb treatment * Supplemental oxygen as indicated, currently on 1L * Trend labs * Repeat chest xray in am * anti-tussives * Sputum cultures * tailor antibiotics appropriately (2) Polycythemia: Code(s): D75.1 - Secondary polycythemia Status: Acute Assessment and Plan: * H/H 16.2/50.4 * MCV 93.3 * Most likely related smoking * Continue to trend H/H * appears stable (3) Tobacco dependence: Code(s): F17.200 - Nicotine dependence, unspecified, uncomplicated Status: Acute Assessment and Plan: * Current smoker * 22.5 Pack years * Nicotine Patch and gum * Smoking cessation edcation performed >8 minutes (4) Combined systolic and diastolic congestive heart failure: Qualifiers: Heart failure chronicity: chronic Qualified Code(s): I50.42 - Chronic combined systolic (congestive) and diastolic (congestive) heart failure Code(s): I50.40 - Unspecified combined systolic (congestive) and diastolic (congestive) heart failure Status: Acute Assessment and Plan: * Chest xray and CTA indicated cardiomegaly * BNP elevated at 1230 * Echo from 2019 showed EF of 30-35% with a grade 2 diastolic heart failure * Continued lasix 20mg PO daily, carvedilol, amlodipine/valsartan * One dose of IV lasix 40mg IV * Daily weights * Trend urine output * appears to be a chronic combined systolic and diastolic heart failure without exacerbation * Stable (5) Acute exacerbation of chronic obstructive pulmonary disease: Code(s): J44.1 - Chronic obstructive pulmonary disease with (acute) exacerbation Status: Acute Assessment and Plan: * CTA shows emphysema * Neb treatments * most likely related to PNA * Apnea link for tonight * Consider starting chronic inhalers (6) Sepsis: Qualifiers: Sepsis acute organ dysfunction status: without acute organ dysfunction Sepsis type: sepsis due to unspecified organism Qualified Code(s): A41.9 - Sepsis, unspecified organism Code(s): A41.9 - Sepsis, unspecified organism Status: Acute Assessment and Plan: * Meets SIR criteria with tachypnea (28-36), Tachycardia (106-115), WBC elevated at 20.3 and a source of infection * Source of infection is pneumonia * Blood cultures obtained * Sputum culture ordered * Urine antigens pending * WBC currently 21.6 * Continue to trend WBC * Continue IV antibiotics (7) Hypertension: Qualifiers: Hypertension type: primary hypertension Qualified Code(s): I10 - Essential (primary) hypertension Code(s): I10 - Essential (primary) hypertension Status: Acute Assessment and Plan: * Current BP is 179/86 * Continue home medications
--- NOTE | 2023-01-11 11:45 | PM.IMPN ---
Progress Note: A&P Assessment and Plan (1) Right upper lobe pneumonia: Qualifiers: Pneumonia type: due to unspecified organism Qualified Code(s): J18.9 - Pneumonia, unspecified organism Code(s): J18.9 - Pneumonia, unspecified organism Status: Acute Assessment and Plan: presented to the emergency department for evaluation of shortness of breath and right back pain WBC elevated at 21.6 currently from 20.3 urine antigens pending CTA Rt. Upper lobe PNA Chest xray shows patchy RUL infiltrate suggesting PNA Continue azithromycin and ceftriaxone Neb treatment Supplemental oxygen as indicated, currently on 1L Trend labs Repeat chest xray in am anti-tussives Sputum cultures tailor antibiotics appropriately (2) Polycythemia: Code(s): D75.1 - Secondary polycythemia Status: Acute Assessment and Plan: H/H 16.2/50.4 MCV 93.3 Most likely related smoking Continue to trend H/H appears stable (3) Tobacco dependence: Code(s): F17.200 - Nicotine dependence, unspecified, uncomplicated Status: Acute Assessment and Plan: Current smoker 22.5 Pack years Nicotine Patch and gum Smoking cessation edcation performed >8 minutes (4) Combined systolic and diastolic congestive heart failure: Qualifiers: Heart failure chronicity: chronic Qualified Code(s): I50.42 - Chronic combined systolic (congestive) and diastolic (congestive) heart failure Code(s): I50.40 - Unspecified combined systolic (congestive) and diastolic (congestive) heart failure Status: Acute Assessment and Plan: Chest xray and CTA indicated cardiomegaly BNP elevated at 1230 Echo from 2020 showed EF of 30-35% with a grade 2 diastolic heart failure Continued lasix 20mg PO daily, carvedilol, amlodipine/valsartan One dose of IV lasix 40mg IV Daily weights Trend urine output appears to be a chronic combined systolic and diastolic heart failure without exacerbation Stable (5) Acute exacerbation of chronic obstructive pulmonary disease: Code(s): J44.1 - Chronic obstructive pulmonary disease with (acute) exacerbation Status: Acute Assessment and Plan: CTA shows emphysema Neb treatments most likely related to PNA Apnea link for tonight Consider starting chronic inhalers (6) Sepsis: Qualifiers: Sepsis acute organ dysfunction status: without acute organ dysfunction Sepsis type: sepsis due to unspecified organism Qualified Code(s): A41.9 - Sepsis, unspecified organism Code(s): A41.9 - Sepsis, unspecified organism Status: Acute Assessment and Plan: Meets SIR criteria with tachypnea (28-36), Tachycardia (106-115), WBC elevated at 20.3 and a source of infection Source of infection is pneumonia Blood cultures obtained Sputum culture ordered Urine antigens pending WBC currently 21.6 Continue to trend WBC Continue IV antibiotics (7) Hypertension: Qualifiers: Hypertension type: primary hypertension Qualified Code(s): I10 - Essential (primary) hypertension Code(s): I10 - Essential (primary) hypertension Status: Acute Assessment and Plan: Current BP is 179/86 Continue home medications Most likely uncontrolled with current medical condition trend BP Adjust therapy as indicated Time Spent With Patient Time: 51 minutes Time with patient: Greater than 35 minutes Subjective Date/time seen: 01/11/23 1145 Interval history: 01/11/23 114 Patient was lying in bed. Patient stated that she is not sleeping very good. She is still having that back pain on the right flank area. She rates her pain as 6/10. She is currently on oxygen however does not use oxygen at home. She does still have a slight cough however nothing stamina. She denies any current ches
[2023-01-11] MEDS: AZITHROMYCIN 500 MG/NS 250 ML 500 MG/250 ML BAG 250 MG IVPB (16:07)
[2023-01-11] MEDS: ATORVASTATIN 40 MG TABLET 80 MG PO (20:10)
[2023-01-12] VITALS (22 sets, daily range): BP systolic 114–158; BP diastolic 62–70; PULSE 59–83; RESP 16–20; TEMP 36.4–37; O2SAT 90–98
--- NOTE | 2023-01-12 | ECHO_ITS ---
Patient Info Name: Felipa Adams Age: 77 years : 1945 Gender: Female Ht: 66 in Wt: 172 lbs BSA: 1.92 m2 HR: 78 bpm BP: 138 / 62 mmHg Heart Rhythm: Sinus Rhythm Technical Quality: Poor Exam Date: 01/12/2023 11:59 AM Exam Location: [facility] Patient Status: Inpatient Admit Date: 01/10/2023 Staff Ordering Physician: Jocelin Guerrero MD Tobacco Prizer: Rustam Solares RDCS Attending Provider: Curly Corea MD Exam Type: CA echo dop color flow w con Study Info Indications - h/o heart failure Complete two-dimensional, color flow and Doppler transthoracic echocardiogram is performed with contrast to opacify the left ventricle and to improve the deliniation of the left ventricle endocardial borders. Reason for Poor Study: poor echocardiographic windows Summary 1. Normal left ventricular size with mild concentric hypertrophy. Good systolic function of all segments with an ejection fraction 60-65%. Grade 2 diastolic dysfunction is present. 2. No significant valve disease. 3. Left atrial chamber dimension is moderately enlarged. 4. Moderate pulmonary hypertension, estimated pulmonary arterial systolic pressure is 49 mmHg. 5. Normal sinus rhythm. Left Ventricle Left ventricular chamber dimension is normal. Left ventricular systolic function is normal, estimated at 60-65%. There is mildly increased left ventricular wall thickness. Left ventricular septal wall motion is normal. The left ventricular diastolic function is grade II diastolic dysfunction. Right Ventricle Right ventricular chamber dimension is normal. Right ventricular systolic function is normal. Left Atria Left atrial chamber dimension is moderately enlarged. Right Atria Right atrial chamber dimension is normal. Aortic Valve The aortic valve is trileaflet. There is no aortic valve sclerosis. There is no aortic valve stenosis. There is no aortic valve regurgitation. Pulmonic Valve The pulmonic valve is normal. There is no pulmonic valve stenosis. There is no pulmonic regurgitation. Mitral Valve The mitral valve has thickened leaflets. There is no mitral valve stenosis. There is no mitral valve regurgitation. Tricuspid Valve The tricuspid valve leaflets are normal. There is no significant tricuspid valve stenosis. There is trace tricuspid valve regurgitation. Moderate pulmonary hypertension, estimated pulmonary arterial systolic pressure is 49 mmHg. Pericardium/Pleural The pericardium appears normal. There is no pericardial effusion. Inferior Vena Cava Normal inferior vena cava with >50% collapse upon inspiration consistent with Empty right atrial pressure, 10 mmHg. Aorta The aortic root size at the sinus of Valsalva is normal. The prox ascending aorta size is normal. The abdominal aorta size is not well visualized. Left Ventricular Outflow Tract Name Value Normal LVOT 2D LVOT Diameter 1.99 cm LVOT Doppler LVOT Peak Gradient 3 mmHg LVOT Mean Gradient 2 mmHg LVOT VTI 21.95 cm LVOT VTI/AV VTI Ratio 0.56 LVOT Stroke Volume 68.53 ml LVOT CO
[2023-01-12] MEDS: ALBUTEROL SULFATE NEB 2.5 MG/3 ML INH INHALATION ×4 (02:02→19:57)
[2023-01-12 07:06] LABS: Basophils Percent Auto 0.1 % (0.2-1.2); Hematocrit 48.3 % (37.0-47.0); Hemoglobin 15.1 g/dL (12.0-15.0); Immature Granulocyte Absolute 0.06 K/mm3 (0.00-0.031); Immature Granulocyte Percent A 0.4 % (0-0.5); Lymphocytes Percent Auto 7.3 % (18.3-44.2); Mean Corpuscular HGB Conc 31.3 g/dl (32-36); Mean Corpuscular Volume 95.8 fl (80-100); Mean Platelet Volume 9.1 fl (7.4-10.4); Monocytes Absolute Auto 0.8 K/mm3 (0.1-0.6); Monocytes Percent Auto 5.1 % (2.6-8.5); Neutrophils Percent Auto 87.1 % (45.5-73.1); Platelet Count Result 160 k/mm3 (150-375); Red Blood Count 5.04 M/mm3 (4.2-5.4); Red Cell Distribution Width 13.2 % (11.5-14.5)
[2023-01-12 07:19] LABS: Alanine Aminotransferase 22 U/L (6-35); Albumin Level 3.9 g/dL (3.5-5.1); Alkaline Phosphatase 68 U/L (38-126); Anion Gap 4 mmol/L (8-16); Aspartate Amino Transferase 24 U/L (14-36); Bilirubin,Total 0.6 mg/dL (0.2-1.3); Blood Urea Nitrogen 34 mg/dL (7-17); Calcium 8.8 mg/dL (8.4-10.2); Carbon Dioxide 34 mmol/L (22-30); Chloride 101 mmol/L (98-107); Estimated CRCL calculation 44 ml/min; Estimated Glomerular Filt Rate 54; Glucose 101 mg/dL (65-110); Magnesium 2.7 mg/dL (1.6-2.3); Potassium 4.2 mmol/L (3.4-5.0); Sodium 139 mmol/L (137-145)
[2023-01-12 08:22] LABS: Glucose Point of Care 93 mg/dl (65-105)
[2023-01-12] MEDS: amLODIPine BESYLATE 5 MG TABLET BY MOUTH (09:02)
[2023-01-12] MEDS: carvediloL 6.25 MG TABLET PO ×2 (09:03→21:11)
[2023-01-12] MEDS: FUROSEMIDE 20 MG TABLET PO (09:03)
[2023-01-12] MEDS: ENOXAPARIN 40 MG/0.4 ML SYRINGE SUB-Q (09:03)
[2023-01-12] MEDS: guaiFENesin 12 HR 600 MG TABCR PO ×2 (09:03→21:11)
[2023-01-12] MEDS: PANTOPRAZOLE 40 MG TABLET PO (09:03)
[2023-01-12] MEDS: VALSARTAN 160 MG TABLET PO (09:04)
--- NOTE | 2023-01-12 10:19 | PM.IMPN ---
Progress Note: A&P Assessment and Plan (1) Sepsis: Qualifiers: Sepsis type: sepsis due to unspecified organism Sepsis acute organ dysfunction status: without acute organ dysfunction Qualified Code(s): A41.9 - Sepsis, unspecified organism Code(s): A41.9 - Sepsis, unspecified organism Status: Acute (2) Community acquired pneumonia: Qualifiers: Laterality: right Lung location: middle lobe of lung Qualified Code(s): J18.9 - Pneumonia, unspecified organism Code(s): J18.9 - Pneumonia, unspecified organism Status: Acute (3) Tobacco dependence: Code(s): F17.200 - Nicotine dependence, unspecified, uncomplicated Status: Acute (4) Right upper lobe pneumonia: Qualifiers: Pneumonia type: due to unspecified organism Qualified Code(s): J18.9 - Pneumonia, unspecified organism Code(s): J18.9 - Pneumonia, unspecified organism Status: Acute (5) Combined systolic and diastolic congestive heart failure: Qualifiers: Heart failure chronicity: chronic Qualified Code(s): I50.42 - Chronic combined systolic (congestive) and diastolic (congestive) heart failure Code(s): I50.40 - Unspecified combined systolic (congestive) and diastolic (congestive) heart failure Status: Acute Plan 77-year-old female smoker with chronic obstructive pulmonary disease, hypertension, hyperlipidemia, combined systolic and diastolic congestive heart failure, and history of DVT presented to the emergency department from home for evaluation of shortness of breath and right back pain 1)Acute Resp failure+ Sepsis+H/o COPD: c/w O2 support Will need Six min walk prior to discharge C/w Azithromycin+Ceftriaxone Leucocytosis improving Tobacco cessation counseling c/w Bronchodilators 2)H/o Combined Systolic+Diastolic HF: c/w Lasix Await echo, last echo few years ago Also obtain USG abdomen to r/o ascites 2/2 CHF as patient c/o increasing abdominal girth 3)HTN:c/w norvasc, coreg, Valsartan 4)DVT ppx: Lovenox 5)Code:Full 6)PT/OT 7)Dispo:pending improvement Time Spent With Patient Time with patient: 25 - 35 minutes Subjective Date/time seen: 01/12/23 10:19 Interval history: Feeling better, SOB improving slowly, on 1L NC today C/o slow distension of abdomen Review of Systems Review of Systems: All systems reviewed & are unremarkable except as noted in HPI and below Exam Narrative: General: well-nourished, laying in bed, comfortable Neuro: awake, alert and oriented x4, speech clear, no focal neuro deficits noted HEENT: normocephalic, atraumatic, EOMI, sclerae anicteric, moist oral mucosa Respiratory: Clear/diminished to auscultation bilaterally without crackles, rhonchi or wheezes, nonlabored breathing Cardio: regular rate, regular rhythm with S1-S2 Abdomen: slightly distended, normoactive bowel sounds, soft, nontender to palpation Extremities: no edema, erythema, or tenderness to palpation, DP pulses 2+ bilaterally Skin: no rashes or lesions, warm and dry Psych: appropriate mood and affect, judgment and insight intact Objective Data Vital Signs Vital Signs: Vital Signs - 24 hr 01/11/23 13:23 01/11/23 13:30 01/11/23 14:46 Temperature 97.1 F L Pulse Rate 77 75 73 Respiratory Rate 20 20 18 Blood Pressure 123/69 Pulse Oximetry 96 Oxygen Delivery Oxygen Flow Rate 01/11/23 12:00 01/11/23 16:00 01/11/23 19:50 Temperature Pulse Rate 96 77 80 Respiratory Rate 20 Blood Pressure Pulse Oximetry Oxygen Delivery Oxygen Flow Rate 01/11/23 19:53 01/11/23 19:56 01/11/23 20:09 Temperature Pulse Rate 80 76 82 Respiratory Rate 20 20 Blood Pressure Pulse Oximetry 94 Oxygen Delivery Nasal Cannula Oxygen Flow Rate 1 01/11/23 20:29 01/11/23 20:00 01/11/23 20:00 Temperature 98.8 F Pulse Rate 77 77 Respiratory Rate 17 Blood Pressure 144/65 H Pulse Oximetry 96 96 Oxygen
[2023-01-12] MEDS: PERFLUTREN LIPID MICROSPHERES 1.5 ML VIAL DILUTED TO 10 ML TOTAL VOLUME IV PUSH (12:15)
[2023-01-12] MEDS: AZITHROMYCIN 500 MG/NS 250 ML 500 MG/250 ML BAG 125 MG IVPB (15:31)
[2023-01-12] MEDS: ATORVASTATIN 40 MG TABLET 80 MG PO (21:11)
[2023-01-13] VITALS (23 sets, daily range): BP systolic 135–151; BP diastolic 60–86; PULSE 59–76; RESP 18–19; TEMP 36.3–36.6; O2SAT 85–96
[2023-01-13] MEDS: ALBUTEROL SULFATE NEB 2.5 MG/3 ML INH INHALATION ×4 (02:33→21:25)
[2023-01-13 05:36] LABS: Basophils Percent Auto 0.2 % (0.2-1.2); Eosinophils Absolute Auto 0.1 K/mm3 (0-0.3); Eosinophils Percent Auto 0.9 % (0-4.4); Hematocrit 48.1 % (37.0-47.0); Hemoglobin 14.9 g/dL (12.0-15.0); Immature Granulocyte Absolute 0.04 K/mm3 (0.00-0.031); Immature Granulocyte Percent A 0.5 % (0-0.5); Mean Corpuscular Hemoglobin 30.1 pg (26-34); Mean Corpuscular Volume 97.2 fl (80-100); Mean Platelet Volume 9.5 fl (7.4-10.4); Monocytes Absolute Auto 0.6 K/mm3 (0.1-0.6); Monocytes Percent Auto 6.9 % (2.6-8.5); Neutrophils Absolute Auto 6.6 K/mm3 (1.3-6.7); Neutrophils Percent Auto 75.5 % (45.5-73.1); Platelet Count Result 160 k/mm3 (150-375); Red Blood Count 4.95 M/mm3 (4.2-5.4); Red Cell Distribution Width 13.2 % (11.5-14.5); White Blood Count 8.8 K/mm3 (4.5-10.0)
[2023-01-13 05:49] LABS: Anion Gap 5 mmol/L (8-16); Blood Urea Nitrogen 30 mg/dL (7-17); Calcium 8.8 mg/dL (8.4-10.2); Carbon Dioxide 34 mmol/L (22-30); Chloride 101 mmol/L (98-107); Estimated CRCL calculation 44 ml/min; Estimated Glomerular Filt Rate 54; Glucose 85 mg/dL (65-110); Potassium 4.7 mmol/L (3.4-5.0); Sodium 140 mmol/L (137-145)
[2023-01-13] MEDS: carvediloL 6.25 MG TABLET PO ×2 (08:47→20:47)
[2023-01-13] MEDS: VALSARTAN 160 MG TABLET PO (08:48)
[2023-01-13] MEDS: guaiFENesin 12 HR 600 MG TABCR PO ×2 (08:48→20:47)
[2023-01-13] MEDS: PANTOPRAZOLE 40 MG TABLET PO (08:48)
[2023-01-13] MEDS: FUROSEMIDE 20 MG TABLET PO (08:48)
[2023-01-13] MEDS: ENOXAPARIN 40 MG/0.4 ML SYRINGE SUB-Q (08:48)
[2023-01-13] MEDS: amLODIPine BESYLATE 5 MG TABLET 10 MG BY MOUTH (08:52)
[2023-01-13] MEDS: ERGOCALCIFEROL 50,000 UNITS CAPSULE 50000 UNITS PO (08:52)
--- NOTE | 2023-01-13 11:08 | PM.IMPN ---
Progress Note: A&P Assessment and Plan (1) Sepsis: Qualifiers: Sepsis type: sepsis due to unspecified organism Sepsis acute organ dysfunction status: without acute organ dysfunction Qualified Code(s): A41.9 - Sepsis, unspecified organism Code(s): A41.9 - Sepsis, unspecified organism Status: Acute (2) Community acquired pneumonia: Qualifiers: Laterality: right Lung location: middle lobe of lung Qualified Code(s): J18.9 - Pneumonia, unspecified organism Code(s): J18.9 - Pneumonia, unspecified organism Status: Acute (3) Tobacco dependence: Code(s): F17.200 - Nicotine dependence, unspecified, uncomplicated Status: Acute (4) Right upper lobe pneumonia: Qualifiers: Pneumonia type: due to unspecified organism Qualified Code(s): J18.9 - Pneumonia, unspecified organism Code(s): J18.9 - Pneumonia, unspecified organism Status: Acute (5) Combined systolic and diastolic congestive heart failure: Qualifiers: Heart failure chronicity: chronic Qualified Code(s): I50.42 - Chronic combined systolic (congestive) and diastolic (congestive) heart failure Code(s): I50.40 - Unspecified combined systolic (congestive) and diastolic (congestive) heart failure Status: Acute (6) Pulmonary hypertension: Code(s): I27.20 - Pulmonary hypertension, unspecified Status: Acute Plan 77-year-old female smoker with chronic obstructive pulmonary disease, hypertension, hyperlipidemia, combined systolic and diastolic congestive heart failure, and history of DVT presented to the emergency department from home for evaluation of shortness of breath and right back pain 1)Acute Resp failure+ Sepsis+H/o COPD: c/w O2 support Will need Six min walk prior to discharge C/w Azithromycin+Ceftriaxone Leucocytosis resolved Tobacco cessation counseling c/w Bronchodilators noted to have pulmonary htn, contributor to her symptoms, will get pulmonary consult 2)H/o Combined Systolic+Diastolic HF: c/w Lasix echo shows normal EF with grade 2 diastolic dysfunction and pulmonary HTN USG abdomen negative for ascites 3)HTN:c/w norvasc(dose increased), coreg, Valsartan 4)DVT ppx: Lovenox 5)Code:Full 6)PT/OT 7)Dispo:pending improvement Time Spent With Patient Time with patient: 25 - 35 minutes Subjective Date/time seen: 01/13/23 11:08 Interval history: still on 1 L of O2 support, c/o SOB Review of Systems Review of Systems: All systems reviewed & are unremarkable except as noted in HPI and below Exam Narrative: General: well-nourished, laying in bed, comfortable Neuro: awake, alert and oriented x4, speech clear, no focal neuro deficits noted HEENT: normocephalic, atraumatic, EOMI, sclerae anicteric, moist oral mucosa Respiratory: Clear/diminished to auscultation bilaterally without crackles, rhonchi or wheezes, nonlabored breathing Cardio: regular rate, regular rhythm with S1-S2 Abdomen: slightly distended, normoactive bowel sounds, soft, nontender to palpation Extremities: no edema, erythema, or tenderness to palpation, DP pulses 2+ bilaterally Skin: no rashes or lesions, warm and dry Psych: appropriate mood and affect, judgment and insight intact Objective Data Vital Signs Vital Signs: Vital Signs - 24 hr 01/12/23 13:17 01/12/23 13:28 01/12/23 12:00 Temperature Pulse Rate 68 72 72 Respiratory Rate 18 18 Blood Pressure Pulse Oximetry Oxygen Delivery Oxygen Flow Rate 01/12/23 15:05 01/12/23 16:00 01/12/23 14:00 Temperature 97.6 F Pulse Rate 83 79 Respiratory Rate 16 Blood Pressure 114/70 Pulse Oximetry 98 Oxygen Delivery Nasal Cannula Oxygen Flow Rate 1 01/12/23 19:58 01/12/23 19:59 01/12/23 20:38 Temperature 97.9 F Pulse Rate 71 77 Respiratory Rate 18 18 Blood Pressure 158/67 H Pulse Oximetry 96 90 Oxygen Delivery Nasal Cannula Oxygen Flow Rate 1
--- NOTE | 2023-01-13 12:15 | PCPTNOTE ---
On 01/13/23, the student, SAGRARIO Geiger, provided care and completed [facility] documentation on this patient. I have reviewed the student's documentation and agree with the findings.
--- NOTE | 2023-01-13 14:58 | HOMEO2EVAL ---
Evaluation was performed at [facility] Home Oxygen Evaluation RC: Home Oxygen (O2) Evaluation Start: 01/13/23 12:31 Freq: ONCE Status: Active Protocol: RPE Activity Type Activity Date Activity User E-sign Co-sign Detail Recorded Client Recorded Date Recorded By Document 01/13/23 14:00 PK [email or web address] 01/13/23 14:58 PK Document 01/13/23 14:05 PK [email or web address] 01/13/23 14:58 PK Document 01/13/23 14:10 PK [email or web address] 01/13/23 14:58 PK Document 01/13/23 14:15 PK [email or web address] 01/13/23 14:58 PK Document 01/13/23 14:20 PK [email or web address] 01/13/23 14:58 [facility] Document 01/13/23 14:35 PK [email or web address] 01/13/23 14:58 PK 01/13/23 01/13/23 01/13/23 14:00 14:05 14:10 Home O2 Evaluation [Oxygen] -Test Phase Resting Exercise Exercise -Oxygen Delivery Room Air Room Air Nasal Cannula -Oxygen Flow Rate (L/min) 1 [Pulse Oximetry] -Pulse Oximetry (90-100 %) 94 85 L 86 L [Pulse Rate] -Pulse Rate (60-100 beats/min) 72 76 73 [Charges] -Treatment Charges O2 Evaluation - Inpatient 01/13/23 01/13/23 01/13/23 14:15 14:20 14:35 Home O2 Evaluation [Oxygen] -Test Phase Exercise Exercise Resting -Oxygen Delivery Nasal Cannula Nasal Cannula Room Air -Oxygen Flow Rate (L/min) 2 3 [Pulse Oximetry] -Pulse Oximetry (90-100 %) 87 L 92 93 [Pulse Rate] -Pulse Rate (60-100 beats/min) 73 72 70 [Charges] -Treatment Charges
--- NOTE | 2023-01-13 15:00 | PCRCNOTE ---
Home O2 eval complete. Patient requires room air with rest and 3lpm with activity. RN notified. [facility] called . Tank in room for discharge.
[2023-01-13] MEDS: AZITHROMYCIN 500 MG/NS 250 ML 500 MG/250 ML BAG 125 MG IVPB (15:18)
[2023-01-13] MEDS: ATORVASTATIN 40 MG TABLET 80 MG PO (20:47)
[2023-01-14] VITALS (14 sets, daily range): BP systolic 145–170; BP diastolic 69–77; PULSE 56–76; RESP 18–20; TEMP 36.2–36.4; O2SAT 86–96
[2023-01-14 05:49] LABS: Anion Gap 3 mmol/L (8-16); Blood Urea Nitrogen 24 mg/dL (7-17); Calcium 8.2 mg/dL (8.4-10.2); Carbon Dioxide 34 mmol/L (22-30); Chloride 101 mmol/L (98-107); Estimated CRCL calculation 49 ml/min; Estimated Glomerular Filt Rate > 60; Glucose 103 mg/dL (65-110); Potassium 4.5 mmol/L (3.4-5.0); Sodium 138 mmol/L (137-145)
[2023-01-14 05:51] LABS: Basophils Percent Auto 0.8 % (0.2-1.2); Eosinophils Absolute Auto 0.2 K/mm3 (0-0.3); Eosinophils Percent Auto 3.9 % (0-4.4); Hematocrit 44.7 % (37.0-47.0); Immature Granulocyte Absolute 0.03 K/mm3 (0.00-0.031); Immature Granulocyte Percent A 0.6 % (0-0.5); Lymphocytes Absolute Auto 1.18 K/mm3 (0.9-3.2); Lymphocytes Percent Auto 24.3 % (18.3-44.2); Mean Corpuscular HGB Conc 31.3 g/dl (32-36); Mean Corpuscular Hemoglobin 30.1 pg (26-34); Mean Corpuscular Volume 96.1 fl (80-100); Mean Platelet Volume 9.5 fl (7.4-10.4); Monocytes Absolute Auto 0.4 K/mm3 (0.1-0.6); Monocytes Percent Auto 8.6 % (2.6-8.5); Neutrophils Percent Auto 61.8 % (45.5-73.1); Platelet Count Result 163 k/mm3 (150-375); Red Blood Count 4.65 M/mm3 (4.2-5.4); Red Cell Distribution Width 13.1 % (11.5-14.5); White Blood Count 4.9 K/mm3 (4.5-10.0)
[2023-01-14] MEDS: ALBUTEROL SULFATE NEB 2.5 MG/3 ML INH INHALATION ×3 (07:22→20:34)
[2023-01-14] MEDS: guaiFENesin 12 HR 600 MG TABCR PO ×2 (08:31→20:48)
[2023-01-14] MEDS: FUROSEMIDE 20 MG TABLET PO (08:31)
[2023-01-14] MEDS: VALSARTAN 160 MG TABLET PO (08:31)
[2023-01-14] MEDS: carvediloL 6.25 MG TABLET PO ×2 (08:32→20:48)
--- NOTE | 2023-01-14 08:32 | PM.IMPN ---
Progress Note: A&P Assessment and Plan (1) Sepsis: Qualifiers: Sepsis acute organ dysfunction status: without acute organ dysfunction Sepsis type: sepsis due to unspecified organism Qualified Code(s): A41.9 - Sepsis, unspecified organism Code(s): A41.9 - Sepsis, unspecified organism Status: Acute (2) Community acquired pneumonia: Qualifiers: Laterality: right Lung location: middle lobe of lung Qualified Code(s): J18.9 - Pneumonia, unspecified organism Code(s): J18.9 - Pneumonia, unspecified organism Status: Acute (3) Tobacco dependence: Code(s): F17.200 - Nicotine dependence, unspecified, uncomplicated Status: Acute (4) Right upper lobe pneumonia: Qualifiers: Pneumonia type: due to unspecified organism Qualified Code(s): J18.9 - Pneumonia, unspecified organism Code(s): J18.9 - Pneumonia, unspecified organism Status: Acute (5) Combined systolic and diastolic congestive heart failure: Qualifiers: Heart failure chronicity: chronic Qualified Code(s): I50.42 - Chronic combined systolic (congestive) and diastolic (congestive) heart failure Code(s): I50.40 - Unspecified combined systolic (congestive) and diastolic (congestive) heart failure Status: Acute (6) Pulmonary hypertension: Code(s): I27.20 - Pulmonary hypertension, unspecified Status: Acute Plan 77-year-old female smoker with chronic obstructive pulmonary disease, hypertension, hyperlipidemia, combined systolic and diastolic congestive heart failure, and history of DVT presented to the emergency department from home for evaluation of shortness of breath and right back pain 1)Acute Resp failure+ Sepsis+H/o COPD: c/w O2 support Home O2 eval ordered and pending C/w Azithromycin+Ceftriaxone started 01/10 Tobacco cessation counseling c/w Bronchodilators noted to have pulmonary htn, contributor to her symptoms 2)H/o Combined Systolic+Diastolic HF: c/w Lasix, echo shows normal EF with grade 2 diastolic dysfunction and pulmonary HTN USG abdomen negative for ascites 3)HTN:c/w norvasc(dose increased), coreg, Valsartan 4)DVT ppx: Lovenox 5)Code:Full 6)PT/OT 7)Dispo:pending improvement Subjective Date/time seen: 01/14/23 08:32 Interval history: No overnight events noted. No chest pain or shortness of breath. No nausea, vomiting or diarrhea. No fevers or chills. Still on O2. Feeling much better than yesterday. Review of Systems Review of Systems: 12 point review of systems was assessed and was negative except as noted in the HPI Exam Narrative: General: No acute distress, alert and oriented per baseline HEENT: Atraumatic, normocephalic, mucous membranes moist CV: Regular rate and rhythm, S1, S2 Lungs: Clear to auscultation bilaterally, diminished at bases, no wheeze Abdomen: Soft, nontender, nondistended Extremities: Normal to inspection Skin: No rashes noted, no lesions or wounds seen Psych: Euthymic, normal affect Objective Data Vital Signs Vital Signs: Vital Signs - 24 hr 01/13/23 08:47 01/13/23 09:40 01/13/23 09:46 Temperature Pulse Rate 74 72 Respiratory Rate 18 Blood Pressure Pulse Oximetry 94 Oxygen Delivery Nasal Cannula Oxygen Flow Rate 1 01/13/23 09:49 01/13/23 10:05 01/13/23 14:00 Temperature 97.6 F Pulse Rate 69 68 Respiratory Rate 18 19 Blood Pressure 135/86 Pulse Oximetry 96 Oxygen Delivery Nasal Cannula Oxygen Flow Rate 1 01/13/23 14:00 01/13/23 14:05 01/13/23 14:10 Temperature Pulse Rate 72 76 73 Respiratory Rate Blood Pressure Pulse Oximetry 94 85 L 86 L Oxygen Delivery Room Air Room Air Nasal Cannula Oxygen Flow Rate 1 01/13/23 14:15 01/13/23 14:20 01/13/23 14:35 Temperature Pulse Rate 73 72 70 Respiratory Rate Blood Pressure Pulse Oximetry 87 L 92 93 Oxygen Delivery Nasal Cannula Nasal Cannula Room
[2023-01-14] MEDS: ENOXAPARIN 40 MG/0.4 ML SYRINGE SUB-Q (08:37)
[2023-01-14] MEDS: amLODIPine BESYLATE 5 MG TABLET 10 MG BY MOUTH (09:06)
[2023-01-14] MEDS: PANTOPRAZOLE 40 MG TABLET PO (09:06)
[2023-01-14] MEDS: AZITHROMYCIN 250 MG TABLET 500 MG PO (14:01)
[2023-01-14] MEDS: AMOXICILLIN/CLAVULANATE K 875-125 MG TAB 1 TABLET PO (16:29)
[2023-01-14] MEDS: ATORVASTATIN 40 MG TABLET 80 MG PO (20:48)
[2023-01-15] VITALS (10 sets, daily range): BP systolic 151–177; BP diastolic 67–69; PULSE 62–74; RESP 16–20; TEMP 35.8–36.6; O2SAT 91–99
[2023-01-15] MEDS: ALBUTEROL SULFATE NEB 2.5 MG/3 ML INH INHALATION ×3 (02:37→13:54)
[2023-01-15 07:11] LABS: Basophils Percent Auto 0.8 % (0.2-1.2); Eosinophils Absolute Auto 0.3 K/mm3 (0-0.3); Eosinophils Percent Auto 6.7 % (0-4.4); Hematocrit 47.1 % (37.0-47.0); Hemoglobin 14.8 g/dL (12.0-15.0); Immature Granulocyte Absolute 0.03 K/mm3 (0.00-0.031); Immature Granulocyte Percent A 0.6 % (0-0.5); Lymphocytes Absolute Auto 1.14 K/mm3 (0.9-3.2); Lymphocytes Percent Auto 22.4 % (18.3-44.2); Mean Corpuscular HGB Conc 31.4 g/dl (32-36); Mean Corpuscular Hemoglobin 29.9 pg (26-34); Mean Corpuscular Volume 95.2 fl (80-100); Mean Platelet Volume 9.3 fl (7.4-10.4); Monocytes Absolute Auto 0.5 K/mm3 (0.1-0.6); Monocytes Percent Auto 8.8 % (2.6-8.5); Neutrophils Absolute Auto 3.1 K/mm3 (1.3-6.7); Neutrophils Percent Auto 60.7 % (45.5-73.1); Platelet Count Result 176 k/mm3 (150-375); Red Blood Count 4.95 M/mm3 (4.2-5.4); Red Cell Distribution Width 12.8 % (11.5-14.5); White Blood Count 5.1 K/mm3 (4.5-10.0)
[2023-01-15 07:29] LABS: Alanine Aminotransferase 25 U/L (6-35); Albumin Level 3.8 g/dL (3.5-5.1); Alkaline Phosphatase 65 U/L (38-126); Anion Gap 3 mmol/L (8-16); Aspartate Amino Transferase 26 U/L (14-36); Bilirubin,Total 0.7 mg/dL (0.2-1.3); Blood Urea Nitrogen 21 mg/dL (7-17); Carbon Dioxide 35 mmol/L (22-30); Chloride 98 mmol/L (98-107); Estimated CRCL calculation 43 ml/min; Estimated Glomerular Filt Rate > 60; Glucose 111 mg/dL (65-110); Potassium 4.3 mmol/L (3.4-5.0); Sodium 136 mmol/L (137-145)
[2023-01-15] MEDS: ENOXAPARIN 40 MG/0.4 ML SYRINGE SUB-Q (08:25)
[2023-01-15] MEDS: AMOXICILLIN/CLAVULANATE K 875-125 MG TAB 1 TABLET PO (08:26)
[2023-01-15] MEDS: guaiFENesin 12 HR 600 MG TABCR PO (08:26)
[2023-01-15] MEDS: VALSARTAN 160 MG TABLET PO (08:26)
[2023-01-15] MEDS: PANTOPRAZOLE 40 MG TABLET PO (08:26)
[2023-01-15] MEDS: carvediloL 6.25 MG TABLET PO (08:26)
[2023-01-15] MEDS: FUROSEMIDE 20 MG TABLET PO (08:26)
[2023-01-15] MEDS: amLODIPine BESYLATE 5 MG TABLET 10 MG BY MOUTH (08:27)
--- NOTE | 2023-01-15 10:04 | PM.DS ---
DS: Admitting Diagnosis Discharge Date 01/15/23 Admitting Diagnosis Sepsis 2/2 Pneumonia COPD Acute Hypoxic Resp Failure DS: Discharge Diagnosis Discharge Diagnosis (1) Pulmonary hypertension: Code(s): I27.20 - Pulmonary hypertension, unspecified Status: Acute (2) Sepsis: Qualifiers: Sepsis type: sepsis due to unspecified organism Sepsis acute organ dysfunction status: without acute organ dysfunction Qualified Code(s): A41.9 - Sepsis, unspecified organism Code(s): A41.9 - Sepsis, unspecified organism Status: Acute (3) Community acquired pneumonia: Qualifiers: Laterality: right Lung location: middle lobe of lung Qualified Code(s): J18.9 - Pneumonia, unspecified organism Code(s): J18.9 - Pneumonia, unspecified organism Status: Acute (4) Acute exacerbation of chronic obstructive pulmonary disease: Code(s): J44.1 - Chronic obstructive pulmonary disease with (acute) exacerbation Status: Acute (5) Acute respiratory failure with hypoxia: Code(s): J96.01 - Acute respiratory failure with hypoxia Status: Acute DS: Summary Hospital Course Reason for hospitalization: SOB Sepsis Hospital Course: 77-year-old female smoker with chronic obstructive pulmonary disease, hypertension, hyperlipidemia, combined systolic and diastolic congestive heart failure, and history of DVT presented to the emergency department? from home for evaluation of shortness of breath and right back pain. Was found to have Pneumonia, treated with azithromycin, ceftriaxone while in hospital, discharged on Augmentin. Is a life long smoker, continues to smoke, smoking cessation counseling was done. Pulmonary was consulted, advised for outpatient follow. Was discharged on bronchodilators. Qualified for O2 support via six min walk prior to discharge. Discharged home in stable condition. Time spent discussing smoking cessation with patient: more than 10 minutes Status at Discharge Functional status at discharge: independent ambulation Overall status at discharge: patient is progressing back to baseline Time Spent with Patient Time attestation: Total time spent providing and/or coordinating discharge services: Time spent: Greater than 30 minutes Exam Narrative: General: well-nourished, laying in bed, comfortable Neuro: awake, alert and oriented x4, speech clear, no focal neuro deficits noted HEENT: normocephalic, atraumatic, EOMI, sclerae anicteric, moist oral mucosa Respiratory: Clear/diminished to auscultation bilaterally without crackles, rhonchi or wheezes, nonlabored breathing Cardio: regular rate, regular rhythm with S1-S2 Abdomen: slightly distended, normoactive bowel sounds, soft, nontender to palpation Extremities: no edema, erythema, or tenderness to palpation, DP pulses 2+ bilaterally Skin: no rashes or lesions, warm and dry Psych: appropriate mood and affect, judgment and insight intact DS: Data Data Completed and Pending Labs on day of discharge: Labs from last 24 hours 01/15/23 06:15 WBC 5.1 RBC 4.95 Hgb 14.8 Hct 47.1 H MCV 95.2 MCH 29.9 MCHC 31.4 L RDW 12.8 Plt Count 176 MPV 9.3 Immature Gran % (Auto) 0.6 H Neut % (Auto) 60.7 Lymph % (Auto) 22.4 [place] % (Auto) 8.8 H Eos % (Auto) 6.7 H Baso % (Auto) 0.8 Lymph # (Auto) 1.14 [place] # (Auto) 0.5 Eos # (Auto) 0.3 Baso # (Auto) 0.0 Abs Immat Gran (auto) 0.03 Absolute Neuts (auto) 3.1 Absolute Nucleated RBC 0.0 Nucleated RBC % 0.0 Sodium 136 L Potassium 4.3 Chloride 98 Carbon Dioxide 35 H Anion Gap 3 L BUN 21 H Creatinine 0.90 Estim Creat Clear Calc 43 Estimated GFR > 60 Glucose 111 H Calcium 9.0 Total Bilirubin 0.7 AST 26 ALT 25 Alkaline Phosphatase 65 Total Protein 7.0 Albumin 3.8 Preliminary micro results at discharge 01/10/23 15:02 Blood Culture - Preliminary Blood 01/10/23 15:02 Blood Culture - Preliminary Blood D
[2023-01-15 13:14] LABS: Mycoplasma IgM Antibody Titer 48 U/mL (<770)
== END 2023-01-15 15:45 | disposition home or self-care (01) | DRG 193 ==
LOC: ANHED 14:19 → ANH2MED 17:17
PROVIDERS: Nurse Practitioner; Physician Assistant; Student in an Organized Health Care Education/Training Program; Admitting Provider Internal Medicine; Emergency Provider Preventive Medicine Aerospace Medicine; PCP Nurse Practitioner; Visit Provider Internal Medicine
DX: J18.9 Pneumonia, unspecified organism (principal); J96.01 Acute respiratory failure with hypoxia; J44.0 Chronic obstructive pulmonary disease with (acute) lower respiratory infection; J44.1 Chronic obstructive pulmonary disease with (acute) exacerbation; I50.42 Chronic combined systolic (congestive) and diastolic (congestive) heart failure; I11.0 Hypertensive heart disease with heart failure; E78.5 Hyperlipidemia, unspecified; I25.10 Atherosclerotic heart disease of native coronary artery without angina pectoris; F17.210 Nicotine dependence, cigarettes, uncomplicated; D75.1 Secondary polycythemia; F41.9 Anxiety disorder, unspecified; Z86.718 Personal history of other venous thrombosis and embolism; Z85.51 Personal history of malignant neoplasm of bladder
CPT/HCPCS: 36415; 36600; 71045; 71046; 71275; 76705; 80048; 80053; 82375; 82805; 82948; 83050; 83735; 83880; 84484; 85025; 85610; 85730; 86738; 87040; 87070; 87205; 93005; 93970; 94618; 94640; 94762; 96365; 96367; 96375; 97161; 97165; 97530; 97535; 99285; A9270; C8929; J0456; J0696; J1650; J2270; J2930; J3475; Q9957; Q9967

== ENCOUNTER 2024-11-11 06:38 | Inpatient (IN) | payer MEDICARE, MEDICAID, SELFPAY ==
[2024-11-11] VITALS (29 sets, daily range): BP systolic 110–159; BP diastolic 46–84; PULSE 72–90; RESP 12–21; TEMP 36.4–36.8; O2SAT 92–100; BMI 28.7
--- NOTE | ~2024-11-11 | XR_ITS ---
XR surgery orthopedic Indication: ORIF right ankle TECHNIQUE: Fluoroscopy used during ORIF right ankle performed by [Chung Casillas MD] on 11/16. Fluoroscopy time is 45 seconds with 3 fluoroscopic images captured. FINDINGS: Correlate with procedure note. IMPRESSION: Fluoroscopy used during ORIF right ankle. Reviewed, dictated and finalized at location A.
--- NOTE | ~2024-11-11 | XR_ITS ---
XR ankle RT 2V 11/11/2024 09:21 Indication: This reduction right ankle fracture Procedure: 2 views right ankle performed in fiberglass cast Comparison: 11/11/2024 Findings: Improved alignment of bimalleolar fracture compared with prior study. Ankle mortise grossly intact. Talar dome is unremarkable. There are degenerative calcaneal enthesophyte. Impression: 1: Significantly improved alignment of bimalleolar fractures. Reviewed, dictated and finalized at location A. Impression: 1: Significantly improved alignment of bimalleolar fractures.
--- NOTE | ~2024-11-11 | XR_ITS ---
XR ankle RT 2V 11/11/2024 06:51 Indication: Status post fall. Deformity of the ankle. Procedure: 2 nonstandard views of the right ankle Comparison: No prior studies for comparison. Findings: There is a fracture of the posterior malleolus with dorsal dislocation of the talus with re spect to the tibia. There is also a likely lateral malleolar fracture of the fibula. Mild soft tissue swelling. Possible medial malleolar fracture. Impression: 1: Displaced fracture of the posterior malleolus with probable fracture of the lateral malleolus and possibly the medial malleolus. There is dorsal dislocation of the talus with respect to the tibia. Reviewed, dictated and finalized at location A. Impression: 1: Displaced fracture of the posterior malleolus with probable fracture of the lateral malleolus and possibly the medial malleolus. There is dorsal dislocatio n of the talus with respect to the tibia.
--- NOTE | ~2024-11-11 | CT_ITS ---
EXAMINATION: CT brain wo con DATE: 11/11/2024 09:50 INDICATION: Status post fall. TECHNIQUE: Computed tomography (CT) of the head was performed without intravenous contrast. The dose- length product was 605.33 mGy-cm. Automated exposure control and iterative reconstruction technique w ere employed. COMPARISON: None FINDINGS: Generalized atrophy. Small chronic left cerebellar infarctions. No ventriculomegaly or midl ine shift. There is intracranial atherosclerosis. Small mucous retention cyst right maxillary sinus. Mild mucosa l thickening left sphenoid sinus with mucous retention cysts. There is mucoperiosteal reaction of the left sphenoid sinus. Mastoids are pneumatized. There is intracranial atherosclerosis. No depressed s kull fractures. No acute infarction, hemorrhage, mass or mass effect. Midline sagittal images demonst rate a normal corpus callosum and craniovertebral junction. There are scattered mild periventricular and subcortical white matter changes, most likely related to small vessel ischemic disease (microangi opathy). IMPRESSION: 1. No acute intracranial abnormality. Reviewed, dictated and finalized at location A.
--- NOTE | ~2024-11-11 | XR_ITS ---
XR ankle RT 2V 11/11/2024 08:26 Indication: Post reduction right ankle fracture Procedure: 2 views right ankle performed and fiberglass cast Comparison: 11/11/2024 Findings: There are displaced bimalleolar fractures with medial subluxation of the talus with respect to the tibia. Improved alignment in the AP direction. Impression: 1: Displaced bimalleolar fractures with medial subluxation of the talus. Reviewed, dictated and finalized at location A. Impression: 1: Displaced bimalleolar fractures with medial subluxation of the talus.
--- NOTE | ~2024-11-11 | XR_ITS ---
EXAMINATION: XR chest 1V portable 11/11/2024 06:51 INDICATION: Status post fall. PROCEDURE: AP portable chest COMPARISON: 01/12/2023 FINDINGS: The lungs are clear. The cardiomediastinal silhouette is upper normal limits. There are n o pleural effusions. There is no pneumothorax suspected. IMPRESSION: 1: NO ACUTE CARDIOPULMONARY DISEASE. Reviewed, dictated and finalized at location A.
[2024-11-11] MEDS: ACETAMINOPHEN 500 MG TABLET 1000 MG PO (06:50)
--- OUTSIDE RECORDS SUMMARY | 2024-11-11 07:27 | XMS_ITS | Referral Summary ---
Author Organization [facility] [address] [facility] [address] Address [address] [place] [address] Care Team Providers Care Fugitive Detective Name Role Phone Cristiane Toth MD Primary Care Provider [phone]- [phone] Encounters Date Type Department Care Team Description 08/17/2024 2:30 PM FITTER TYPE BAR AND SEGMENT Office Visit [facility] Cardiology [address] [place] [address] Karina García NP Dilated cardiomyopathy (HCC) (Primary Dx); Chronic combined systolic and diastolic CHF (congestive heart failure) (HCC); Benign essential HTN; Bradycardia; Mixed hyperlipidemia from Last 3 Months Allergies No known active allergies Medications carvediloL (COREG) 12.5 mg tablet Take 1 tablet (12.5 mg total) by mouth 2 (two) times a day 07/01/2020 Active furosemide (LASIX) 20 mg tablet Take 1 tablet (20 mg total) by mouth daily 90 tablet 2 12/31/2020 Active calcium carbonate-vitam in D3 (CALTRATE 600 + D) 1500 mg (600 mg elemental) -400 units per tablet Take 1 tablet by mouth 09/23/2022 Active Combivent Respimat 20-100 mcg/actuation inhaler Inhale 1 puff 4 (four) times a day 01/18/2023 Active omeprazole (PriLOSEC) 20 mg capsule Take 1 capsule (20 mg total) by mouth daily 07/30/2023 Active albuterol HFA (PROVENTIL HFA,VENTOLIN HFA,PROAIR HFA) 90 mcg/actuation inhaler 2 puffs every 6 (six) hours as needed Active valsartan (DIOVAN) 320 mg tabletIndicatio ns:Benign essential HTN TAKE 1 TABLET(320 MG) BY MOUTH DAILY 90 tablet 3 02/15/2024 Active atorvastatin (LIPITOR) 80 mg tablet Take 1 tablet (80 mg total) by mouth daily 07/24/2024 Active alendronate (FOSAMAX) 70 mg tablet Take 1 tablet (70 mg total) by mouth every 7 days 05/24/2024 Active cholecalciferol (VITAMIN D-3) 2000 unit tablet Take 50 mcg by mouth daily Active amLODIPine (NORVASC) 10 mg tabletIndicatio ns:Benign essential HTN Take 0.5 tablets (5 mg total) by mouth daily 08/17/2024 Active Active Problems Problem Noted Date Diagnosed Date Idiopathic hypotension 08/24/2023 Mild dementia 08/24/2023 Chronic respiratory failure, unspecified whether with hypoxia or hypercapnia 08/24/2023 Centrilobular emphysema 08/24/2023 Irregular heart beat 10/12/2022 Memory loss 10/12/2022 History of DVT (deep vein thrombosis) 09/21/2020 Accelerated junctional rhythm 09/16/2020 Bradycardia 09/16/2020 Benign essential HTN 12/19/2019 Chronic combined systolic an d diastolic CHF (congestive heart failure) 12/19/2019 Dilated cardiomyopathy 12/19/2019 Mixed hyperlipidemia 12/19/2019 Former tobacco use 12/19/2019 Asymptomatic varicose veins 12/19/2019 Resolved Problems Problem Noted Date Diagnosed Date Resolved Date Deep vein thrombosis (DVT) d uring current hospitalization 12/19/2019 09/21/2020 Chronic anticoagulation 12/19/2019 04/0 10/2020 Social History Tobacco Use Types Packs/Day Years Used Date Smoking Tobacco: Former Cigarettes Q uit: 02/01/2023 Smokeless Tobacco: Never Tobacco Cessation:Counseling Given: Not Answered Alcohol Use Standard Drinks/Week Comments Not Currently 0 (1 standard drink = 0.6 oz pur e alcohol) Comments Unknown Sex and Gender Information Value Date Recorded Sex Assigned at Not on file Legal Sex Female 7:45 AM CDT Gender Identity Not on file Sexual Orientation Not on file Last Filed Vital Signs Vital Sign Reading Time Taken Comments Blood Pressure 162/80 08/17/2024 2:28 PM FITTER TYPE BAR AND SEGMENT Pulse 69 08/17/2024 2:28 PM FITTER TYPE BAR AND SEGMENT Temperature 36.3 C (97.3 F) 01/26/2020 11:14 AM CDT Respiratory Rate - - Oxygen Saturation 95% 08/17/2024 2:28 PM FITTER TYPE BAR AND SEGMENT Inhaled Oxygen Concentration - - Weight 75.8 kg (167 lb) 08/17/2024 2:28 PM FITTER TYPE BAR AND SEGMENT Height 167.6 cm (5' 6) 08/17/2024 2:28 PM FITTER TYPE BAR AND SEGMENT Body Mass Index 26.95 08/17/2024 2:28 PM FITTER TYPE BAR AND SEGMENT Plan of Treatment Not on file Insurance MEDICARE ADVANTAGE MEDICARE ADVANTAGE Care Teams Fugitive Detective Relationship Specialty Start Date End Date Cristiane Toth MD PCP - General Nurse Practitioner 03/27/21
--- OUTSIDE RECORDS SUMMARY | 2024-11-11 07:27 | XMS_ITS | Clinical Summary ---
Author Organization [facility] [address] Address [address] [place] [address] Care Team Providers Care Data Analytics Developer Name Role Phone Cristiane Toth MD Primary Care Provider +1- [phone] Allergies No known active allergies Medications carvediloL [...] 12/19/2019 09/21/2020 Chronic anticoagulation 12/19/2019 04/0 10/2020 Encounters Date Type Department Care Team Description 08/17/2024 2:30 PM EARLY CHILDHOOD SERVICES COORDINATOR Office Visit [facility] Cardiology [address] [facility] [address] [place] [address] Karina García NP Dilated cardiomyopathy (HCC) (Primary Dx); Chronic combined systolic and diastolic CHF (congestive heart failure) (HCC); Benign essential HTN; Bradycardia; Mixed hyperlipidemia from Last 3 Months Surgical History Surgery Date Site/Laterality Comments TONSILLECTOMY TUMOR EXCISION Medical History Medical History Date Comments Hypertension CHF (congestive heart failure) (HCC) Blood clot in vein Cancer (HCC) bladder Family History Medical History Relation Name Comments Heart disease Father Lung disease Father Hypertension Mother Relation Name Status Comments Father (Age 73) Mother (Age 69) Social History Tobacco Use Types Packs/Day Years [...] on file Sexual Orientation Not on file Obstetrics History Last Filed Vital Signs Vital Sign Reading Time Taken Comments Blood Pressure 162/80 08/17/2024 2:28 PM EARLY CHILDHOOD SERVICES COORDINATOR Pulse 69 08/17/2024 2:28 PM EARLY CHILDHOOD SERVICES COORDINATOR Temperature 36.3 C (97.3 F) 01/26/2020 11:14 AM CDT Respiratory Rate - - Oxygen Saturation 95% 08/17/2024 2:28 PM EARLY CHILDHOOD SERVICES COORDINATOR Inhaled Oxygen Concentration - - Weight 75.8 kg (167 lb) 08/17/2024 2:28 PM EARLY CHILDHOOD SERVICES COORDINATOR Height 167.6 cm (5' 6) 08/17/2024 2:28 PM EARLY CHILDHOOD SERVICES COORDINATOR Body Mass Index 26.95 08/17/2024 2:28 PM EARLY CHILDHOOD SERVICES COORDINATOR Plan of Treatment Health Maintenance Due Date Last Done Comments Depression Screening 1945 Fall Risk Assessment 1945 Hepatitis C Screening 1945 DTaP/Tdap/Td Vaccine (1 - Tdap) 1956 Hepatitis B Screening 11/02/1963 Pneumococcal vaccine 65+ (1 of 2 - PCV) 1964 Zoster Vaccine (1 of 2) 11/02/1995 Well Visit 65+ 2010 Osteoporosis Screening-Bone Density Scan 07/27/2024 07/27/2022 Influenza Vaccine (Season Ended) 2025 04/06/20 22 Breast Cancer Screening-Mammogram Discontinued [address]23 Insurance [address] [place] [id number] [facility] MEDICARE ADVANTAGE MEDICARE ADVANTAGE Care Teams Data Analytics Developer Relationship Specialty Start Date End Date Cristiane Toth MD PCP - General Nurse Practitioner 03/27/21
--- OUTSIDE RECORDS SUMMARY | 2024-11-11 07:28 | XMS_ITS | Encounter Summary ---
Author Organization [facility] Healthcare Address [address] [place] [address] Care Team Providers Care Fitter Armament Name Role Phone Cristinae Toth MD Primary Care Provider +- [phone] Encounter Details Date Type Department Care Team (Late st Contact Info) Description 12/06/2023 Orders Only [facility] [place] [facility] [address] [place] [id number] Scanning, Provider Social History Tobacco Use Types Packs/Day Years Used Date Smoking Tobacco: Former Cigarettes Q uit: 02/01/2023 Smokeless Tobacco: Never Alcohol Use Standard Drinks/Week Comments Not Currently 0 (1 standard drink = 0.6 oz pur e alcohol) Comments Unknown Sex and Gender Information Value Date Recorded Sex Assigned at Not on file Legal Sex Female 7:45 AM CDT Gender Identity Not on file Sexual Orientation Not on file documented as of this encounter Plan of Treatment Not on file documented as of this encounter Procedures Procedure Name Priority Date/Time Associated Diagnosis Comments SCAN - LABS 12/06/2023 documented in this encounter Results * SCAN - LABS (12/06/2023) us Provider Scanning Final Result documented in this encounter Visit Diagnoses Not on filedocumented in this encounter Care Teams Fitter Armament Relationship Specialty Start Date End Date Cristiane Toth MD PCP - General Nurse Practitioner 03/27/21 documented as of this encounter
--- NOTE | 2024-11-11 07:59 | PC.NURSE ---
Signed consent for R ankle reduction on pts chart.
[2024-11-11] MEDS: HYDROmorphone HCL INJ (*CRX) 2 MG/ML VIAL 0.5 MG IV PUSH ×2 (08:05→08:08)
--- NOTE | 2024-11-11 09:17 | ED.LOWEXIN ---
HPI - Extremity Injury (Lower) General Chief Complaint: Extremity Injury, Lower Stated Complaint: fall - ankle injury Time Seen by Provider: 11/11/24 07:00 History of Present Illness HPI Narrative: Patient is a 39-year-old female who presents ER with right ankle pain. She tripped over her oxygen line and fell onto the ground. She does not think she lost consciousness. She has obvious deformity to her ankle in cold for her family to help her. No numbness or tingling. Related Data Home Medications ?Medication ?Instructions ?Recorded ?Confirmed ?Last Taken ?Type atorvastatin 40 mg tablet 80 mg PO HS 07/18/20 11/11/24 11/10/24 20:00 History carvedilol 6.25 mg tablet 12.5 mg PO DAILY 07/18/20 11/11/24 11/10/24 History alendronate 70 mg tablet 70 mg PO WEEKLY 01/10/23 11/11/24 01/06/23 History calcium 600 mg (as 1 tablet PO BID 01/10/23 11/11/24 11/10/24 History carbonate)-vitamin D3 10 mcg (400 unit) tablet omeprazole 20 mg capsule,delayed 20 mg PO DAILY 01/10/23 11/11/24 11/10/24 History release Allergies Allergy/AdvReac Type Severity Reaction Status Date / Time No Known Allergies Allergy Unknown Verified 01/10/23 12:18 Review of Systems Review of Systems: All systems reviewed & are unremarkable except as noted in HPI and below Constitutional: Constitutional: Reports no additional constitutional complaints Cardiovascular: Cardiovascular: Reports no additional cardiovascular complaints Respiratory: Respiratory: Reports no additional respiratory complaints Musculoskeletal: Musculoskeletal: Reports no additional musculoskeletal complaints Neurologic: Reports system reviewed and no additional complaints, except as documented [facility] Past Medical History Medical History (Updated 11/11/24 @ 18:13 by Daniele Cohen MD) Chronic respiratory failure with hypoxia, on home oxygen therapy Chronic obstructive pulmonary disease Pulmonary hypertension Tobacco dependence Combined systolic and diastolic congestive heart failure Echocardiogram in September 2019 showed normal LV size with moderate concentric hypertrophy, moderately severe global LV dysfunction with no focal wall motion abnormalities, visually estimated EF of 30 to 35%, and grade 2 diastolic dysfunction. Left leg DVT (09/2019) Hypertension Anxiety Cardiomyopathy Bladder cancer (04/2011) Status post transurethral resection of bladder tumor with fulguration. Surgical History Surgical History History of open reduction and internal fixation (ORIF) procedure (07/2020) Repair left distal radial fracture History of transurethral resection of bladder tumor (TURBT) (04/2011) History of tonsillectomy and adenoidectomy Family History Family History Mother Sepsis Father Lung cancer Black lung disease Sibling Leukemia Social History Social History (Updated 11/11/24 @ 15:21 by Karla Modi PA-C) Social History: Surrogate medical decision maker: Elisabet Adams, daughter. Code status: Full code. Smoking packs per day: 0.5 Smoking cigarettes per day: 10.0 Years smoked: 45 Smoking pack-years: 22.50 Smoking status: Current every day smoker Alcohol intake: never Substance use: never Do You Feel Safe in your Home?: Yes Lack of Transportation: No Lack of Food: Never True Current Housing: I Have Housing Concerned About Future Housing: No Difficulty Paying Gas/Electric Bills: No Difficulty Paying for Meds: No Currently Unemployed: No Education: High School Diploma/GED Difficulty w/ Childcare or Family Care: No Living arrangements: with family Additional living arrangements comments: as of 2017. She has 2 daughters. Occupation/Education: retired Additional occupation/education comments: Retired from a [employer]. Spiritual care concerns: No Agree to blood products: Yes Exam Narrative: GENERAL: Well-appearing, well-nourished, and in no acute distress. HEAD: Normocephalic, atraumatic. ENT: Mucous membranes moist. CHEST: Clear to auscultation. No respiratory distress. HEART: Regular rate and rhythm. Normal peripheral pulses. ABDOMEN: Soft, nontender, nondistended. EXTREMITIES: Right lower extremity with deformity at the ankle with dorsalis pedis pulses intact. Normal gross sensation. Normal left lower extremity. SKIN: Warm, dry, no rash. NEURO: Alert and oriented x3. PSYCH: Normal mood and affect. Course Course Emergency Course: Ankle reduced. Orthopedic surgery consulted. Patient unable to ambulate with walker so admit to hospitalist service. Vital Signs Vital signs: Vital Signs Temperature 98.2 F 11/11/24 06:30 Pulse Rate 90 11/11/24 06:30 Respiratory Rate 21 H 11/11/24 06:30 Pulse Oximetry 98 11/11/24 06:30 Oxygen Delivery Room Air 11/11/24 06:30 Temperature 97.6 F 11/11/24 13:37 Pulse Rate 78 11/11/24 13:37 Respiratory Rate 18 11/11/24 13:37 Blood Pressure 121/73 11/11/24 13:37 Pulse Oximetry 97 11/11/24 13:37 Oxygen Delivery Nasal Cannula 11/11/24 09:36 Oxygen Flow Rate 2.5 11/11/24 09:36 Procedures Procedural Sedation Procedural Sedation #1: Procedural Sedation Date: 11/11/24 Procedural Sedation Time: 09:06 Presedation Evaluation: Awake alert orient x4 Procedure: Right ankle reduction and splinting Provider Performed: sedation and procedure Informed Consent Obtained: yes Equipment in Room: bag and mask, capnography, teletypesetter monitor, crash cart, oxygen, pulse oximeter and suction Plan for Sedation: moderate sedation ASA Class: IV Mallampati Classification: class II Explanation to Patient/Family: Risk/Benefits/Alternatives Pt. Educated on Procedural Sedation: Yes Re-evaluated immediately prior: Yes Preparation: teletypesetter monitor applied, pulse oximeter, capnometry used, supplemental O2 applied, reversal agents at bedside, suction/airway equipment at bedside and IV secured IV Propofol dose (mg): 40 Patient Tolerated Procedure: well Complications: none Total Sedation Time (min): 10 MDM - Extremity Injury (Lower) Imaging Data Radiologist's impression: ITS Impressions Ankle X-Ray 11/11/24 06:52 Impression: 1: Displaced fracture of the posterior malleolus with probable fracture of the lateral malleolus and possibly the medial malleolus. There is dorsal dislocation of the talus with respect to the tibia. Chest X-Ray 11/11/24 06:54 IMPRESSION: 1: NO ACUTE CARDIOPULMONARY DISEASE. Ankle X-Ray 11/11/24 08:28 Impression: 1: Displaced bimalleolar fractures with medial subluxation of the talus. Ankle X-Ray 11/11/24 09:28 Impression: 1: Significantly improved alignment of bimalleolar fractures. Head CT 11/11/24 09:55 IMPRESSION: 1. No acute intracranial abnormality. Discharge Plan Discharge Clinical Impression: Closed fracture dislocation of ankle Patient Disposition: Still a Patient Condition: Stable
--- NOTE | 2024-11-11 12:30 | ADMGEN ---
This patient, Felipa Adams, was admitted to Medical Room 253-01. Patient/family oriented to hospital policies and general routines including ID bracelet, bed and alarms, visiting hours, pain management, procedures, bathroom and other care routines, personal items, smoking policy, room service/diet, and visiting hours. Information on how to activate the Rapid Response Team has been discussed. Patient/Family are encouraged to report perceived risks to care and to ask questions if they do not understand what they are told or what they should do.
--- NOTE | 2024-11-11 12:55 | P.HP_ITS ---
H&P: HPI History of Present Illness Date/Time: 11/11/24 14:00 Chief Complaint: Right nkle pain after fall. Narrative: This is a 79-year-old female smoker with history of dementia, chronic respiratory failure with hypoxia on home oxygen, chronic obstructive pulmonary disease, hypertension, hyperlipidemia, combined systolic and diastolic congestive heart failure, and deep venous thrombosis who presented to the emergency department via EMS from home for evaluation of right ankle pain after a fall. She got up to use the bathroom in the middle of the night and unfortunately that tripped up on her oxygen tubing, landing on her right side with immediate pain in her right ankle. She denies head trauma and loss of consciousness in stay she did not sustain any other injuries aside from her ankle. At the time my evaluation she states that the pain is well controlled. She complains of the need to urinate but has not been able to empty her bladder since admission to the floor. She denies fever, chills, sweats, cold and flu symptoms, chest pain, pleuritic pain, palpitations, shortness of breath, cough, cold and flu symptoms, nausea, vomiting, diarrhea, and dysuria. No numbness or tingling in the right foot. In the ED: Vital signs were stable on arrival. Radiographs of the right ankle showed displaced bimalleolar fractures which were reduced. She is being admitted in this setting for pain control and orthopedic evaluation. Review of Systems Review of Systems: 12 systems were reviewed and are negativ e except for as per HPI. [facility] Past Medical History Medical History Chronic respiratory failure with hypoxia, on home oxygen therapy Chronic obstructive pulmonary disease Pulmonary hypertension Tobacco dependence Combined systolic and diastolic congestive heart failure Echocardiogram in September 2019 showed normal LV size with moderate concentric hypertrophy, moderately severe global LV dysfunction with no focal wall motion abnormalities, visually estimated EF of 30 to 35%, and grade 2 diastolic dysfunction. Left leg DVT (09/2019) Hypertension Anxiety Cardiomyopathy Bladder cancer (04/2011) Status post transurethral resection of bladder tumor with fulguration. Surgical History Surgical History History of open reduction and internal fixation (ORIF) procedure (07/2020) Repair left distal radial fracture History of transurethral resection of bladder tumor (TURBT) (04/2011) History of tonsillectomy and adenoidectomy Family History Family History Mother Sepsis Father Lung cancer Black lung disease Sibling Leukemia Social History Social History Social History: Surrogate medical decision maker: Elisabet Adams, daughter. Code status: Full code. Smoking packs per day: 0.5 Smoking cigarettes per day: 10.0 Years smoked: 45 Smoking pack-years: 22.50 Smoking status: Current every day smoker Alcohol intake: never Substance use: never Do You Feel Safe in your Home?: Yes Lack of Transportation: No Lack of Food: Never True Current Housing: I Have Housing Concerned About Future Housing: No Difficulty Paying Gas/Electric Bills: No Difficulty Paying for Meds: No Currently Unemployed: No Education: High School Diploma/GED Difficulty w/ Childcare or Family Care: No Living arrangements: with family Additional living arrangements comments: as of 2017. She has 2 daughters. Occupation/Education: retired Additional occupation/education comments: Retired from a [employer]. Spiritual care concerns: No Agree to blood products: Yes Meds Home Medications and Allergies Home Medications ?Medication ?Instructions ?Recorded ?Confirmed ?Type furosemide 20 mg tablet 20 mg PO DAILY 30 days #30 tabs 09/23/19 11/11/24 Rx atorvastatin 40 mg tablet 80 mg PO HS 07/18/20 11/11/24 History carvedilol 6.25 mg tablet 12.5 mg PO DAILY 07/18/20 11/11/24 History alendronate 70 mg tablet 70 mg PO WEEKLY 01/10/23 11/11/24 History calcium 600 mg (as 1 tablet PO BID 01/10/23 11/11/24 History carbonate)-vitamin D3 10 mcg (400 unit) tablet omeprazole 20 mg capsule,delayed 20 mg PO DAILY 01/10/23 11/11/24 History release ipratropium 20 mcg-albuterol 100 1 puff inhalation QID #4 grams 01/15/23 11/11/24 Rx mcg/actuation mist for inhalation (Combivent Respimat) valsartan 320 mg tablet 320 mg PO DAILY #30 tabs 01/15/23 11/11/24 Rx Allergies Allergy/AdvReac Type Severity Reaction Status Date / Time No Known Allergies Allergy Unknown Verified 01/10/23 12:18 Vital Signs Vital Signs - 24 hr 11/11/24 06:30 11/11/24 08:00 11/11/24 08:01 Temperature 98.2 F Pulse Rate 90 84 Pulse Rate [Monitor] Respiratory Rate 21 H 12 12 Blood Pressure 159/73 H Blood Pressure [Left Arm] Pulse Oximetry 98 96 96 Oxygen Delivery Room Air Oxygen Flow Rate 11/11/24 08:05 11/11/24 08:08 11/11/24 08:10 Temperature Pulse Rate 83 Pulse Rate [Monitor] 86 Respiratory Rate 15 12 12 Blood Pressure 159/67 H Blood Pressure [Left Arm] 159/67 H 138/76 Pulse Oximetry 95 93 93 Oxygen Delivery Room Air Room Air Oxygen Flow Rate 11/11/24 08:12 11/11/24 08:16 11/11/24 08:21 Temperature Pulse Rate 83 83 78 Pulse Rate [Monitor] Respiratory Rate 13 13 14 Blood Pressure 138/76 140/82 121/71 Blood Pressure [Left Arm] Pulse Oximetry 93 94 94 Oxygen Delivery Oxygen Flow Rate 11/11/24 08:23 11/11/24 08:26 11/11/24 08:31 Temperature Pulse Rate 79 75 Pulse Rate [Monitor] 85 Respiratory Rate 12 14 12 Blood Pressure 141/62 H 131/68 Blood Pressure [Left Arm] 140/82 Pulse Oximetry 92 94 93 Oxygen Delivery Room Air Oxygen Flow Rate 11/11/24 08:36 11/11/24 08:41 11/11/24 08:46 Temperature Pulse Rate 77 80 76 Pulse Rate [Monitor] Respiratory Rate 16 14 12 Blood Pressure 135/73 136/73 143/84 H Blood Pressure [Left Arm] Pulse Oximetry 93 94 98 Oxygen Delivery Oxygen Flow Rate 11/11/24 08:51 11/11/24 08:56 11/11/24 09:01 Temperature Pulse Rate 78 80 75 Pulse Rate [Monitor] Respiratory Rate 13 13 12 Blood Pressure 136/72 152/68 H 123/73 Blood Pressure [Left Arm] Pulse Oximetry 99 100 100 Oxygen Delivery Oxygen Flow Rate 11/11/24 09:05 11/11/24 09:06 11/11/24 09:06 Temperature 98.2 F 98.2 F Pulse Rate Pulse Rate [Monitor] 85 77 77 Respiratory Rate 12 16 16 Blood Pressure Blood Pressure [Left Arm] 140/82 123/73 123/73 Pulse Oximetry 92 100 100 Oxygen Delivery Room Air Nasal Cannula Nasal Cannula Oxygen Flow Rate 2.5 2.5 11/11/24 09:06 11/11/24 09:11 11/11/24 09:16 Temperature Pulse Rate 77 76 76 Pulse Rate [Monitor] Respiratory Rate 12 16 17 Blood Pressure 144/67 H 137/63 129/62 Blood Pressure [Left Arm] Pulse Oximetry 100 94 99 Oxygen Delivery Oxygen Flow Rate 11/11/24 09:21 11/11/24 09:21 11/11/24 09:26 Temperature Pulse Rate 77 77 Pulse Rate [Monitor] 74 Respiratory Rate 16 19 16 Blood Pressure 110/53 L 145/55 H Blood Pressure [Left Arm] 110/53 L Pulse Oximetry 100 99 99 Oxygen Delivery Nasal Cannula Oxygen Flow Rate 2.5 11/11/24 09:36 Temperature Pulse Rate Pulse Rate [Monitor] 78 Respiratory Rate 12 Blood Pressure Blood Pressure [Left Arm] 128/68 Pulse Oximetry 100 Oxygen Delivery Nasal Cannula Oxygen Flow Rate 2.5 Exam Narrative: General: Nontoxic-appearing female sitting up in bed in no acute distress. Weight: 70.2 kg. BMI: 20.7. HEENT: PERRL, EOMI. Sclera anicteric. Tacky mucous membranes. Neck: Supple. Respiratory: Respirations are nonlabored and she is speaking in full sentences. Lung sounds are diminished throughout without adventitious sounds. Cardiovascular: Regular rate and rhythm with S1-S2. Gastrointestinal: Abdomen is soft, nontender, and nondistended with positive bowel sounds. Skin: Warm and dry. No rash or lesions on limited exam. Extremities: No cyanosis, clubbing, or significant edema. Peripheral pulses intact. Musculoskeletal: Right lower leg is splinted and casted. Neurological: Alert. Cranial nerves 2-12 are grossly intact. No gross focal deficits to casual conversation. Psychiatric: Pleasant and cooperative. She is is a bit forgetful and repetitive. Appropriate mood and affect. H&P: Results Labs Labs: Impressions Ankle X-Ray 11/11/24 06:52 Impression: 1: Displaced fracture of the posterior malleolus with probable fracture of the lateral malleolus and possibly the medial malleolus. There is dorsal dislocation of the talus with respect to the tibia. Chest X-Ray 11/11/24 06:54 IMPRESSION: 1: NO ACUTE CARDIOPULMONARY DISEASE. Ankle X-Ray 11/11/24 08:28 Impression: 1: Displaced bimalleolar fractures with medial subluxation of the talus. Ankle X-Ray 11/11/24 09:28 Impression: 1: Significantly improved alignment of bimalleolar fractures. Head CT 11/11/24 09:55 IMPRESSION: 1. No acute intracranial abnormality. Assessment and Plan Assessment and plan (1) Bimalleolar fracture of right ankle: Code(s): S82.841A - Displaced bimalleolar fracture of right lower leg, initial encounter for closed fracture Status: Acute (2) Urinary retention: Code(s): R33.9 - Retention of urine, unspecified Status: Acute (3) Acute kidney injury: Code(s): N17.9 - Acute kidney failure, unspecified Status: Acute (4) Combined systolic and diastolic congestive heart failure: Qualifiers: Heart failure chronicity: chronic Qualified Code(s): I50.42 - Chronic combined systolic (congestive) and diastolic (congestive) heart failure Code(s): I50.40 - Unspecified combined systolic (congestive) and diastolic (congestive) heart failure Status: Acute (5) Hypertension: Qualifiers: Hypertension type: primary hypertension Qualified Code(s): I10 - Essential (primary) hypertension Code(s): I10 - Essential (primary) hypertension Status: Acute (6) Chronic obstructive pulmonary disease: Code(s): J44.9 - Chronic obstructive pulmonary disease, unspecified Status: Acute (7) Chronic respiratory failure with hypoxia, on home oxygen therapy: Code(s): J96.11 - Chronic respiratory failure with hypoxia; Z99.81 - Dependence on supplemental oxygen Status: Acute Plan The patient presented to the emergency department for evaluation of right ankle pain after a fall as detailed in HPI. Labs, imaging, EKG, and all reports were personally reviewed. Radiographs showed displaced, by malleolar fracture which was reduced in the ED. Analgesics are available as needed. She will be NPO after midnight in case she is taken to the OR tomorrow for repair. Creatinine is elevated from baseline, possibly due to urinary retention. Insert Galvin catheter and monitor strict I/O. Repeat renal function in a.m. and if no improvement a further workup can be pursued. Hold furosemide for now. No acute issues with regards to her COPD. She is at her baseline oxygen requirement. Volume status is euvolemic. Vital signs have been stable. Check baseline labs in a.m.. Her home medications will be reviewed and resumed as appropriate. Findings and treatment plan were discussed with the patient. Questions were solicited and answered to satisfaction. The patient's medical management will be taken over by the hospitalist team in a.m. Quality VTE Prophylaxis VTE prophylaxis: mechanical ordered If No VTE Prophylaxis Answer both mechanical and pharmacologic: Reason no pharmacologic proph: medical contraindication (possible surgery tomorrow- if not will need to intitiate) The patient has been admitted under observation status. Hospitalist [facility] Advance Care Plan I have confirmed that the patient's Advanced Care Plan is present, code status is documented, or surrogate decision maker is listed in patient medical record.: Yes Medication Reconciliation I have utilized all available resources to obtain, update and review the patients current medications (includes all prescriptions, OTC, herbals, cannabis, and nutritional supplements).: Yes
[2024-11-11] MEDS: HYDROcodone/acetaminophen (*CRX) 5-325 MG TABLET 1 TAB PO ×2 (13:24→20:55)
[2024-11-11 18:25] LABS: Hematocrit 36.9 % (37.0-47.0); Hemoglobin 11.4 g/dL (12.0-15.0); Mean Corpuscular HGB Conc 30.9 g/dl (32-36); Mean Corpuscular Hemoglobin 29.4 pg (26-34); Mean Corpuscular Volume 95.1 fl (80-100); Platelet Count Result 126 k/mm3 (150-375); Red Blood Count 3.88 M/mm3 (4.2-5.4); White Blood Count 8.8 K/mm3 (4.5-10.0)
[2024-11-11 18:35] LABS: Anion Gap 4 mmol/L (4-12); Blood Urea Nitrogen 32 mg/dL (7-17); Calcium 9.1 mg/dL (8.4-10.2); Carbon Dioxide 36 mmol/L (22-30); Chloride 98 mmol/L (98-107); Estimated CRCL calculation 32 ml/min; Estimated Glomerular Filt Rate 39; Glucose 153 mg/dL (65-110); Potassium 4.1 mmol/L (3.4-5.0); Sodium 138 mmol/L (137-145)
[2024-11-11] MEDS: SODIUM CHLORIDE 0.9% IV 1,000 ML 100 ML IV CONT (21:33)
[2024-11-12 05:29] LABS: Hematocrit 37.1 % (37.0-47.0); Hemoglobin 11.5 g/dL (12.0-15.0); Mean Corpuscular Hemoglobin 29.5 pg (26-34); Mean Corpuscular Volume 95.1 fl (80-100); Mean Platelet Volume 9.3 fl (7.4-10.4); Platelet Count Result 117 k/mm3 (150-375); Red Cell Distribution Width 13.1 % (11.5-14.5)
[2024-11-12 05:39] LABS: Alanine Aminotransferase 19 U/L (6-35); Albumin Level 3.7 g/dL (3.5-5.1); Alkaline Phosphatase 68 U/L (38-126); Anion Gap 5 mmol/L (4-12); Aspartate Amino Transferase 23 U/L (14-36); Bilirubin,Total 0.9 mg/dL (0.2-1.3); Blood Urea Nitrogen 23 mg/dL (7-17); Calcium 8.7 mg/dL (8.4-10.2); Carbon Dioxide 32 mmol/L (22-30); Chloride 102 mmol/L (98-107); Estimated CRCL calculation 41 ml/min; Estimated Glomerular Filt Rate 52; Glucose 112 mg/dL (65-110); Potassium 3.8 mmol/L (3.4-5.0); Sodium 139 mmol/L (137-145)
[2024-11-12 06:00] VITALS: BP 134/60; PULSE 92; RESP 18; TEMP 36.9; O2SAT 96
--- NOTE | 2024-11-12 07:15 | P.PNIM_ITS ---
Progress Note: A&P Assessment and Plan (1) Bimalleolar fracture of right ankle: Code(s): S82.841A - Displaced bimalleolar fracture of right lower leg, initial encounter for closed fracture Status: Acute Assessment and Plan: Radiographs showed displaced, by malleolar fracture which was reduced in the ED. -Awaiting ortho eval, NPO pending possible surgical intervention -Pain control analgesia ordered, controlling her pain per pt (2) Urinary retention: Code(s): R33.9 - Retention of urine, unspecified Status: Acute Assessment and Plan: Galvin catheter in place with strict I&O -Creat from 1.31 in ED to 1.02 today which looks to be more of her baseline, nyla l continue to trend 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 Qualified Code(s): I50.42 - Chronic combined systolic (congestive) and diastolic (congestive) heart failure Code(s): I50.40 - Unspecified combined systolic (congestive) and diastolic (congestive) heart failure Status: Acute Assessment and Plan: Holding furosemide for now, will continue to assess pt volume status -Pt denies any CP, SOB, or swelling issues (5) Hypertension: Qualifiers: Hypertension type: primary hypertension Qualified Code(s): I10 - Essential (primary) hypertension Code(s): I10 - Essential (primary) hypertension Status: Acute Assessment and Plan: Current BP 134/60 -Holding home meds until ortho makes surgical decision, will continue to trend B P measurements (6) Chronic obstructive pulmonary disease: Code(s): J44.9 - Chronic obstructive pulmonary disease, unspecified Status: Acute Assessment and Plan: No acute issues, remains on her home 2 L O2 (baseline per daughter is 2-3L at home with exertion, she does not use it at night) (7) Chronic respiratory failure with hypoxia, on home oxygen therapy: Code(s): J96.11 - Chronic respiratory failure with hypoxia; Z99.81 - Dependence on supplemental oxygen Status: Acute Assessment and Plan: See above. Plan NPO, IVF, pain control, pending UA, ortho recs Subjective Date/time seen: 11/12/24 0913 Interval history: Pt is a 79-year-old female smoker with hx of dementia, chronic respiratory failure with hypoxia on home oxygen (2-3L baseline), COPD, HTN, HLD, combined systolic and diastolic congestive heart failure, and deep venous thrombosis who presented to the ED via EMS from home for evaluation of R ankle pain after a fall on 11/11. She got up to use the bathroom in the middle of the night and unfortunately tripped on her oxygen tubing, landing on her right side with immediate pain in her R ankle. She denies head trauma and LOC and she did not sustain any other injuries aside from her R ankle. She denies fever, chills, sweats, cold and flu symptoms, chest pain, pleuritic pain, palpitations, shortness of breath, cough, cold and flu symptoms, nausea, vomiting, diarrhea, and dysuria. No numbness or tingling in the right foot. In the ED: Vital signs were stable on arrival. Radiographs of the right ankle showed displaced bimalleolar fractures which were reduced. She is being admitted in this setting for pain control and orthopedic evaluation. 11/12: Upon examination today, pt's x2 daughters at the bedside. She pt reports that the pain is controlled with the pain medication, but at its worst, it is 7/10. PMS intact today to RLE. Pt denies CP, SOB, or any swelling issues with regard to holding her lasix. Pt continues to be NPO incase of surgery, ortho consult pending. Pt tells me that her O2 baseline requirement is 2-3L, mainly with exertion, rarely at night, but, she tends to keep the NC around her neck when she sleeps, so , this may explain the fall (per daughters). Pt with no other complaints. Review of Systems Review of Systems: 12 systems were reviewed and are negativ e except for as per HPI. Exam Const: General: comfortable and no acute distress Other: +Obese HENMT: Other: Tacky mucus membranes Eyes: General: appearance normal, both eyes and all related structures Sclera: sclerae normal Neck: Neck: supple and no JVD Carotids: no bruits Resp: Effort & Inspection: normal respiratory effort (on 2 L NC O2) Other: BS diminished throughout Cardio: Rate: regular rate Rhythm: regular rhythm GI: Inspection: non-distended Auscultation: normal bowel sounds : External Female Exam: normal external appearance Bimanual exam- vagina & uterus: bladder normal to palpation Urinary Catheter: Urinary Catheter: patent and draining and urine clear Skin: General skin exam: normal color and no rashes or lesions noted Neuro: Speech: normal speech Motor exam (neuro): Normal motor muscle tone present throughout Sensory Exam: normal sensation Extrem: Other: RLL is splinted and casted, C/D/I, PMS intact Psych: Mental Status: mental status grossly normal Affect: normal affect Objective Data Vital Signs Vital Signs: Vital Signs - 24 hr 11/11/24 08:00 11/11/24 08:01 11/11/24 08:05 Temperature Pulse Rate 84 Pulse Rate [Monitor] Respiratory Rate 12 12 15 Blood Pressure 159/73 H Blood Pressure [Left Arm] 159/67 H Pulse Oximetry 96 96 95 Oxygen Delivery Room Air Oxygen Flow Rate Fraction of Inspired Oxygen 11/11/24 08:08 11/11/24 08:10 11/11/24 08:12 Temperature Pulse Rate 83 83 Pulse Rate [Monitor] 86 Respiratory Rate 12 12 13 Blood Pressure 159/67 H 138/76 Blood Pressure [Left Arm] 138/76 Pulse Oximetry 93 93 93 Oxygen Delivery Room Air Oxygen Flow Rate Fraction of Inspired Oxygen 11/11/24 08:16 11/11/24 08:21 11/11/24 08:23 Temperature Pulse Rate 83 78 Pulse Rate [Monitor] 85 Respiratory Rate 13 14 12 Blood Pressure 140/82 121/71 Blood Pressure [Left Arm] 140/82 Pulse Oximetry 94 94 92 Oxygen Delivery Room Air Oxygen Flow Rate Fraction of Inspired Oxygen 11/11/24 08:26 11/11/24 08:31 11/11/24 08:36 Temperature Pulse Rate 79 75 77 Pulse Rate [Monitor] Respiratory Rate 14 12 16 Blood Pressure 141/62 H 131/68 135/73 Blood Pressure [Left Arm] Pulse Oximetry 94 93 93 Oxygen Delivery Oxygen Flow Rate Fraction of Inspired Oxygen 11/11/24 08:41 11/11/24 08:46 11/11/24 08:51 Temperature Pulse Rate 80 76 78 Pulse Rate [Monitor] Respiratory Rate 14 12 13 Blood Pressure 136/73 143/84 H 136/72 Blood Pressure [Left Arm] Pulse Oximetry 94 98 99 Oxygen Delivery Oxygen Flow Rate Fraction of Inspired Oxygen 11/11/24 08:56 11/11/24 09:01 11/11/24 09:05 Temperature 98.2 F Pulse Rate 80 75 Pulse Rate [Monitor] 85 Respiratory Rate 13 12 12 Blood Pressure 152/68 H 123/73 Blood Pressure [Left Arm] 140/82 Pulse Oximetry 100 100 92 Oxygen Delivery Room Air Oxygen Flow Rate Fraction of Inspired Oxygen 11/11/24 09:06 11/11/24 09:06 11/11/24 09:06 Temperature 98.2 F Pulse Rate 77 Pulse Rate [Monitor] 77 77 Respiratory Rate 16 16 12 Blood Pressure 144/67 H Blood Pressure [Left Arm] 123/73 123/73 Pulse Oximetry 100 100 100 Oxygen Delivery Nasal Cannula Nasal Cannula Oxygen Flow Rate 2.5 2.5 Fraction of Inspired Oxygen 11/11/24 09:11 11/11/24 09:16 11/11/24 09:21 Temperature Pulse Rate 76 76 Pulse Rate [Monitor] 74 Respiratory Rate 16 17 16 Blood Pressure 137/63 129/62 Blood Pressure [Left Arm] 110/53 L Pulse Oximetry 94 99 100 Oxygen Delivery Nasal Cannula Oxygen Flow Rate 2.5 Fraction of Inspired Oxygen 11/11/24 09:21 11/11/24 09:26 11/11/24 09:36 Temperature Pulse Rate 77 77 Pulse Rate [Monitor] 78 Respiratory Rate 19 16 12 Blood Pressure 110/53 L 145/55 H Blood Pressure [Left Arm] 128/68 Pulse Oximetry 99 99 100 Oxygen Delivery Nasal Cannula Oxygen Flow Rate 2.5 Fraction of Inspired Oxygen 11/11/24 13:37 11/11/24 20:00 11/11/24 21:25 Temperature 97.6 F Pulse Rate 78 72 Pulse Rate [Monitor] Respiratory Rate 18 20 Blood Pressure 121/73 Blood Pressure [Left Arm] Pulse Oximetry 97 95 95 Oxygen Delivery Nasal Cannula Nasal Cannula Oxygen Flow Rate 2 1 Fraction of Inspired Oxygen 24 11/11/24 22:00 11/12/24 06:00 Temperature 97.5 F L 98.4 F Pulse Rate 76 92 Pulse Rate [Monitor] Respiratory Rate 18 18 Blood Pressure 150/46 H 134/60 Blood Pressure [Left Arm] Pulse Oximetry 98 96 Oxygen Delivery Oxygen Flow Rate Fraction of Inspired Oxygen Intake/Output Intake/Output: Intake & Output 11/09/24 11/10/24 11/11/24 11/12/24 23:59 23:59 23:59 23:59 Intake Total 240 Output Total 0 1500 Balance 240 -1500 Meds/Results Medications: Active Medications Generic Name Dose Route Start Last Admin Trade Name Freq PRN Reason Stop Dose Admin Acetaminophen 650 mg 11/11/24 10:57 Acetaminophen 325 Mg Tablet PO Q4H PRN Mild Pain (1-3) or Fever Hydrocodone Bitart/Acetaminophen 1 tab 11/11/24 10:57 11/11/24 20:55 Hydrocodone/Acetaminophen (*Crx) 5-325 Mg Tablet PO 1 tab Q4H PRN Administration Pain Rated 4-6 Morphine Sulfate 2 mg 11/11/24 10:57 Morphine Sulfate (*Crx) 2 Mg/Ml Inj IV PUSH Q2H PRN Pain Rated 7-10 Ondansetron HCl 4 mg 11/11/24 10:57 Ondansetron Inj 4 Mg/2 Ml Vial IV PUSH Q4H PRN Nausea Radiology Results: ITS Impressions Chest X-Ray 11/11/24 06:54 IMPRESSION: 1: NO ACUTE CARDIOPULMONARY DISEASE. Ankle X-Ray 11/11/24 09:28 Impression: 1: Significantly improved alignment of bimalleolar fractures. Head CT 11/11/24 09:55 IMPRESSION: 1. No acute intracranial abnormality. Labs Labs: Laboratory Results - last 24 hr 11/11/24 11/12/24 18:21 05:06 WBC 8.8 8.0 RBC 3.88 L 3.90 L Hgb 11.4 L D 11.5 L Hct 36.9 L 37.1 MCV 95.1 95.1 MCH 29.4 29.5 MCHC 30.9 L 31.0 L RDW 13.0 13.1 Plt Count 126 L 117 L MPV 9.0 9.3 Sodium 138 139 Potassium 4.1 3.8 Chloride 98 102 Carbon Dioxide 36 H 32 H Anion Gap 4 5 BUN 32 H D 23 H Creatinine 1.31 H 1.02 H Estim Creat Clear Calc 32 41 Estimated GFR 39 L 52 L Glucose 153 H 112 H Calcium 9.1 8.7 Magnesium 2.0 Total Bilirubin 0.9 AST 23 ALT 19 Alkaline Phosphatase 68 Total Protein 6.0 L Albumin 3.7 Quality VTE Prophylaxis VTE prophylaxis: mechanical ordered
[2024-11-12 08:00] VITALS: PULSE 83; O2SAT 99
[2024-11-12] MEDS: HYDROcodone/acetaminophen (*CRX) 5-325 MG TABLET 1 TAB PO ×3 (08:38→21:15)
--- NOTE | 2024-11-12 10:22 | PCPTNOTE ---
Pt pending ortho consult due to displaced bimnalleolar fracture right ankle. Will continue to follow
[2024-11-12 10:24] LABS: Add Urine Microscopic? YES; Appearance Urine Clear (Clear); Bacteria Urine None Seen /hpf; Bilirubin Urine Negative (Negative); Blood Urine 3+ (Negative); Color Urine Yellow (Yellow); Glucose Urine UA Negative (Negative); Ketones Urine Trace mg/dL (Negative); Leukocyte Esterase Ur 2+ LEU/UL (Negative); Nitrate Urine Negative (Negative); Non Pathogenic Casts 0-2; Protein Urine 1+ mg/dL (Negative); RBC Urine 21-50 /hpf (0-2); Specific Grav Ur 1.012 (1.001-1.035); Squamous Epithelial Cell Urine None Seen /hpf (Few); Urobilinogen Urine 0.2 mg/dL (<2.0); WBC Urine 21-50 /hpf (0-3)
[2024-11-12 14:00] VITALS: BP 148/61; PULSE 83; RESP 20; TEMP 36.5; O2SAT 100
--- NOTE | 2024-11-12 16:41 | PM.CNOR ---
Assessment and Plan Assessment and plan (1) Bimalleolar fracture of right ankle: Code(s): S82.841A - Displaced bimalleolar fracture of right lower leg, initial encounter for closed fracture Status: Acute Plan The patient is a 79-year-old female with a right ankle fracture dislocation that was reduced in the emergency room at the time of her admission. She lives at home with two daughters and apparently tripped over an oxygen line. Given the patient's fracture dislocation, I would like to wait until the swelling decreases before performing surgery. I do believe that she will benefit from having surgical fixation at the fracture. I anticipate that she may be ready for surgery Wednesday of this week. History of Present Illness HPI Consult date: 11/13/24 Requesting physician: Thiago Gunn MD Chief complaint: ankle fracture right Narrative: Patient is a 39-year-old female who presents ER with right ankle pain. She tripped over her oxygen line and fell onto the ground. No other injuries. [facility] Past Medical History Medical History Chronic respiratory failure with hypoxia, on home oxygen therapy Chronic obstructive pulmonary disease Pulmonary hypertension Tobacco dependence Combined systolic and diastolic congestive heart failure Echocardiogram in September 2019 showed normal LV size with moderate concentric hypertrophy, moderately severe global LV dysfunction with no focal wall motion abnormalities, visually estimated EF of 30 to 35%, and grade 2 diastolic dysfunction. Left leg DVT (09/2019) Hypertension Anxiety Cardiomyopathy Bladder cancer (04/2011) Status post transurethral resection of bladder tumor with fulguration. Surgical History Surgical History History of open reduction and internal fixation (ORIF) procedure (07/2020) Repair left distal radial fracture History of transurethral resection of bladder tumor (TURBT) (04/2011) History of tonsillectomy and adenoidectomy Family History Family History Mother Sepsis Father Lung cancer Black lung disease Sibling Leukemia Social History Social History Social History: Surrogate medical decision maker: Elisabet Adams, daughter. Code status: Full code. Smoking packs per day: 0.5 Smoking cigarettes per day: 10.0 Years smoked: 45 Smoking pack-years: 22.50 Smoking status: Current every day smoker Alcohol intake: never Substance use: never Do You Feel Safe in your Home?: Yes Lack of Transportation: No Lack of Food: Never True Current Housing: I Have Housing Concerned About Future Housing: No Difficulty Paying Gas/Electric Bills: No Difficulty Paying for Meds: No Currently Unemployed: No Education: High School Diploma/GED Difficulty w/ Childcare or Family Care: No Living arrangements: with family Additional living arrangements comments: as of 2017. She has 2 daughters. Occupation/Education: retired Additional occupation/education comments: Retired from a [employer]. Spiritual care concerns: No Agree to blood products: Yes Meds Home Medications and Allergies Home Medications ?Medication ?Instructions ?Recorded ?Confirmed ?Type furosemide 20 mg tablet 20 mg PO DAILY 30 days #30 tabs 09/23/19 11/11/24 Rx atorvastatin 40 mg tablet 80 mg PO HS 07/18/20 11/11/24 History carvedilol 6.25 mg tablet 12.5 mg PO DAILY 07/18/20 11/11/24 History alendronate 70 mg tablet 70 mg PO WEEKLY 01/10/23 11/11/24 History calcium 600 mg (as 1 tablet PO BID 01/10/23 11/11/24 History carbonate)-vitamin D3 10 mcg (400 unit) tablet omeprazole 20 mg capsule,delayed 20 mg PO DAILY 01/10/23 11/11/24 History release ipratropium 20 mcg-albuterol 100 1 puff inhalation QID #4 grams 01/15/23 11/11/24 Rx mcg/actuation mist for inhalation (Combivent Respimat) valsartan 320 mg tablet 320 mg PO DAILY #30 tabs 01/15/23 11/11/24 Rx Allergies Allergy/AdvReac Type Severity Reaction Status Date / Time No Known Allergies Allergy Unknown Verified 01/10/23 12:18 Vital Signs Vital Signs - 24 hr 11/11/24 20:00 11/11/24 21:25 11/11/24 22:00 Temperature 36.4 C L Pulse Rate 72 76 Respiratory Rate 20 18 Blood Pressure 150/46 H Pulse Oximetry 95 95 98 Oxygen Delivery Nasal Cannula Nasal Cannula Oxygen Flow Rate 2 1 Fraction of Inspired Oxygen 24 11/12/24 06:00 11/12/24 08:00 11/12/24 14:00 Temperature 36.9 C 36.5 C Pulse Rate 92 83 83 Respiratory Rate 18 20 Blood Pressure 134/60 148/61 H Pulse Oximetry 96 99 100 Oxygen Delivery Nasal Cannula Oxygen Flow Rate 2.5 Fraction of Inspired Oxygen Exam Narrative: Exam of the patient's right lower extremity shows that it is in a short leg splint, good capillary refill and sensation to her toes. Const: General: cooperative, comfortable, no acute distress, well developed and awake Nutritional Appearance: overweight Orientation/consciousness: oriented to person and oriented to place Limitations: no limitations Results Labs 11/13/24 04:59 11/13/24 04:59 Labs: Abnormal lab results 11/11/24 11/12/24 11/12/24 Range/Units 18:21 05:06 10:13 RBC 3.88 L 3.90 L (4.2-5.4) M/mm3 Hgb 11.4 L D 11.5 L (12.0-15.0) g/dL Hct 36.9 L (37.0-47.0) % MCHC 30.9 L 31.0 L (32-36) g/dl Plt Count 126 L 117 L (150-375) k/mm3 Carbon Dioxide 36 H 32 H (22-30) mmol/L BUN 32 H D 23 H (7-17) mg/dL Creatinine 1.31 H 1.02 H (0.7-1.0) mg/dL Estimated GFR 39 L 52 L (59 - ) Glucose 153 H 112 H (65-110) mg/dL Total Protein 6.0 L (6.3-8.2) g/dL Urine Protein 1+ H (Negative) mg/dL Urine Ketones Trace H (Negative) mg/dL Ur Blood (Man) 3+ H (Negative) Leukocyte Esterase Rfl 2+ H (Negative) HUBERT/UL Urine RBC 21-50 H (0-2) /hpf Urine WBC 21-50 H (0-3) /hpf H & H 11/11/24 11/12/24 Range/Units 18:21 05:06 Hgb 11.4 L D 11.5 L (12.0-15.0) g/dL Hct 36.9 L 37.1 (37.0-47.0) % All other labs normal.
[2024-11-12 20:00] VITALS: O2SAT 100
[2024-11-12 21:00] VITALS: PULSE 82; RESP 20; O2SAT 98
[2024-11-12 22:00] VITALS: BP 141/56; PULSE 74; RESP 18; TEMP 36.6; O2SAT 100
[2024-11-13] VITALS (8 sets, daily range): BP systolic 102–143; BP diastolic 46–56; PULSE 69–89; RESP 18–20; TEMP 36.4–36.7; O2SAT 97–100
[2024-11-13 05:26] LABS: Basophils Percent Auto 0.3 % (0.2-1.2); Eosinophils Absolute Auto 0.5 K/mm3 (0-0.3); Eosinophils Percent Auto 5.8 % (0-4.4); Hemoglobin 11.7 g/dL (12.0-15.0); Immature Granulocyte Absolute 0.05 K/mm3 (0.00-0.031); Immature Granulocyte Percent A 0.6 % (0-0.5); Lymphocytes Absolute Auto 0.96 K/mm3 (0.9-3.2); Lymphocytes Percent Auto 10.7 % (18.3-44.2); Mean Corpuscular Hemoglobin 29.5 pg (26-34); Mean Corpuscular Volume 98.2 fl (80-100); Mean Platelet Volume 9.1 fl (7.4-10.4); Monocytes Absolute Auto 0.9 K/mm3 (0.1-0.6); Monocytes Percent Auto 10.4 % (2.6-8.5); Neutrophils Absolute Auto 6.5 K/mm3 (1.3-6.7); Neutrophils Percent Auto 72.2 % (45.5-73.1); Platelet Count Result 114 k/mm3 (150-375); Red Blood Count 3.97 M/mm3 (4.2-5.4); Red Cell Distribution Width 13.2 % (11.5-14.5)
[2024-11-13] MEDS: HYDROcodone/acetaminophen (*CRX) 5-325 MG TABLET 1 TAB PO (05:27)
[2024-11-13 05:40] LABS: Alanine Aminotransferase 17 U/L (6-35); Albumin Level 3.6 g/dL (3.5-5.1); Alkaline Phosphatase 67 U/L (38-126); Anion Gap 7 mmol/L (4-12); Aspartate Amino Transferase 23 U/L (14-36); Bilirubin,Total 0.8 mg/dL (0.2-1.3); Blood Urea Nitrogen 20 mg/dL (7-17); Calcium 8.6 mg/dL (8.4-10.2); Carbon Dioxide 33 mmol/L (22-30); Chloride 101 mmol/L (98-107); Estimated CRCL calculation 42 ml/min; Estimated Glomerular Filt Rate 54; Glucose 83 mg/dL (65-110); Potassium 4.3 mmol/L (3.4-5.0); Sodium 141 mmol/L (137-145)
--- NOTE | 2024-11-13 09:22 | P.PNIM_ITS ---
Progress Note: A&P Assessment and Plan (1) Bimalleolar fracture of right ankle: Code(s): S82.841A - Displaced bimalleolar fracture of right lower leg, initial encounter for closed fracture Status: Acute Assessment and Plan: Radiographs showed displaced, by malleolar fracture which was reduced in the ED. -Per nursing on 11/12, ortho contacted at request of pt because she was hungry. Ortho reports that there was a miscommunication and that he would not perform surgery (if needed) for a number of days due to pt swelling. NPO cancelled, heart healthy diet resumed. -Ortho rounds on 11/13: Given the patient's fracture dislocation, I would like to wait until the swelling decreases before performing surgery. I do believe that she will benefit from having surgical fixation at the fracture. I anticipate that she may be ready for surgery Wednesday of this week. -Pain control analgesia ordered, controlling her pain per pt (2) Urinary retention: Code(s): R33.9 - Retention of urine, unspecified Status: Acute Assessment and Plan: Galvin catheter in place with strict I&O -Creat from 1.31 in ED to 0.99 today which looks to be more of her baseline, will continue to trend -UC pending 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 Qualified Code(s): I50.42 - Chronic combined systolic (congestive) and diastolic (congestive) heart failure Code(s): I50.40 - Unspecified combined systolic (congestive) and diastolic (congestive) heart failure Status: Acute Assessment and Plan: Restarted Lasix today given kidney labs improving, will continue to assess pt volume status -Pt denies any CP, SOB, or swelling issues -Adding on BNP to labs for 6/2 AM draw (5) Hypertension: Qualifiers: Hypertension type: primary hypertension Qualified Code(s): I10 - Essential (primary) hypertension Code(s): I10 - Essential (primary) hypertension Status: Acute Assessment and Plan: Current BP 143/56 -Restarted home meds today, will continue to trend BP measurements (6) Chronic obstructive pulmonary disease: Code(s): J44.9 - Chronic obstructive pulmonary disease, unspecified Status: Acute Assessment and Plan: No acute issues, remains on her home 2 L O2 (baseline per daughter is 2-3L at home with exertion, she does not use it at night) (7) Chronic respiratory failure with hypoxia, on home oxygen therapy: Code(s): J96.11 - Chronic respiratory failure with hypoxia; Z99.81 - Dependence on supplemental oxygen Status: Acute Assessment and Plan: See above. Plan Heart healthy diet until made NPO by ortho, pain control, pending UC, ortho recs for surgery later this week d/t swelling Subjective Date/time seen: 11/13/24 1013 Interval history: Pt is a 79-year-old female smoker with hx of dementia, chronic respiratory failure with hypoxia on home oxygen (2-3L baseline), COPD, HTN, HLD, combined systolic and diastolic congestive heart failure, and deep venous thrombosis who presented to the ED via EMS from home for evaluation of R ankle pain after a fall on 11/11. She got up to use the bathroom in the middle of the night and unfortunately tripped on her oxygen tubing, landing on her right side with immediate pain in her R ankle. She denies head trauma and LOC and she did not sustain any other injuries aside from her R ankle. She denies fever, chills, sweats, cold and flu symptoms, chest pain, pleuritic pain, palpitations, shortness of breath, cough, cold and flu symptoms, nausea, vomiting, diarrhea, and dysuria. No numbness or tingling in the right foot. In the ED: Vital signs were stable on arrival. Radiographs of the right ankle showed displaced bimalleolar fractures which were reduced. She is being admitted in this setting for pain control and orthopedic evaluation. 11/12: Upon examination today, pt's x2 daughters at the bedside, she lives alone but her daughters check in on her daily. She pt reports that the pain is controlled with the pain medication, but at its worst, it is 7/10. PMS intact today to RLE. Pt denies CP, SOB, or any swelling issues with regard to holding her lasix. Pt continues to be NPO incase of surgery, ortho consult pending. Pt tells me that her O2 baseline requirement is 2-3L, mainly with exertion, rarely at night, but, she tends to keep the NC around her neck when she sleeps, so , this may explain the fall (per daughters). Pt with no other complaints. 11/13: Pt resting comfortably in bed today and reports that she only feels pain when she moves her leg. Pt's daughters at the bedside. Updated on the plan which they knew via ortho, probable surgery not until /Wednesday due to pt leg swelling. Pt and daughters also report today that pt stopped smoking x2 years ago after a PNA scare. Pt continues to work with PT/OT. Pending UC. Review of Systems Review of Systems: 12 systems were reviewed and are negativ e except for as per HPI. Exam Const: General: comfortable and no acute distress Other: +Obese HENMT: Face/Nose/Sinus: Normal nares present Mouth: Yes moist mucous membranes Eyes: General: appearance normal, both eyes and all related structures Sclera: sclerae normal Neck: Neck: supple and no JVD Carotids: no bruits Resp: Effort & Inspection: normal respiratory effort (on 2 L NC O2) Other: BS diminished throughout Cardio: Rate: regular rate Rhythm: regular rhythm GI: Inspection: non-distended Auscultation: normal bowel sounds : General: Yes bladder normal to palpation External Female Exam: normal external appearance Bimanual exam- vagina & uterus: bladder normal to palpation Urinary Catheter: Urinary Catheter: patent and draining and urine clear Skin: General skin exam: normal color and no rashes or lesions noted Neuro: Speech: normal speech Motor exam (neuro): Normal motor muscle tone present throughout Sensory Exam: normal sensation Other: She is is a bit forgetful and repetitive Extrem: Other: RLL is splinted and casted, C/D/I, PMS intact Psych: Mental Status: mental status grossly normal Affect: normal affect Objective Data Vital Signs Vital Signs: Vital Signs - 24 hr 11/12/24 14:00 11/12/24 20:00 11/12/24 21:00 Temperature 97.7 F Pulse Rate 83 82 Respiratory Rate 20 20 Blood Pressure 148/61 H Pulse Oximetry 100 100 98 Oxygen Delivery Nasal Cannula Nasal Cannula Oxygen Flow Rate 2.5 2 Fraction of Inspired Oxygen 28 11/12/24 22:00 11/13/24 06:00 11/13/24 08:09 Temperature 97.8 F 98.1 F Pulse Rate 74 89 Respiratory Rate 18 18 18 Blood Pressure 141/56 H 143/56 H Pulse Oximetry 100 100 97 Oxygen Delivery Nasal Cannula Oxygen Flow Rate 3 Fraction of Inspired Oxygen 11/13/24 08:17 Temperature Pulse Rate Respiratory Rate Blood Pressure Pulse Oximetry 97 Oxygen Delivery Nasal Cannula Oxygen Flow Rate 2.5 Fraction of Inspired Oxygen 30 Intake/Output Intake/Output: Intake & Output 11/10/24 11/11/24 11/12/24 11/13/24 23:59 23:59 23:59 23:59 Intake Total 240 440 Output Total 0 1800 502 Balance 240 -1360 -502 Meds/Results Medications: Active Medications Generic Name Dose Route Start Last Admin Trade Name Freq PRN Reason Stop Dose Admin Acetaminophen 650 mg 11/11/24 10:57 Acetaminophen 325 Mg Tablet PO Q4H PRN Mild Pain (1-3) or Fever Hydrocodone Bitart/Acetaminophen 1 tab 11/11/24 10:57 11/13/24 05:27 Hydrocodone/Acetaminophen (*Crx) 5-325 Mg Tablet PO 1 tab Q4H PRN Administration Pain Rated 4-6 Morphine Sulfate 2 mg 11/11/24 10:57 Morphine Sulfate (*Crx) 2 Mg/Ml Inj IV PUSH Q2H PRN Pain Rated 7-10 Ondansetron HCl 4 mg 11/11/24 10:57 Ondansetron Inj 4 Mg/2 Ml Vial IV PUSH Q4H PRN Nausea Radiology Results: ITS Impressions Chest X-Ray 11/11/24 06:54 IMPRESSION: 1: NO ACUTE CARDIOPULMONARY DISEASE. Ankle X-Ray 11/11/24 09:28 Impression: 1: Significantly improved alignment of bimalleolar fractures. Head CT 11/11/24 09:55 IMPRESSION: 1. No acute intracranial abnormality. Labs Labs: Laboratory Results - last 24 hr 11/12/24 11/13/24 10:13 04:59 WBC 9.0 RBC 3.97 L Hgb 11.7 L Hct 39.0 MCV 98.2 MCH 29.5 MCHC 30.0 L RDW 13.2 Plt Count 114 L MPV 9.1 Immature Gran % (Auto) 0.6 H Neut % (Auto) 72.2 Lymph % (Auto) 10.7 L [place] % (Auto) 10.4 H Eos % (Auto) 5.8 H Baso % (Auto) 0.3 Lymph # (Auto) 0.96 [place] # (Auto) 0.9 H Eos # (Auto) 0.5 H Baso # (Auto) 0.0 Abs Immat Gran (auto) 0.05 H Absolute Neuts (auto) 6.5 Absolute Nucleated RBC 0.000 Nucleated RBC % 0.0 Sodium 141 Potassium 4.3 Chloride 101 Carbon Dioxide 33 H Anion Gap 7 BUN 20 H Creatinine 0.99 Estim Creat Clear Calc 42 Estimated GFR 54 L Glucose 83 Calcium 8.6 Total Bilirubin 0.8 AST 23 ALT 17 Alkaline Phosphatase 67 Total Protein 6.0 L Albumin 3.6 Urine Color Yellow Urine Appearance Clear Urine pH 6.0 Ur Specific [place] 1.012 Urine Protein 1+ H Urine Glucose (UA) Negative Urine Ketones Trace H Ur Blood (Man) 3+ H Urine Nitrate Negative Urine Bilirubin Negative Urine Urobilinogen 0.2 Leukocyte Esterase Rfl 2+ H Urine RBC 21-50 H Urine WBC 21-50 H Ur Squamous Epith Cells None seen Urine Bacteria None seen Urine Casts 0-2 Quality VTE Prophylaxis VTE prophylaxis: mechanical ordered
[2024-11-13] MEDS: carvediloL 12.5 MG TABLET PO (10:11)
[2024-11-13] MEDS: CALCIUM/VITAMIN D 500 MG/5 MCG (200 I.U.) TABLET PO ×2 (10:11→16:43)
[2024-11-13] MEDS: PANTOPRAZOLE 40 MG TABLET PO (10:11)
[2024-11-13] MEDS: DOCUSATE SODIUM 100 MG CAPSULE PO ×2 (10:12→16:43)
[2024-11-13] MEDS: VALSARTAN 160 MG TABLET 320 MG PO (10:12)
[2024-11-13] MEDS: FUROSEMIDE 20 MG TABLET PO (10:12)
[2024-11-13] MEDS: ATORVASTATIN 40 MG TABLET 80 MG PO (20:13)
[2024-11-14] VITALS (7 sets, daily range): BP systolic 100–110; BP diastolic 40–56; PULSE 62–72; RESP 16–20; TEMP 35.9–36.5; O2SAT 97–100
[2024-11-14] MEDS: HYDROcodone/acetaminophen (*CRX) 5-325 MG TABLET 1 TAB PO ×2 (05:18→11:24)
[2024-11-14 05:24] LABS: Basophils Percent Auto 0.3 % (0.2-1.2); Eosinophils Absolute Auto 0.5 K/mm3 (0-0.3); Hematocrit 35.6 % (37.0-47.0); Hemoglobin 10.8 g/dL (12.0-15.0); Immature Granulocyte Absolute 0.02 K/mm3 (0.00-0.031); Immature Granulocyte Percent A 0.3 % (0-0.5); Lymphocytes Absolute Auto 1.23 K/mm3 (0.9-3.2); Lymphocytes Percent Auto 15.5 % (18.3-44.2); Mean Corpuscular HGB Conc 30.3 g/dl (32-36); Mean Corpuscular Hemoglobin 29.8 pg (26-34); Mean Corpuscular Volume 98.1 fl (80-100); Mean Platelet Volume 9.5 fl (7.4-10.4); Monocytes Absolute Auto 0.8 K/mm3 (0.1-0.6); Monocytes Percent Auto 10.6 % (2.6-8.5); Neutrophils Absolute Auto 5.4 K/mm3 (1.3-6.7); Neutrophils Percent Auto 67.3 % (45.5-73.1); Platelet Count Result 124 k/mm3 (150-375); Red Blood Count 3.63 M/mm3 (4.2-5.4); Red Cell Distribution Width 13.3 % (11.5-14.5)
[2024-11-14 05:42] LABS: Alanine Aminotransferase 13 U/L (6-35); Albumin Level 3.5 g/dL (3.5-5.1); Alkaline Phosphatase 59 U/L (38-126); Anion Gap 5 mmol/L (4-12); Aspartate Amino Transferase 22 U/L (14-36); Bilirubin,Total 0.7 mg/dL (0.2-1.3); Blood Urea Nitrogen 31 mg/dL (7-17); Calcium 8.7 mg/dL (8.4-10.2); Carbon Dioxide 33 mmol/L (22-30); Chloride 101 mmol/L (98-107); Estimated CRCL calculation 35 ml/min; Estimated Glomerular Filt Rate 44; Glucose 101 mg/dL (65-110); Potassium 4.3 mmol/L (3.4-5.0); Sodium 139 mmol/L (137-145)
[2024-11-14 05:43] LABS: NT Pro B Type Natriuretic Pept 271 pg/mL (19.9-100)
--- NOTE | 2024-11-14 07:15 | PM.IMPN ---
Progress Note: A&P Assessment and Plan (1) Bimalleolar fracture of right ankle: Code(s): S82.841A - Displaced bimalleolar fracture of right lower leg, initial encounter for closed fracture Status: Acute Assessment and Plan: Radiographs showed displaced, by malleolar fracture which was reduced in the ED. -Per nursing on 11/12, ortho contacted at request of pt because she was hungry. Ortho reports that there was a miscommunication and that he would not perform surgery (if needed) for a number of days due to pt swelling. NPO cancelled, heart healthy diet resumed. -Ortho rounds on 11/12: Given the patient's fracture dislocation, I would like to wait until the swelling decreases before performing surgery. I do believe that she will benefit from having surgical fixation at the fracture. I anticipate that she may be ready for surgery Wednesday of this week. -Pain control analgesia ordered, controlling the pain per pt (2) Urinary retention: Code(s): R33.9 - Retention of urine, unspecified Status: Acute Assessment and Plan: Galvin catheter in place with strict I&O -Creat from 1.31 in ED to 1.18 today which looks to be more of her baseline, will continue to trend -UC pending 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 Qualified Code(s): I50.42 - Chronic combined systolic (congestive) and diastolic (congestive) heart failure Code(s): I50.40 - Unspecified combined systolic (congestive) and diastolic (congestive) heart failure Status: Acute Assessment and Plan: Restarted Lasix / given kidney labs improving, will continue to assess pt volume status -Adding on BNP to labs for 6/2 AM draw, 271 -Pt not c/o SOB, CP, or BLE but per daughters, pt looks as if she is having some difficulty breathing, like she does at home when she skips her Lasix pills (5) Hypertension: Qualifiers: Hypertension type: primary hypertension Qualified Code(s): I10 - Essential (primary) hypertension Code(s): I10 - Essential (primary) hypertension Status: Acute Assessment and Plan: Current BP 110/49 -Restarted home meds 11/13, will continue to trend BP measurements (6) Chronic obstructive pulmonary disease: Code(s): J44.9 - Chronic obstructive pulmonary disease, unspecified Status: Acute Assessment and Plan: No acute issues, remains on her home 2 L O2 (baseline per daughter is 2-3L at home with exertion, she does not use it at night) (7) Chronic respiratory failure with hypoxia, on home oxygen therapy: Code(s): J96.11 - Chronic respiratory failure with hypoxia; Z99.81 - Dependence on supplemental oxygen Status: Acute Assessment and Plan: See above. Plan Heart healthy diet until made NPO by ortho, pain control, pending UC, ortho recs for surgery later this week d/t swelling, continue daily labs Subjective Date/time seen: 11/14/24 1233 Interval history: Pt is a 79-year-old female smoker with hx of dementia, chronic respiratory failure with hypoxia on home oxygen (2-3L baseline), COPD, HTN, HLD, combined systolic and diastolic congestive heart failure, and deep venous thrombosis who presented to the ED via EMS from home for evaluation of R ankle pain after a fall on 11/11. She got up to use the bathroom in the middle of the night and unfortunately tripped on her oxygen tubing, landing on her right side with immediate pain in her R ankle. She denies head trauma and LOC and she did not sustain any other injuries aside from her R ankle. She denies fever, chills, sweats, cold and flu symptoms, chest pain, pleuritic pain, palpitations, shortness of breath, cough, cold and flu symptoms, nausea, vomiting, diarrhea, and dysuria. No numbness or tingling in the right foot. In the ED: Vital signs were stable on arrival. Radiographs of the right ankle showed displaced bimalleolar fractures which were reduced. She is being admitted in this setting for pain control and orthopedic evaluation. 11/12: Upon examination today, pt's x2 daughters at the bedside, she lives alone but her daughters check in on her daily. She pt reports that the pain is controlled with the pain medication, but at its worst, it is 7/10. PMS intact today to RLE. Pt denies CP, SOB, or any swelling issues with regard to holding her lasix. Pt continues to be NPO incase of surgery, ortho consult pending. Pt tells me that her O2 baseline requirement is 2-3L, mainly with exertion, rarely at night, but, she tends to keep the NC around her neck when she sleeps, so , this may explain the fall (per daughters). Pt with no other complaints. 11/13: Pt resting comfortably in bed today and reports that she only feels pain when she moves her leg. Pt's daughters at the bedside. Updated on the plan which they knew via ortho, probable surgery not until /Wednesday due to pt leg swelling. Pt and daughters also report today that pt stopped smoking x2 years ago after a PNA scare. Pt continues to work with PT/OT. Pending . 11/14: Pt sitting in the chair upon visit. Pt continues to be stable and reports her pain is under control. Continue with the plan for surgical intervention later this week per ortho. Review of Systems Review of Systems: 12 systems were reviewed and are negative except for as per HPI. Exam Const: General: comfortable and no acute distress Other: +Obese HENMT: Face/Nose/Sinus: Normal nares present Mouth: Yes moist mucous membranes Eyes: General: appearance normal, both eyes and all related structures Sclera: sclerae normal Neck: Neck: supple and no JVD Resp: Effort & Inspection: normal respiratory effort (on 2 L NC O2) Other: BS diminished throughout Cardio: Rate: regular rate Rhythm: regular rhythm GI: Inspection: non-distended Auscultation: normal bowel sounds : General: Yes bladder normal to palpation Urinary Catheter: Urinary Catheter: patent and draining and urine clear Skin: General skin exam: normal color and no rashes or lesions noted Neuro: Speech: normal speech Motor exam (neuro): Normal motor muscle tone present throughout Sensory Exam: normal sensation Other: She is is a bit forgetful and repetitive Extrem: Other: RLL is splinted and casted, C/D/I, PMS intact Psych: Mental Status: mental status grossly normal Affect: normal affect Objective Data Vital Signs Vital Signs: Vital Signs - 24 hr 11/13/24 08:09 11/13/24 08:17 11/13/24 08:45 Temperature Pulse Rate Respiratory Rate 18 Blood Pressure Pulse Oximetry 97 97 Oxygen Delivery Nasal Cannula Nasal Cannula Nasal Cannula Oxygen Flow Rate 3 2.5 3 Fraction of Inspired Oxygen 30 11/13/24 09:05 11/13/24 10:11 11/13/24 14:00 Temperature 97.5 F L Pulse Rate 88 73 Respiratory Rate 20 Blood Pressure 102/46 L Pulse Oximetry 100 Oxygen Delivery Nasal Cannula Oxygen Flow Rate 3 Fraction of Inspired Oxygen 11/13/24 19:54 11/13/24 21:02 11/13/24 21:40 Temperature 97.8 F Pulse Rate 69 Respiratory Rate 18 Blood Pressure 112/50 L Pulse Oximetry 100 100 97 Oxygen Delivery Nasal Cannula Nasal Cannula Oxygen Flow Rate 2.5 3 Fraction of Inspired Oxygen 30 11/14/24 04:03 Temperature 97.7 F Pulse Rate 71 Respiratory Rate 18 Blood Pressure 110/49 L Pulse Oximetry 98 Oxygen Delivery Oxygen Flow Rate Fraction of Inspired Oxygen Intake/Output Intake/Output: Intake & Output 11/11/24 11/12/24 11/13/24 11/14/24 23:59 23:59 23:59 23:59 Intake Total 240 440 760 120 Output Total 0 1800 852 250 Balance 240 -1360 -92 -130 Meds/Results Medications: Active Medications Generic Name Dose Route Start Last Admin Trade Name Freq PRN Reason Stop Dose Admin Acetaminophen 650 mg 11/11/24 10:57 Acetaminophen 325 Mg Tablet PO Q4H PRN Mild Pain (1-3) or Fever Hydrocodone Bitart/Acetaminophen 1 tab 11/11/24 10:57 11/14/24 05:18 Hydrocodone/Acetaminophen (*Crx) 5-325 Mg Tablet PO 1 tab Q4H PRN Administration Pain Rated 4-6 Alendronate Sodium 70 mg 11/15/24 06:30 Alendronate Sodium 70 Mg Tablet PO We@0630 [facility] Atorvastatin Calcium 80 mg 11/13/24 21:00 11/13/24 20:13 Atorvastatin 40 Mg Tablet PO 80 mg HS [facility] Administration Calcium Carbonate 500 mg 11/13/24 09:00 11/13/24 16:43 Calcium/Vitamin D 500 Mg/5 Mcg (200 I.U.) Tablet PO 500 mg BID MIGUEL Administration Carvedilol 12.5 mg 11/13/24 09:00 11/13/24 10:11 Carvedilol 12.5 Mg Tablet PO 12.5 mg DAILY MIGUEL Administration Docusate Sodium 100 mg 11/13/24 09:00 11/13/24 16:43 Docusate Sodium 100 Mg Capsule PO 100 mg BID MIGUEL Administration Furosemide 20 mg 11/13/24 09:00 11/13/24 10:12 Furosemide 20 Mg Tablet PO 20 mg DAILY MIGUEL Administration Morphine Sulfate 2 mg 11/11/24 10:57 Morphine Sulfate (*Crx) 2 Mg/Ml Inj IV PUSH Q2H PRN Pain Rated 7-10 Ondansetron HCl 4 mg 11/11/24 10:57 Ondansetron Inj 4 Mg/2 Ml Vial IV PUSH Q4H PRN Nausea Pantoprazole Sodium 40 mg 11/13/24 09:00 11/13/24 10:11 Pantoprazole 40 Mg Tablet PO 40 mg QAM MIGUEL Administration Valsartan 320 mg 11/13/24 09:00 11/13/24 10:12 Valsartan 160 Mg Tablet PO 320 mg QAM MIGUEL Administration Radiology Results: ITS Impressions Chest X-Ray 11/11/24 06:54 IMPRESSION: 1: NO ACUTE CARDIOPULMONARY DISEASE. Ankle X-Ray 11/11/24 09:28 Impression: 1: Significantly improved alignment of bimalleolar fractures. Head CT 11/11/24 09:55 IMPRESSION: 1. No acute intracranial abnormality. Labs Labs: Laboratory Results - last 24 hr 11/14/24 04:56 WBC 8.0 RBC 3.63 L Hgb 10.8 L Hct 35.6 L MCV 98.1 MCH 29.8 MCHC 30.3 L RDW 13.3 Plt Count 124 L MPV 9.5 Immature Gran % (Auto) 0.3 Neut % (Auto) 67.3 Lymph % (Auto) 15.5 L [place] % (Auto) 10.6 H Eos % (Auto) 6.0 H Baso % (Auto) 0.3 Lymph # (Auto) 1.23 [place] # (Auto) 0.8 H Eos # (Auto) 0.5 H Baso # (Auto) 0.0 Abs Immat Gran (auto) 0.02 Absolute Neuts (auto) 5.4 Absolute Nucleated RBC 0.000 Nucleated RBC % 0.0 Sodium 139 Potassium 4.3 Chloride 101 Carbon Dioxide 33 H Anion Gap 5 BUN 31 H D Creatinine 1.18 H Estim Creat Clear Calc 35 Estimated GFR 44 L Glucose 101 Calcium 8.7 Total Bilirubin 0.7 AST 22 ALT 13 Alkaline Phosphatase 59 NT-Pro-B Natriuret Pep 271 H Total Protein 6.0 L Albumin 3.5 Quality VTE Prophylaxis VTE prophylaxis: mechanical ordered
[2024-11-14] MEDS: VALSARTAN 160 MG TABLET 320 MG PO (08:54)
[2024-11-14] MEDS: PANTOPRAZOLE 40 MG TABLET PO (08:54)
[2024-11-14] MEDS: CALCIUM/VITAMIN D 500 MG/5 MCG (200 I.U.) TABLET PO ×2 (08:54→16:25)
[2024-11-14] MEDS: carvediloL 12.5 MG TABLET PO (08:54)
[2024-11-14] MEDS: DOCUSATE SODIUM 100 MG CAPSULE PO ×2 (08:55→16:25)
[2024-11-14] MEDS: FUROSEMIDE 20 MG TABLET PO (08:55)
[2024-11-14] MEDS: ATORVASTATIN 40 MG TABLET 80 MG PO (20:21)
[2024-11-15] VITALS (8 sets, daily range): BP systolic 98–139; BP diastolic 41–52; PULSE 65–79; RESP 18–20; TEMP 36.3–36.6; O2SAT 91–99
[2024-11-15 05:38] LABS: Basophils Percent Auto 0.3 % (0.2-1.2); Eosinophils Absolute Auto 0.4 K/mm3 (0-0.3); Eosinophils Percent Auto 6.5 % (0-4.4); Hematocrit 35.3 % (37.0-47.0); Hemoglobin 10.5 g/dL (12.0-15.0); Immature Granulocyte Absolute 0.02 K/mm3 (0.00-0.031); Immature Granulocyte Percent A 0.3 % (0-0.5); Lymphocytes Absolute Auto 0.86 K/mm3 (0.9-3.2); Mean Corpuscular HGB Conc 29.7 g/dl (32-36); Mean Corpuscular Hemoglobin 29.2 pg (26-34); Mean Corpuscular Volume 98.1 fl (80-100); Mean Platelet Volume 9.2 fl (7.4-10.4); Monocytes Absolute Auto 0.6 K/mm3 (0.1-0.6); Monocytes Percent Auto 9.3 % (2.6-8.5); Neutrophils Absolute Auto 4.3 K/mm3 (1.3-6.7); Neutrophils Percent Auto 69.6 % (45.5-73.1); Platelet Count Result 135 k/mm3 (150-375); Red Cell Distribution Width 13.3 % (11.5-14.5); White Blood Count 6.1 K/mm3 (4.5-10.0)
[2024-11-15 05:54] LABS: Alanine Aminotransferase 13 U/L (6-35); Albumin Level 3.5 g/dL (3.5-5.1); Alkaline Phosphatase 58 U/L (38-126); Anion Gap 2 mmol/L (4-12); Aspartate Amino Transferase 22 U/L (14-36); Bilirubin,Total 0.6 mg/dL (0.2-1.3); Blood Urea Nitrogen 32 mg/dL (7-17); Calcium 8.7 mg/dL (8.4-10.2); Carbon Dioxide 36 mmol/L (22-30); Chloride 101 mmol/L (98-107); Estimated CRCL calculation 36 ml/min; Estimated Glomerular Filt Rate 44; Glucose 103 mg/dL (65-110); Potassium 4.2 mmol/L (3.4-5.0); Sodium 139 mmol/L (137-145)
[2024-11-15 06:23] LABS: Hypochromasia 1+; Platelet Estimate Adequate (Adequate); Schistocytes None Seen
[2024-11-15] MEDS: HYDROcodone/acetaminophen (*CRX) 5-325 MG TABLET 1 TAB PO ×3 (06:29→16:47)
[2024-11-15] MEDS: ALENDRONATE SODIUM 70 MG TABLET PO (06:30)
[2024-11-15] MEDS: carvediloL 12.5 MG TABLET PO (08:47)
[2024-11-15] MEDS: VALSARTAN 160 MG TABLET 320 MG PO (08:47)
[2024-11-15] MEDS: PANTOPRAZOLE 40 MG TABLET PO (08:47)
[2024-11-15] MEDS: FUROSEMIDE 20 MG TABLET PO (08:47)
[2024-11-15] MEDS: CALCIUM/VITAMIN D 500 MG/5 MCG (200 I.U.) TABLET PO ×2 (08:48→16:47)
[2024-11-15] MEDS: DOCUSATE SODIUM 100 MG CAPSULE PO ×2 (08:48→16:47)
--- NOTE | 2024-11-15 11:56 | PM.IMPN ---
Progress Note: A&P Assessment and Plan (1) Bimalleolar fracture of right ankle: Code(s): S82.841A - Displaced bimalleolar fracture of right lower leg, initial encounter for closed fracture Status: Acute Assessment and Plan: Radiographs showed displaced, by malleolar fracture which was reduced in the ED. -Per nursing on 11/12, ortho contacted at request of pt because she was hungry. Ortho reports that there was a miscommunication and that he would not perform surgery (if needed) for a number of days due to pt swelling. NPO cancelled, heart healthy diet resumed. -Ortho rounds on 11/12: Given the patient's fracture dislocation, I would like to wait until the swelling decreases before performing surgery. I do believe that she will benefit from having surgical fixation at the fracture. I anticipate that she may be ready for surgery Wednesday of this week. -Pain control analgesia ordered, controlling the pain per pt. -Surgery planned for Wednesday. (2) Urinary retention: Code(s): R33.9 - Retention of urine, unspecified Status: Acute Assessment and Plan: Galvin catheter in place with strict I&O -Creat from 1.31 in ED to 1.18 today which looks to be more of her baseline, will continue to trend -UC negative. 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 Qualified Code(s): I50.42 - Chronic combined systolic (congestive) and diastolic (congestive) heart failure Code(s): I50.40 - Unspecified combined systolic (congestive) and diastolic (congestive) heart failure Status: Acute Assessment and Plan: Restarted Lasix / given kidney labs improving, will continue to assess pt volume status -Adding on BNP to labs for 6/2 AM draw, 271 -Pt not c/o SOB, CP, or BLE but per daughters, pt looks as if she is having some difficulty breathing, like she does at home when she skips her Lasix pills (5) Hypertension: Qualifiers: Hypertension type: primary hypertension Qualified Code(s): I10 - Essential (primary) hypertension Code(s): I10 - Essential (primary) hypertension Status: Acute Assessment and Plan: Current BP 98/52. -Restarted home meds 11/13, will continue to trend BP measurements (6) Chronic obstructive pulmonary disease: Code(s): J44.9 - Chronic obstructive pulmonary disease, unspecified Status: Acute Assessment and Plan: No acute issues, remains on her home 2 L O2 (baseline per daughter is 2-3L at home with exertion, she does not use it at night) (7) Chronic respiratory failure with hypoxia, on home oxygen therapy: Code(s): J96.11 - Chronic respiratory failure with hypoxia; Z99.81 - Dependence on supplemental oxygen Status: Acute Assessment and Plan: See above. Subjective Date/time seen: 11/15/24 11:56 Interval history: Patient reports pain in right ankle pain and headache that is a 6, constant, and aching. Patient denies chest pain, palpitations, dizziness, nausea, or vomiting. Review of Systems Review of Systems: All systems reviewed & are unremarkable except as noted in HPI and below Exam Const: General: no acute distress and uncomfortable Resp: Effort & Inspection: normal respiratory effort Auscultation: diminished lung sounds Cardio: Rate: regular rate Rhythm: regular rhythm GI: GI Palp: Yes Soft to palpation Auscultation: normal bowel sounds Neuro: Speech: normal speech Extrem: Other: RLL is splinted and casted, C/D/I, PMS intact Psych: Mental Status: mental status grossly normal Affect: normal affect Objective Data Vital Signs Vital Signs: Vital Signs - 24 hr 11/14/24 11:58 11/14/24 14:00 11/14/24 20:20 Temperature 96.6 F L Pulse Rate 62 Respiratory Rate 16 Blood Pressure 108/56 L Pulse Oximetry 100 100 Oxygen Delivery Nasal Cannula Nasal Cannula Oxygen Flow Rate 3 2.5 Fraction of Inspired Oxygen 30 11/14/24 20:43 11/14/24 20:46 11/15/24 05:45 Temperature 97.4 F L 98 F Pulse Rate 63 66 Respiratory Rate 20 20 Blood Pressure 100/40 L 122/48 L Pulse Oximetry 100 97 99 Oxygen Delivery Nasal Cannula Oxygen Flow Rate 2 Fraction of Inspired Oxygen 11/15/24 08:45 11/15/24 08:47 Temperature Pulse Rate 70 Respiratory Rate Blood Pressure Pulse Oximetry 99 Oxygen Delivery Nasal Cannula Oxygen Flow Rate 2.5 Fraction of Inspired Oxygen Intake/Output Intake/Output: Intake & Output 11/12/24 11/13/24 11/14/24 11/15/24 23:59 23:59 23:59 23:59 Intake Total 440 760 940 320 Output Total 1800 852 450 350 Balance -1360 -92 490 -30 Meds/Results Medications: Active Medications Generic Name Dose Route Start Last Admin Trade Name Freq PRN Reason Stop Dose Admin Acetaminophen 650 mg 11/11/24 10:57 Acetaminophen 325 Mg Tablet PO Q4H PRN Mild Pain (1-3) or Fever Hydrocodone Bitart/Acetaminophen 1 tab 11/11/24 10:57 11/15/24 11:43 Hydrocodone/Acetaminophen (*Crx) 5-325 Mg Tablet PO 1 tab Q4H PRN Administration Pain Rated 4-6 Alendronate Sodium 70 mg 11/15/24 06:30 11/15/24 06:30 Alendronate Sodium 70 Mg Tablet PO 70 mg We@[id number] MIGUEL Administration Atorvastatin Calcium 80 mg 11/13/24 21:00 11/14/24 20:21 Atorvastatin 40 Mg Tablet PO 80 mg HS MIGUEL Administration Calcium Carbonate 500 mg 11/13/24 09:00 11/15/24 08:48 Calcium/Vitamin D 500 Mg/5 Mcg (200 I.U.) Tablet PO 500 mg BID MIGUEL Administration Carvedilol 12.5 mg 11/13/24 09:00 11/15/24 08:47 Carvedilol 12.5 Mg Tablet PO 12.5 mg DAILY MIGUEL Administration Docusate Sodium 100 mg 11/13/24 09:00 11/15/24 08:48 Docusate Sodium 100 Mg Capsule PO 100 mg BID MIGUEL Administration Furosemide 20 mg 11/13/24 09:00 11/15/24 08:47 Furosemide 20 Mg Tablet PO 20 mg DAILY MIGUEL Administration Morphine Sulfate 2 mg 11/11/24 10:57 Morphine Sulfate (*Crx) 2 Mg/Ml Inj IV PUSH Q2H PRN Pain Rated 7-10 Ondansetron HCl 4 mg 11/11/24 10:57 Ondansetron Inj 4 Mg/2 Ml Vial IV PUSH Q4H PRN Nausea Pantoprazole Sodium 40 mg 11/13/24 09:00 11/15/24 08:47 Pantoprazole 40 Mg Tablet PO 40 mg QAM MIGUEL Administration Valsartan 320 mg 11/13/24 09:00 11/15/24 08:47 Valsartan 160 Mg Tablet PO 320 mg QAM MIGUEL Administration Radiology Results: ITS Impressions Chest X-Ray 11/11/24 06:54 IMPRESSION: 1: NO ACUTE CARDIOPULMONARY DISEASE. Ankle X-Ray 11/11/24 09:28 Impression: 1: Significantly improved alignment of bimalleolar fractures. Head CT 11/11/24 09:55 IMPRESSION: 1. No acute intracranial abnormality. Labs Labs: Laboratory Results - last 24 hr 11/15/24 05:04 WBC 6.1 RBC 3.60 L Hgb 10.5 L Hct 35.3 L MCV 98.1 MCH 29.2 MCHC 29.7 L RDW 13.3 Plt Count 135 L MPV 9.2 Immature Gran % (Auto) 0.3 Neut % (Auto) 69.6 Lymph % (Auto) 14.0 L [place] % (Auto) 9.3 H Eos % (Auto) 6.5 H Baso % (Auto) 0.3 Lymph # (Auto) 0.86 L [place] # (Auto) 0.6 Eos # (Auto) 0.4 H Baso # (Auto) 0.0 Abs Immat Gran (auto) 0.02 Absolute Neuts (auto) 4.3 Absolute Nucleated RBC 0.000 Band Neutrophils % Not Reportable Nucleated RBC % 0.0 Platelet Estimate Adequate Hypochromasia 1+ Schistocytes None seen Sodium 139 Potassium 4.2 Chloride 101 Carbon Dioxide 36 H Anion Gap 2 L BUN 32 H Creatinine 1.18 H Estim Creat Clear Calc 36 Estimated GFR 44 L Glucose 103 Calcium 8.7 Total Bilirubin 0.6 AST 22 ALT 13 Alkaline Phosphatase 58 Total Protein 6.0 L Albumin 3.5 Quality VTE Prophylaxis VTE prophylaxis: mechanical ordered
--- NOTE | 2024-11-15 19:09 | P.PNOP_ITS ---
Progress Note: A&P Assessment and Plan (1) Closed fracture dislocation of ankle: Code(s): S82.899A - Other fracture of unspecified lower leg, initial encounter for closed fracture Status: Acute Plan 79 yr old female with Right ankle Fracture. - plan for ORIF tomorrow (). - discussed with Patient and her daughter today. - risks included but are not limited to infection, DVT, non-union, malunion, hardware irritation requiring additional surgery. - they agree to proceed. Subjective Subjective Date/Time Seen: 11/15/24 19:09 Principal diagnosis: Right Ankle Fracture Exam Narrative: Right Ankle in Posterior Splint Objective Data Vital Signs Vital Signs: Vital Signs - 24 hr 11/14/24 20:20 11/14/24 20:43 11/14/24 20:46 Temperature 36.3 C L Pulse Rate 63 Respiratory Rate 20 Blood Pressure 100/40 L Pulse Oximetry 100 100 97 Oxygen Delivery Nasal Cannula Nasal Cannula Oxygen Flow Rate 2.5 2 Fraction of Inspired Oxygen 30 11/15/24 05:45 11/15/24 08:45 11/15/24 08:47 Temperature 36.6 C Pulse Rate 66 70 Respiratory Rate 20 Blood Pressure 122/48 L Pulse Oximetry 99 99 Oxygen Delivery Nasal Cannula Oxygen Flow Rate 2.5 Fraction of Inspired Oxygen 11/15/24 09:30 11/15/24 15:20 11/15/24 15:29 Temperature 36.3 C L Pulse Rate 65 Respiratory Rate 18 Blood Pressure 100/41 L 98/52 L Pulse Oximetry 96 96 Oxygen Delivery Nasal Cannula Oxygen Flow Rate 2 Fraction of Inspired Oxygen 28 Intake/Output Intake/Output: Intake & Output 11/12/24 11/13/24 11/14/24 11/15/24 23:59 23:59 23:59 23:59 Intake Total 440 760 940 800 Output Total 1800 852 450 850 [facility] -1360 -92 490 -50 Meds/Results Medications: Active Medications Generic Name Dose Route Start Last Admin Trade Name Freq PRN Reason Stop Dose Admin Acetaminophen 650 mg 11/11/24 10:57 Acetaminophen 325 Mg Tablet PO Q4H PRN Mild Pain (1-3) or Fever Hydrocodone Bitart/Acetaminophen 1 tab 11/11/24 10:57 11/15/24 16:47 Hydrocodone/Acetaminophen (*Crx) 5-325 Mg Tablet PO 1 tab Q4H PRN Administration Pain Rated 4-6 Alendronate Sodium 70 mg 11/15/24 06:30 11/15/24 06:30 Alendronate Sodium 70 Mg Tablet PO 70 mg We@[id number] MIGUEL Administration Atorvastatin Calcium 80 mg 11/13/24 21:00 11/14/24 20:21 Atorvastatin 40 Mg Tablet PO 80 mg HS MIGUEL Administration Calcium Carbonate 500 mg 11/13/24 09:00 11/15/24 16:47 Calcium/Vitamin D 500 Mg/5 Mcg (200 I.U.) Tablet PO 500 mg BID MIGUEL Administration Carvedilol 12.5 mg 11/13/24 09:00 11/15/24 08:47 Carvedilol 12.5 Mg Tablet PO 12.5 mg DAILY MIGUEL Administration Docusate Sodium 100 mg 11/13/24 09:00 11/15/24 16:47 Docusate Sodium 100 Mg Capsule PO 100 mg BID MIGUEL Administration Furosemide 20 mg 11/13/24 09:00 11/15/24 08:47 Furosemide 20 Mg Tablet PO 20 mg DAILY MIGUEL Administration Morphine Sulfate 2 mg 11/11/24 10:57 Morphine Sulfate (*Crx) 2 Mg/Ml Inj IV PUSH Q2H PRN Pain Rated 7-10 Ondansetron HCl 4 mg 11/11/24 10:57 Ondansetron Inj 4 Mg/2 Ml Vial IV PUSH Q4H PRN Nausea Pantoprazole Sodium 40 mg 11/13/24 09:00 11/15/24 08:47 Pantoprazole 40 Mg Tablet PO 40 mg QAM MIGUEL Administration Valsartan 320 mg 11/13/24 09:00 11/15/24 08:47 Valsartan 160 Mg Tablet PO 320 mg QAM MIGUEL Administration Radiology Results: ITS Impressions Chest X-Ray 11/11/24 06:54 IMPRESSION: 1: NO ACUTE CARDIOPULMONARY DISEASE. Ankle X-Ray 11/11/24 09:28 Impression: 1: Significantly improved alignment of bimalleolar fractures. Head CT 11/11/24 09:55 IMPRESSION: 1. No acute intracranial abnormality. Labs Labs: Laboratory Results - last 24 hr 11/15/24 05:04 WBC 6.1 RBC 3.60 L Hgb 10.5 L Hct 35.3 L MCV 98.1 MCH 29.2 MCHC 29.7 L RDW 13.3 Plt Count 135 L MPV 9.2 Immature Gran % (Auto) 0.3 Neut % (Auto) 69.6 Lymph % (Auto) 14.0 L [place] % (Auto) 9.3 H Eos % (Auto) 6.5 H Baso % (Auto) 0.3 Lymph # (Auto) 0.86 L [place] # (Auto) 0.6 Eos # (Auto) 0.4 H Baso # (Auto) 0.0 Abs Immat Gran (auto) 0.02 Absolute Neuts (auto) 4.3 Absolute Nucleated RBC 0.000 Band Neutrophils % Not Reportable Nucleated RBC % 0.0 Platelet Estimate Adequate Hypochromasia 1+ Schistocytes None seen Sodium 139 Potassium 4.2 Chloride 101 Carbon Dioxide 36 H Anion Gap 2 L BUN 32 H Creatinine 1.18 H Estim Creat Clear Calc 36 Estimated GFR 44 L Glucose 103 Calcium 8.7 Total Bilirubin 0.6 AST 22 ALT 13 Alkaline Phosphatase 58 Total Protein 6.0 L Albumin 3.5
[2024-11-15] MEDS: ATORVASTATIN 40 MG TABLET 80 MG PO (20:39)
[2024-11-16] VITALS (17 sets, daily range): BP systolic 109–173; BP diastolic 37–75; PULSE 64–108; RESP 13–22; TEMP 36.3–37.3; O2SAT 91–99
[2024-11-16] MEDS: MORPHINE SULFATE (*CRX) 2 MG/ML INJ IV PUSH ×4 (00:18→20:15)
[2024-11-16 05:11] LABS: Basophils Percent Auto 0.3 % (0.2-1.2); Eosinophils Absolute Auto 0.4 K/mm3 (0-0.3); Eosinophils Percent Auto 6.7 % (0-4.4); Hematocrit 32.2 % (37.0-47.0); Hemoglobin 9.7 g/dL (12.0-15.0); Immature Granulocyte Absolute 0.03 K/mm3 (0.00-0.031); Immature Granulocyte Percent A 0.5 % (0-0.5); Immature Platelet Fraction Pct 1.7 % (0.9-11.2); Lymphocytes Absolute Auto 1.13 K/mm3 (0.9-3.2); Lymphocytes Percent Auto 18.6 % (18.3-44.2); Mean Corpuscular HGB Conc 30.1 g/dl (32-36); Mean Corpuscular Volume 99.7 fl (80-100); Mean Platelet Volume 9.6 fl (7.4-10.4); Monocytes Absolute Auto 0.7 K/mm3 (0.1-0.6); Monocytes Percent Auto 10.9 % (2.6-8.5); Neutrophils Absolute Auto 3.8 K/mm3 (1.3-6.7); Platelet Count Result 141 k/mm3 (150-375); Red Blood Count 3.23 M/mm3 (4.2-5.4); Red Cell Distribution Width 13.3 % (11.5-14.5); White Blood Count 6.1 K/mm3 (4.5-10.0)
[2024-11-16 05:23] LABS: Alanine Aminotransferase 11 U/L (6-35); Albumin Level 3.4 g/dL (3.5-5.1); Alkaline Phosphatase 57 U/L (38-126); Anion Gap 4 mmol/L (4-12); Aspartate Amino Transferase 22 U/L (14-36); Bilirubin,Total 0.6 mg/dL (0.2-1.3); Blood Urea Nitrogen 33 mg/dL (7-17); Calcium 8.4 mg/dL (8.4-10.2); Carbon Dioxide 32 mmol/L (22-30); Chloride 102 mmol/L (98-107); Estimated CRCL calculation 41 ml/min; Estimated Glomerular Filt Rate 52; Glucose 107 mg/dL (65-110); Potassium 4.2 mmol/L (3.4-5.0); Sodium 138 mmol/L (137-145); Total Protein 5.9 g/dL (6.3-8.2)
--- NOTE | 2024-11-16 07:54 | ECG_ITS ---
Test Date: 2024-11-16 08:12:12 Measurements Intervals [place] Rate: 60 P: 66 IA: 238 QRS: 61 QRSD: 149 T: 35 QT: 433 QTc: 436 Interpretive Statements SINUS RHYTHM WITH FIRST DEGREE AV BLOCK RIGHT BUNDLE BRANCH BLOCK ABNORMAL ECG No previous ECG available for comparison Electronically Signed On 11-16-2024 09:03:02 CDT by Nic Harris D.O.
[2024-11-16] MEDS: carvediloL 12.5 MG TABLET PO (09:06)
[2024-11-16] MEDS: VALSARTAN 160 MG TABLET 320 MG PO (09:07)
--- NOTE | 2024-11-16 09:43 | WPDHPUPDATE1 ---
History and Physical Update Update Date/Time: 11/16/24 09:43 History and Physical has been reviewed, including an updated exam of the patient. There are NO changes in the patient's condition. Risks, benefits, and alternatives have been discussed and questions answered. Patient agrees to proceed with procedure. Right Ankle ORIF. Discussed with patient and daughter. - risks include, infection, DVT, hardware irritation requiring removal, nonunion, malunion, post traumatic arthritis.
--- NOTE | 2024-11-16 09:44 | WPDANESEPPF ---
Anes - Initial Pre Proc Eval Procedure: Operation Date: 11/16/24 11:00 Proposed Procedures p Open Reduction Internal Fixation Right Ankle - Chung Casillas MD Date/Time: 11/16/24 09:44 Surgeon: Curly Corea MD Pre Op Diagnosis: ankle fracture right Patient Data Age: 79 Gender: F Height: 1.65 m Weight: 79.8 kg Last Vital Signs Temp 98.3 F 11/16/24 09:10 Pulse 67 11/16/24 09:10 Resp 18 11/16/24 09:10 BP 128/63 11/16/24 09:10 Pulse Ox 93 11/16/24 09:10 O2 Del Method Nasal Cannula 11/16/24 09:10 O2 Flow Rate 3 11/16/24 09:10 FiO2 28 11/15/24 09:30 Allergies Allergy/AdvReac Type Severity Reaction Status Date / Time No Known Allergies Allergy Unknown Verified 11/16/24 09:34 Home Medications ?Medication ?Instructions ?Recorded ?Confirmed ?Type furosemide 20 mg tablet 20 mg PO DAILY 30 days #30 tabs 09/23/19 11/11/24 Rx atorvastatin 40 mg tablet 80 mg PO HS 07/18/20 11/11/24 History carvedilol 6.25 mg tablet 12.5 mg PO DAILY 07/18/20 11/11/24 History alendronate 70 mg tablet 70 mg PO WEEKLY 01/10/23 11/11/24 History calcium 600 mg (as 1 tablet PO BID 01/10/23 11/11/24 History carbonate)-vitamin D3 10 mcg (400 unit) tablet omeprazole 20 mg capsule,delayed 20 mg PO DAILY 01/10/23 11/11/24 History release ipratropium 20 mcg-albuterol 100 1 puff inhalation QID #4 grams 01/15/23 11/11/24 Rx mcg/actuation mist for inhalation (Combivent Respimat) valsartan 320 mg tablet 320 mg PO DAILY #30 tabs 01/15/23 11/11/24 Rx Laboratory Tests 11/16/24 04:50 WBC 6.1 K/mm3 (4.5-10.0) RBC 3.23 L M/mm3 (4.2-5.4) Hgb 9.7 L g/dL (12.0-15.0) Hct 32.2 L % (37.0-47.0) MCV 99.7 fl (80-100) MCH 30.0 pg (26-34) MCHC 30.1 L g/dl (32-36) RDW 13.3 % (11.5-14.5) Plt Count 141 L k/mm3 (150-375) MPV 9.6 fl (7.4-10.4) Immature Gran % (Auto) 0.5 % (0-0.5) Neut % (Auto) 63.0 % (45.5-73.1) Lymph % (Auto) 18.6 % (18.3-44.2) [place] % (Auto) 10.9 H % (2.6-8.5) Eos % (Auto) 6.7 H % (0-4.4) Baso % (Auto) 0.3 % (0.2-1.2) Lymph # (Auto) 1.13 K/mm3 (0.9-3.2) [place] # (Auto) 0.7 H K/mm3 (0.1-0.6) Eos # (Auto) 0.4 H K/mm3 (0-0.3) Baso # (Auto) 0.0 K/mm3 (0.0-0.1) Abs Immat Gran (auto) 0.03 K/mm3 (0.00-0.031) Absolute Neuts (auto) 3.8 K/mm3 (1.3-6.7) Absolute Nucleated RBC 0.000 K/mm3 (0.0-0.012) Nucleated RBC % 0.0 % (0.0-0.2) % Immature Plt Fraction 1.7 % (0.9-11.2) Sodium 138 mmol/L (137-145) Potassium 4.2 mmol/L (3.4-5.0) Chloride 102 mmol/L (98-107) Carbon Dioxide 32 H mmol/L (22-30) Anion Gap 4 mmol/L (4-12) BUN 33 H mg/dL (7-17) Creatinine 1.03 H mg/dL (0.7-1.0) Estim Creat Clear Calc 41 ml/min Estimated GFR 52 L (59 - ) Glucose 107 mg/dL (65-110) Calcium 8.4 mg/dL (8.4-10.2) Total Bilirubin 0.6 mg/dL (0.2-1.3) AST 22 U/L (14-36) ALT 11 U/L (6-35) Alkaline Phosphatase 57 U/L (38-126) Total Protein 5.9 L g/dL (6.3-8.2) Albumin 3.4 L g/dL (3.5-5.1) Patient hx anesthesia problems: none Family hx anesthesia problems: none Results Review: All pre-operative results and documents have been reviewed as part of the pre-operative evaluation. [facility] Past Medical History Medical History (Updated 11/13/24 @ 15:18 by Luanne Mon APRN) Chronic respiratory failure with hypoxia, on home oxygen therapy Chronic obstructive pulmonary disease Pulmonary hypertension Combined systolic and diastolic congestive heart failure Echocardiogram in September 2019 showed normal LV size with moderate concentric hypertrophy, moderately severe global LV dysfunction with no focal wall motion abnormalities, visually estimated EF of 30 to 35%, and grade 2 diastolic dysfunction. Left leg DVT (09/2019) Hypertension Anxiety Cardiomyopathy Bladder cancer (04/2011) Status post transurethral resection of bladder tumor with fulguration. Surgical History Surgical History History of open reduction and internal fixation (ORIF) procedure (07/2020) Repair left distal radial fracture History of transurethral resection of bladder tumor (TURBT) (04/2011) History of tonsillectomy and adenoidectomy Family History Family History Mother Sepsis Father Lung cancer Black lung disease Sibling Leukemia Social History Social History Social History: Surrogate medical decision maker: Elisabet Adams, daughter. Code status: Full code. Smoking packs per day: 0.5 Smoking cigarettes per day: 10.0 Years smoked: 45 Smoking pack-years: 22.50 Smoking status: Current every day smoker Alcohol intake: never Substance use: never Do You Feel Safe in your Home?: Yes Lack of Transportation: No Lack of Food: Never True Current Housing: I Have Housing Concerned About Future Housing: No Difficulty Paying Gas/Electric Bills: No Difficulty Paying for Meds: No Currently Unemployed: No Education: High School Diploma/GED Difficulty w/ Childcare or Family Care: No Living arrangements: with family Additional living arrangements comments: as of 2018. She has 2 daughters. Occupation/Education: retired Additional occupation/education comments: Retired from a [employer]. Spiritual care concerns: No Agree to blood products: Yes [place] - Ev[place] Final PreProcedure Day of Procedure 11/16/24 09:44 Patient weight: obese Heart: regular rate and rhythm Lungs: clear to auscultation Airway: Mallampati scale class II Neurological: alert and oriented Last oral intake: >/= 8 hours ASA classification: III Emergent: no Anesthetic plan: proceed Anesthesia type and monitoring: general LMA and standard monitoring Results Review: All pre-operative results and documents have been reviewed as part of the pre-operative evaluation. Informed Consent: The patient's anesthetic plan and its attendant risks and benefits were discussed with the patient/family/POA. Questions were solicited and answers provided to the satisfaction of the patient/family/POA.
--- NOTE | 2024-11-16 09:46 | SUR.PREOP ---
HAIR REMOVAL DEFERRED DUE TO SPLINT
[2024-11-16] MEDS: ceFAZolin 2 GM/D5W 50 ML 2 GM/50 ML BAG IVPB (09:56)
[2024-11-16] MEDS: LIDO 1%/EPINEPHRINE 1:100,000 20 ML VIAL 30 ML INFILTRATE (10:21)
[2024-11-16] MEDS: ceFAZolin SODIUM 1 GM VIAL (10:22)
--- NOTE | 2024-11-16 10:29 | PCPTNOTE ---
Attempted to see patient for PT, however patient out of the room for procedure and unable to be seen for PT at this time.
--- NOTE | 2024-11-16 10:35 | PCOTNOTE ---
Patient out od the room at this time. Per RN, Patient in surgery for her Right ankle.
--- NOTE | 2024-11-16 12:35 | P.OP_ITS ---
Procedure Note - Detailed Date of Procedure 11/16/24 Pre-op Diagnosis ankle fracture right trimalleolar Post-op Diagnosis Same Procedure Performed Right Ankle Trimalleolar Fracture open reduction internal fixation Surgeon Chung Casillas MD Anesthesia General Indications Unstable Right Ankle fracture Findings Unstable Right Ankle Fracture Description of Procedure After obtaining consent from patient and 2 daughters, the patient was then taken to the OR and placed in the supine position. - Anesthesia initiated. - Right LE was then prepped and draped in a standard sterile fashion. - Esmarch Exsanguination used, tourniquet elevated to 280mm [place]. Time out performed to verify correct patient, correct side of surgery, correct surgery, and IV abx administered within 1 hour of incision time. - Lateral incision made, dissection carried down to identify the fracture site. The SPN was then identified and avoided during the entire procedure. - fracture site was thoroughly debrided. - anatomic reduction was then performed with a reduction clamp. - I then placed an AP lag screw to stabilize the fracture site. - a lateral plate was placed with multiple screws proximal and distal to fracture site. - fluoroscopy was then used to verify reduction. I then turned my attention to the medial side. - incision was made. - dissection carried down to identify the fracture site. - the saphenous nerve and vein were avoided and identified. - anatomic reduction obtained and maintained with a reduction clamp. - 2 guide wires were then placed in retrograde fashion. - fluoroscopy was then used to verify positioning. - 2 partially threaded cancellous screws were then placed measuring 40mm. Fluoroscopy was then used to verify all hardware placement was well as reduction at the fracture sites. - stress testing was then performed to verify IO ligament stability. Both incision sites were then closed with 2-0 Vicryl and a running 3-0 Nylon suture. - incision sites were injected with Lidocaine with epinephrine. Instrument counts were accurate at end of case. Implants Smithers Avanza Pangea plate system Estimated Blood Loss 10 Urine Output 251 Drains No Packing No Pathology None sent Complications No immediate complications Condition Stable Disposition PACU
[2024-11-16] MEDS: ONDANSETRON INJ 4 MG/2 ML VIAL IV PUSH (13:40)
[2024-11-16] MEDS: DEXTROSE 5%/0.45% SOD CHL 1,000 ML 80 ML IV CONT (13:41)
--- NOTE | 2024-11-16 13:41 | PM.IMPN ---
Progress Note: A&P Assessment and Plan (1) Bimalleolar fracture of right ankle: Code(s): S82.841A - Displaced bimalleolar fracture of right lower leg, initial encounter for closed fracture Status: Acute Assessment and Plan: Radiographs showed displaced, by malleolar fracture which was reduced in the ED. -Per nursing on 11/12, ortho contacted at request of pt because she was hungry. Ortho reports that there was a miscommunication and that he would not perform surgery (if needed) for a number of days due to pt swelling. NPO cancelled, heart healthy diet resumed. -Ortho rounds on 11/12: Given the patient's fracture dislocation, I would like to wait until the swelling decreases before performing surgery. I do believe that she will benefit from having surgical fixation at the fracture. I anticipate that she may be ready for surgery Wednesday of this week. -Pain control analgesia ordered, controlling the pain per pt. -Surgery done today. D5 1/ NS @ 80 ml/hr. Clear liquid diet. Pain control. (2) Urinary retention: Code(s): R33.9 - Retention of urine, unspecified Status: Acute Assessment and Plan: Galvin catheter in place with strict I&O -Creat from 1.31 in ED to 1.03 today which looks to be more of her baseline, will continue to trend -UC negative. 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 Qualified Code(s): I50.42 - Chronic combined systolic (congestive) and diastolic (congestive) heart failure Code(s): I50.40 - Unspecified combined systolic (congestive) and diastolic (congestive) heart failure Status: Acute Assessment and Plan: Restarted Lasix /2 given kidney labs improving, will continue to assess pt volume status -Adding on BNP to labs for 6/2 AM draw, 271 -Pt not c/o SOB, CP, or BLE but per daughters, pt looks as if she is having some difficulty breathing, like she does at home when she skips her Lasix pills (5) Hypertension: Qualifiers: Hypertension type: primary hypertension Qualified Code(s): I10 - Essential (primary) hypertension Code(s): I10 - Essential (primary) hypertension Status: Acute Assessment and Plan: Current BP 110/51. -Restarted home meds 11/13, will continue to trend BP measurements (6) Chronic obstructive pulmonary disease: Code(s): J44.9 - Chronic obstructive pulmonary disease, unspecified Status: Acute Assessment and Plan: No acute issues, remains on her home 2 L O2 (baseline per daughter is 2-3L at home with exertion, she does not use it at night) (7) Chronic respiratory failure with hypoxia, on home oxygen therapy: Code(s): J96.11 - Chronic respiratory failure with hypoxia; Z99.81 - Dependence on supplemental oxygen Status: Acute Assessment and Plan: See above. Subjective Date/time seen: 11/16/24 13:41 Interval history: Patient had right ankle surgery today. Patient reports that pain is a 7, constant, and throbbing post surgery. Patient report nausea. Patient denies chest pain, palpitations, headache, dizziness, or shortness of breath. Review of Systems Review of Systems: All systems reviewed & are unremarkable except as noted in HPI and below Exam Const: General: no acute distress and uncomfortable Resp: Effort & Inspection: normal respiratory effort Auscultation: diminished lung sounds Cardio: Rate: regular rate Rhythm: regular rhythm GI: GI Palp: Yes Soft to palpation Auscultation: normal bowel sounds Neuro: Speech: normal speech Extrem: Other: RLL is splinted and casted, C/D/I, PMS intact. Psych: Mental Status: mental status grossly normal Affect: normal affect Other: A little groogy. Objective Data Vital Signs Vital Signs: Vital Signs - 24 hr 11/15/24 15:20 11/15/24 15:29 11/15/24 20:40 Temperature 97.4 F L Pulse Rate 65 Respiratory Rate 18 Blood Pressure 100/41 L 98/52 L Pulse Oximetry 96 91 Oxygen Delivery Nasal Cannula Oxygen Flow Rate 2.5 11/15/24 22:00 11/16/24 05:37 11/16/24 09:06 Temperature 97.6 F 97.4 F L Pulse Rate 79 72 80 Respiratory Rate 18 18 Blood Pressure 139/52 L 131/59 L Pulse Oximetry 91 92 Oxygen Delivery Oxygen Flow Rate 11/16/24 09:10 11/16/24 12:06 11/16/24 12:15 Temperature 98.3 F Pulse Rate 67 74 76 Respiratory Rate 18 17 16 Blood Pressure 128/63 138/46 L 137/59 L Pulse Oximetry 93 94 99 Oxygen Delivery Nasal Cannula Simple Face Mask Simple Face Mask Oxygen Flow Rate 3 8 8 11/16/24 12:30 11/16/24 12:45 11/16/24 13:00 Temperature Pulse Rate 77 72 74 Respiratory Rate 16 16 20 Blood Pressure 139/53 L 120/58 L 136/56 L Pulse Oximetry 98 95 95 Oxygen Delivery Simple Face Mask Nasal Cannula Nasal Cannula Oxygen Flow Rate 8 3 3 11/16/24 13:14 Temperature Pulse Rate 74 Respiratory Rate 13 Blood Pressure 125/56 L Pulse Oximetry 98 Oxygen Delivery Nasal Cannula Oxygen Flow Rate 3 Intake/Output Intake/Output: Intake & Output 11/13/24 11/14/24 11/15/24 11/16/24 23:59 23:59 23:59 23:59 Intake Total 760 940 800 50 Output Total 852 450 850 551 Balance -92 490 -50 -501 Meds/Results Medications: Active Medications Generic Name Dose Route Start Last Admin Trade Name Freq PRN Reason Stop Dose Admin Acetaminophen 650 mg 11/11/24 10:57 Acetaminophen 325 Mg Tablet PO Q4H PRN Mild Pain (1-3) or Fever Hydrocodone Bitart/Acetaminophen 1 tab 11/11/24 10:57 11/15/24 16:47 Hydrocodone/Acetaminophen (*Crx) 5-325 Mg Tablet PO 1 tab Q4H PRN Administration Pain Rated 4-6 Hydrocodone Bitart/Acetaminophen 1 tab 11/16/24 12:28 Hydrocodone/Acetaminophen (*Crx) 5-325 Mg Tablet PO Q3H PRN Pain Rated 4-6 Hydrocodone Bitart/Acetaminophen 2 tab 11/16/24 12:28 Hydrocodone/Acetaminophen (*Crx) 5-325 Mg Tablet PO Q6H PRN Pain Rated 7-10 Alendronate Sodium 70 mg 11/15/24 06:30 11/15/24 06:30 Alendronate Sodium 70 Mg Tablet PO 70 mg [id number] MIGUEL Administration Atorvastatin Calcium 80 mg 11/13/24 21:00 11/15/24 20:39 Atorvastatin 40 Mg Tablet PO 80 mg HS MIGUEL Administration Calcium Carbonate 500 mg 11/13/24 09:00 11/16/24 08:09 Calcium/Vitamin D 500 Mg/5 Mcg (200 I.U.) Tablet PO Not Given BID [facility] Carvedilol 12.5 mg 11/13/24 09:00 11/16/24 09:06 Carvedilol 12.5 Mg Tablet PO 12.5 mg DAILY [facility] Administration Docusate Sodium 100 mg 11/13/24 09:00 11/16/24 08:10 Docusate Sodium 100 Mg Capsule PO Not Given BID [facility] Fentanyl Citrate 25 mcg 11/16/24 09:45 Fentanyl Citrate Inj (*Crx) 100 Mcg/2 Ml Vial IV PUSH Q2M PRN Pain Furosemide 20 mg 11/13/24 09:00 11/16/24 08:10 Furosemide 20 Mg Tablet PO Not Given DAILY [facility] Lactated Ringer's 1,000 mls @ 30 mls/hr 11/16/24 09:45 Lr - Lactated Ringers Iv IV CONT .Q24H [facility] Lactated Ringer's 1,000 mls @ 30 mls/hr 11/16/24 09:45 Lr - Lactated Ringers Iv IV CONT .Q24H [facility] Dextrose/Sodium Chloride 1,000 mls @ 80 mls/hr 11/16/24 12:30 Dextrose 5% Sodium Chloride 0.45% IV CONT .[id number] [facility] Morphine Sulfate 2 mg 11/11/24 10:57 11/16/24 00:18 Morphine Sulfate (*Crx) 2 Mg/Ml Inj IV PUSH 2 mg Q2H PRN Administration Pain Rated 7-10 Ondansetron HCl 4 mg 11/11/24 10:57 Ondansetron Inj 4 Mg/2 Ml Vial IV PUSH Q4H PRN Nausea Ondansetron HCl 4 mg 11/16/24 09:45 Ondansetron Inj 4 Mg/2 Ml Vial IV PUSH ONCE PRN Nausea Pantoprazole Sodium 40 mg 11/13/24 09:00 11/16/24 08:11 Pantoprazole 40 Mg Tablet PO Not Given QAM [facility] Polyethylene Glycol 17 gm 11/17/24 09:00 Polyethylene Glycol 3350 17 Gm Powd.Pack PO QAM [facility] Senna/Docusate Sodium 2 tab 11/16/24 17:00 Senna/Docusate Sodium Tablet PO BID [facility] Valsartan 320 mg 11/13/24 09:00 11/16/24 09:07 Valsartan 160 Mg Tablet PO 320 mg QAM MIGUEL Administration Radiology Results: ITS Impressions Chest X-Ray 11/11/24 06:54 IMPRESSION: 1: NO ACUTE CARDIOPULMONARY DISEASE. Ankle X-Ray 11/11/24 09:28 Impression: 1: Significantly improved alignment of bimalleolar fractures. Head CT 11/11/24 09:55 IMPRESSION: 1. No acute intracranial abnormality. Intraoperative X-Ray 11/16/24 12:09 IMPRESSION: Fluoroscopy used during ORIF right ankle. Labs Labs: Laboratory Results - last 24 hr 11/16/24 04:50 WBC 6.1 RBC 3.23 L Hgb 9.7 L Hct 32.2 L MCV 99.7 MCH 30.0 MCHC 30.1 L RDW 13.3 Plt Count 141 L MPV 9.6 Immature Gran % (Auto) 0.5 Neut % (Auto) 63.0 Lymph % (Auto) 18.6 [place] % (Auto) 10.9 H Eos % (Auto) 6.7 H Baso % (Auto) 0.3 Lymph # (Auto) 1.13 [place] # (Auto) 0.7 H Eos # (Auto) 0.4 H Baso # (Auto) 0.0 Abs Immat Gran (auto) 0.03 Absolute Neuts (auto) 3.8 Absolute Nucleated RBC 0.000 Nucleated RBC % 0.0 % Immature Plt Fraction 1.7 Sodium 138 Potassium 4.2 Chloride 102 Carbon Dioxide 32 H Anion Gap 4 BUN 33 H Creatinine 1.03 H Estim Creat Clear Calc 41 Estimated GFR 52 L Glucose 107 Calcium 8.4 Total Bilirubin 0.6 AST 22 ALT 11 Alkaline Phosphatase 57 Total Protein 5.9 L Albumin 3.4 L Quality VTE Prophylaxis VTE prophylaxis: mechanical ordered
[2024-11-16] MEDS: ATORVASTATIN 40 MG TABLET 80 MG PO (20:11)
[2024-11-17] VITALS (10 sets, daily range): BP systolic 83–147; BP diastolic 44–57; PULSE 74–91; RESP 18–20; TEMP 36.4–36.8; O2SAT 90–98
[2024-11-17] MEDS: DEXTROSE 5%/0.45% SOD CHL 1,000 ML 80 ML IV CONT (01:48)
[2024-11-17 06:21] LABS: Basophils Percent Auto 0.3 % (0.2-1.2); Eosinophils Absolute Auto 0.2 K/mm3 (0-0.3); Eosinophils Percent Auto 1.9 % (0-4.4); Hematocrit 31.6 % (37.0-47.0); Hemoglobin 9.9 g/dL (12.0-15.0); Immature Granulocyte Absolute 0.02 K/mm3 (0.00-0.031); Immature Granulocyte Percent A 0.3 % (0-0.5); Lymphocytes Absolute Auto 0.65 K/mm3 (0.9-3.2); Lymphocytes Percent Auto 8.4 % (18.3-44.2); Mean Corpuscular HGB Conc 31.3 g/dl (32-36); Mean Corpuscular Hemoglobin 29.7 pg (26-34); Mean Corpuscular Volume 94.9 fl (80-100); Mean Platelet Volume 9.3 fl (7.4-10.4); Monocytes Absolute Auto 1.1 K/mm3 (0.1-0.6); Monocytes Percent Auto 14.3 % (2.6-8.5); Neutrophils Absolute Auto 5.8 K/mm3 (1.3-6.7); Neutrophils Percent Auto 74.8 % (45.5-73.1); Platelet Count Result 128 k/mm3 (150-375); Red Blood Count 3.33 M/mm3 (4.2-5.4); White Blood Count 7.7 K/mm3 (4.5-10.0)
[2024-11-17 06:31] LABS: Alanine Aminotransferase 11 U/L (6-35); Albumin Level 3.2 g/dL (3.5-5.1); Alkaline Phosphatase 59 U/L (38-126); Anion Gap 2 mmol/L (4-12); Aspartate Amino Transferase 24 U/L (14-36); Bilirubin,Total 0.6 mg/dL (0.2-1.3); Blood Urea Nitrogen 18 mg/dL (7-17); Calcium 8.2 mg/dL (8.4-10.2); Carbon Dioxide 33 mmol/L (22-30); Chloride 101 mmol/L (98-107); Estimated CRCL calculation 42 ml/min; Estimated Glomerular Filt Rate 51; Glucose 155 mg/dL (65-110); Potassium 4.5 mmol/L (3.4-5.0); Sodium 136 mmol/L (137-145); Total Protein 5.6 g/dL (6.3-8.2)
[2024-11-17] MEDS: DOCUSATE SODIUM 100 MG CAPSULE PO ×2 (08:33→16:06)
[2024-11-17] MEDS: VALSARTAN 160 MG TABLET 320 MG PO (08:33)
[2024-11-17] MEDS: FUROSEMIDE 20 MG TABLET PO (08:33)
[2024-11-17] MEDS: polyethylene glycoL 3350 17 GM POWD.PACK PO (08:33)
[2024-11-17] MEDS: PANTOPRAZOLE 40 MG TABLET PO (08:33)
[2024-11-17] MEDS: carvediloL 12.5 MG TABLET PO (08:33)
[2024-11-17] MEDS: SENNA/DOCUSATE SODIUM TABLET 2 TAB PO ×2 (08:34→16:06)
[2024-11-17] MEDS: CALCIUM/VITAMIN D 500 MG/5 MCG (200 I.U.) TABLET PO ×2 (08:34→16:06)
--- NOTE | 2024-11-17 08:38 | P.PNOP_ITS ---
Progress Note: A&P Assessment and Plan (1) Bimalleolar fracture of right ankle: Code(s): S82.841A - Displaced bimalleolar fracture of right lower leg, initial encounter for closed fracture Status: Acute Assessment and Plan: POD 1 Right Ankle ORIF - await placement at rehab facility - follow up with Dr Casillas in 2 weeks - strict non weight bearing Right Lower Extremity Plan POD 1 Right Ankle ORIF - await placement at rehab facility - follow up with Dr Casillas in 2 weeks - strict non weight bearing Right Lower Extremity Subjective Subjective Date/Time Seen: 11/17/24 08:38 Post Op day: 1 Principal diagnosis: Right Ankle ORIF Interval history: Pain well controlled Exam Narrative: Right Leg in Splint Objective Data Vital Signs Vital Signs: Vital Signs - 24 hr 11/16/24 09:06 11/16/24 09:10 11/16/24 12:06 Temperature 36.8 C Pulse Rate 80 67 74 Respiratory Rate 18 17 Blood Pressure 128/63 138/46 L Pulse Oximetry 93 94 Oxygen Delivery Nasal Cannula Simple Face Mask Oxygen Flow Rate 3 8 Fraction of Inspired Oxygen 11/16/24 12:15 11/16/24 12:30 11/16/24 12:45 Temperature Pulse Rate 76 77 72 Respiratory Rate 16 16 16 Blood Pressure 137/59 L 139/53 L 120/58 L Pulse Oximetry 99 98 95 Oxygen Delivery Simple Face Mask Simple Face Mask Nasal Cannula Oxygen Flow Rate 8 8 3 Fraction of Inspired Oxygen 11/16/24 13:00 11/16/24 13:13 11/16/24 13:14 Temperature 36.3 C L Pulse Rate 74 74 74 Respiratory Rate 20 22 H 13 Blood Pressure 136/56 L 116/46 L 125/56 L Pulse Oximetry 95 94 98 Oxygen Delivery Nasal Cannula Nasal Cannula Oxygen Flow Rate 3 3 Fraction of Inspired Oxygen 11/16/24 14:00 11/16/24 14:58 11/16/24 18:10 Temperature 36.3 C L 36.4 C L Pulse Rate 65 64 82 Respiratory Rate 20 18 16 Blood Pressure 109/37 L 110/51 L 173/61 H Pulse Oximetry 94 97 95 Oxygen Delivery Oxygen Flow Rate Fraction of Inspired Oxygen 11/16/24 20:00 11/16/24 20:58 11/16/24 21:11 Temperature 37.2 C Pulse Rate 108 H 108 H Respiratory Rate 20 20 Blood Pressure 154/63 H Pulse Oximetry 95 96 95 Oxygen Delivery Nasal Cannula Nasal Cannula Oxygen Flow Rate 2 2 Fraction of Inspired Oxygen 28 11/16/24 23:01 11/17/24 03:31 11/17/24 08:01 Temperature 37.3 C 36.7 C 36.8 C Pulse Rate 105 H 81 81 Respiratory Rate 20 20 18 Blood Pressure 145/75 H 127/57 L 134/44 L Pulse Oximetry 91 90 94 Oxygen Delivery Oxygen Flow Rate Fraction of Inspired Oxygen 11/17/24 08:33 Temperature Pulse Rate 80 Respiratory Rate Blood Pressure Pulse Oximetry Oxygen Delivery Oxygen Flow Rate Fraction of Inspired Oxygen Intake/Output Intake/Output: Intake & Output 11/14/24 11/15/24 11/16/24 11/17/24 23:59 23:59 23:59 23:59 Intake Total 940 666 910 3736 Output Total 450 850 926 800 Balance 682 -50 -147 251 Meds/Results Medications: Active Medications Generic Name Dose Route Start Last Admin Trade Name Freq PRN Reason Stop Dose Admin Acetaminophen 650 mg 11/11/24 10:57 Acetaminophen 325 Mg Tablet PO Q4H PRN Mild Pain (1-3) or Fever Hydrocodone Bitart/Acetaminophen 1 tab 11/11/24 10:57 11/15/24 16:47 Hydrocodone/Acetaminophen (*Crx) 5-325 Mg Tablet PO 1 tab Q4H PRN Administration Pain Rated 4-6 Hydrocodone Bitart/Acetaminophen 1 tab 11/16/24 12:28 Hydrocodone/Acetaminophen (*Crx) 5-325 Mg Tablet PO Q3H PRN Pain Rated 4-6 Hydrocodone Bitart/Acetaminophen 2 tab 11/16/24 12:28 Hydrocodone/Acetaminophen (*Crx) 5-325 Mg Tablet PO Q6H PRN Pain Rated 7-10 Alendronate Sodium 70 mg 11/15/24 06:30 11/15/24 06:30 Alendronate Sodium 70 Mg Tablet PO 70 mg We@[id number] MIGUEL Administration Atorvastatin Calcium 80 mg 11/13/24 21:00 11/16/24 20:11 Atorvastatin 40 Mg Tablet PO 80 mg HS MIGUEL Administration Calcium Carbonate 500 mg 11/13/24 09:00 11/17/24 08:34 Calcium/Vitamin D 500 Mg/5 Mcg (200 I.U.) Tablet PO 500 mg BID MIGUEL Administration Carvedilol 12.5 mg 11/13/24 09:00 11/17/24 08:33 Carvedilol 12.5 Mg Tablet PO 12.5 mg DAILY MIGUEL Administration Docusate Sodium 100 mg 11/13/24 09:00 11/17/24 08:33 Docusate Sodium 100 Mg Capsule PO 100 mg BID MIGUEL Administration Fentanyl Citrate 25 mcg 11/16/24 09:45 Fentanyl Citrate Inj (*Crx) 100 Mcg/2 Ml Vial IV PUSH Q2M PRN Pain Furosemide 20 mg 11/13/24 09:00 11/17/24 08:33 Furosemide 20 Mg Tablet PO 20 mg DAILY MIGUEL Administration Lactated Ringer's 1,000 mls @ 30 mls/hr 11/16/24 09:45 11/16/24 14:32 Lr - Lactated Ringers Iv IV CONT Not Given .Q24H MIGUEL Lactated Ringer's 1,000 mls @ 30 mls/hr 11/16/24 09:45 11/16/24 14:33 Lr - Lactated Ringers Iv IV CONT Not Given .Q24H MIGUEL Dextrose/Sodium Chloride 1,000 mls @ 80 mls/hr 11/16/24 12:30 11/17/24 01:48 Dextrose 5% Sodium Chloride 0.45% IV CONT 80 mls/hr .[id number] MIGUEL Administration Morphine Sulfate 2 mg 11/11/24 10:57 11/16/24 20:15 Morphine Sulfate (*Crx) 2 Mg/Ml Inj IV PUSH 2 mg Q2H PRN Administration Pain Rated 7-10 Ondansetron HCl 4 mg 11/11/24 10:57 11/16/24 13:40 Ondansetron Inj 4 Mg/2 Ml Vial IV PUSH 4 mg Q4H PRN Administration Nausea Ondansetron HCl 4 mg 11/16/24 09:45 Ondansetron Inj 4 Mg/2 Ml Vial IV PUSH ONCE PRN Nausea Pantoprazole Sodium 40 mg 11/13/24 09:00 11/17/24 08:33 Pantoprazole 40 Mg Tablet PO 40 mg QAM MIGUEL Administration Polyethylene Glycol 17 gm 11/17/24 09:00 11/17/24 08:33 Polyethylene Glycol 3350 17 Gm Powd.Pack PO 17 gm QAM MIGUEL Administration Senna/Docusate Sodium 2 tab 11/16/24 17:00 11/17/24 08:34 Senna/Docusate Sodium Tablet PO 2 tab BID MIGUEL Administration Valsartan 320 mg 11/13/24 09:00 11/17/24 08:33 Valsartan 160 Mg Tablet PO 320 mg QAM MIGUEL Administration Radiology Results: ITS Impressions Chest X-Ray 11/11/24 06:54 IMPRESSION: 1: NO ACUTE CARDIOPULMONARY DISEASE. Ankle X-Ray 11/11/24 09:28 Impression: 1: Significantly improved alignment of bimalleolar fractures. Head CT 11/11/24 09:55 IMPRESSION: 1. No acute intracranial abnormality. Intraoperative X-Ray 11/16/24 12:09 IMPRESSION: Fluoroscopy used during ORIF right ankle. Labs Labs: Laboratory Results - last 24 hr 11/17/24 05:43 WBC 7.7 RBC 3.33 L Hgb 9.9 L Hct 31.6 L MCV 94.9 MCH 29.7 MCHC 31.3 L RDW 13.0 Plt Count 128 L MPV 9.3 Immature Gran % (Auto) 0.3 Neut % (Auto) 74.8 H Lymph % (Auto) 8.4 L [place] % (Auto) 14.3 H Eos % (Auto) 1.9 Baso % (Auto) 0.3 Lymph # (Auto) 0.65 L [place] # (Auto) 1.1 H Eos # (Auto) 0.2 Baso # (Auto) 0.0 Abs Immat Gran (auto) 0.02 Absolute Neuts (auto) 5.8 Absolute Nucleated RBC 0.000 Nucleated RBC % 0.0 Sodium 136 L Potassium 4.5 Chloride 101 Carbon Dioxide 33 H Anion Gap 2 L BUN 18 H D Creatinine 1.04 H Estim Creat Clear Calc 42 Estimated GFR 51 L Glucose 155 H Calcium 8.2 L Total Bilirubin 0.6 AST 24 ALT 11 Alkaline Phosphatase 59 Total Protein 5.6 L Albumin 3.2 L
[2024-11-17 08:55] LABS: Magnesium 2.3 mg/dL (1.6-2.3)
--- NOTE | 2024-11-17 09:18 | PCPTNOTE ---
Called and spoke with Ortho MD Dr. Casillas by telephone and got verbal okay to continue with PT orders and non weight bearing.
--- NOTE | 2024-11-17 11:51 | PM.IMPN ---
Progress Note: A&P Assessment and Plan (1) Bimalleolar fracture of right ankle: Code(s): S82.841A - Displaced bimalleolar fracture of right lower leg, initial encounter for closed fracture Status: Acute Assessment and Plan: Radiographs showed displaced, by malleolar fracture which was reduced in the ED. -Per nursing on 11/12, ortho contacted at request of pt because she was hungry. Ortho reports that there was a miscommunication and that he would not perform surgery (if needed) for a number of days due to pt swelling. NPO cancelled, heart healthy diet resumed. -Ortho rounds on 11/12: Given the patient's fracture dislocation, I would like to wait until the swelling decreases before performing surgery. I do believe that she will benefit from having surgical fixation at the fracture. I anticipate that she may be ready for surgery Wednesday of this week. -Pain control analgesia ordered, controlling the pain per pt. -Surgery done 11/18. D5 06/15 NS @ 75ml/hr. Heart Healthy. Pain control. (2) Urinary retention: Code(s): R33.9 - Retention of urine, unspecified Status: Acute Assessment and Plan: Galvin catheter in place with strict I&O -Creat from 1.31 in ED to 1.04 today which looks to be more of her baseline, will continue to trend -UC negative. 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 Qualified Code(s): I50.42 - Chronic combined systolic (congestive) and diastolic (congestive) heart failure Code(s): I50.40 - Unspecified combined systolic (congestive) and diastolic (congestive) heart failure Status: Acute Assessment and Plan: Restarted Lasix 11/13 given kidney labs improving, will continue to assess pt volume status -Adding on BNP to labs for 6/2 AM draw, 271 -Pt not c/o SOB, CP, or BLE but per daughters, pt looks as if she is having some difficulty breathing, like she does at home when she skips her Lasix pills (5) Hypertension: Qualifiers: Hypertension type: primary hypertension Qualified Code(s): I10 - Essential (primary) hypertension Code(s): I10 - Essential (primary) hypertension Status: Acute Assessment and Plan: BP 83/44 this morning with therapy. IV fluids were increased to D5 / ND @ 100 ml/hr and patient encouraged to increase oral intake, decreased fluids this afternoon to 75 ml/hr. Current blood pressure 111/48 and patient is eating. -Restarted home meds 11/13, will continue to trend BP measurements (6) Chronic obstructive pulmonary disease: Code(s): J44.9 - Chronic obstructive pulmonary disease, unspecified Status: Acute Assessment and Plan: No acute issues, remains on her home 2 L O2 (baseline per daughter is 2-3L at home with exertion, she does not use it at night) (7) Chronic respiratory failure with hypoxia, on home oxygen therapy: Code(s): J96.11 - Chronic respiratory failure with hypoxia; Z99.81 - Dependence on supplemental oxygen Status: Acute Assessment and Plan: See above. Subjective Date/time seen: 11/17/24 11:51 Interval history: Patient had right ankle surgery yesterday. Patient reports that pain is a 7, frequent, and throbbing. Pain decreases to a 2 when still. Patient report nausea. Patient denies chest pain, palpitations, headache, dizziness, or shortness of breath. Review of Systems Review of Systems: All systems reviewed & are unremarkable except as noted in HPI and below Exam Const: General: no acute distress and uncomfortable Resp: Effort & Inspection: normal respiratory effort Auscultation: diminished lung sounds Cardio: Rate: regular rate Rhythm: regular rhythm GI: GI Palp: Yes Soft to palpation Auscultation: normal bowel sounds Neuro: Speech: normal speech Extrem: Other: RLL is splinted and casted, C/D/I, PMS intact. Psych: Mental Status: mental status grossly normal Affect: normal affect Objective Data Vital Signs Vital Signs: Vital Signs - 24 hr 11/16/24 12:06 11/16/24 12:15 11/16/24 12:30 Temperature Pulse Rate 74 76 77 Respiratory Rate 17 16 16 Blood Pressure 138/46 L 137/59 L 139/53 L Pulse Oximetry 94 99 98 Oxygen Delivery Simple Face Mask Simple Face Mask Simple Face Mask Oxygen Flow Rate 8 8 8 Fraction of Inspired Oxygen 11/16/24 12:45 11/16/24 13:00 11/16/24 13:13 Temperature 97.4 F L Pulse Rate 72 74 74 Respiratory Rate 16 20 22 H Blood Pressure 120/58 L 136/56 L 116/46 L Pulse Oximetry 95 95 94 Oxygen Delivery Nasal Cannula Nasal Cannula Oxygen Flow Rate 3 3 Fraction of Inspired Oxygen 11/16/24 13:14 11/16/24 14:00 11/16/24 14:58 Temperature 97.3 F L Pulse Rate 74 65 64 Respiratory Rate 13 20 18 Blood Pressure 125/56 L 109/37 L 110/51 L Pulse Oximetry 98 94 97 Oxygen Delivery Nasal Cannula Oxygen Flow Rate 3 Fraction of Inspired Oxygen 11/16/24 18:10 11/16/24 20:00 11/16/24 20:58 Temperature 97.5 F L Pulse Rate 82 108 H Respiratory Rate 16 20 Blood Pressure 173/61 H Pulse Oximetry 95 95 96 Oxygen Delivery Nasal Cannula Nasal Cannula Oxygen Flow Rate 2 2 Fraction of Inspired Oxygen 28 11/16/24 21:11 11/16/24 23:01 11/17/24 03:31 Temperature 99 F 99.1 F 98.1 F Pulse Rate 108 H 105 H 81 Respiratory Rate 20 20 20 Blood Pressure 154/63 H 145/75 H 127/57 L Pulse Oximetry 95 91 90 Oxygen Delivery Oxygen Flow Rate Fraction of Inspired Oxygen 11/17/24 08:01 11/17/24 08:33 11/17/24 08:59 Temperature 98.3 F Pulse Rate 81 80 Respiratory Rate 18 Blood Pressure 134/44 L Pulse Oximetry 94 96 Oxygen Delivery Nasal Cannula Oxygen Flow Rate 2.5 Fraction of Inspired Oxygen 11/17/24 10:35 Temperature Pulse Rate Respiratory Rate Blood Pressure 83/44 L Pulse Oximetry Oxygen Delivery Oxygen Flow Rate Fraction of Inspired Oxygen Intake/Output Intake/Output: Intake & Output 11/14/24 11/15/24 11/16/24 11/17/24 23:59 23:59 23:59 23:59 Intake Total 940 078 250 8198.7 Output Total 450 850 926 800 Balance 239 -85 -863 1542.7 Meds/Results Medications: Active Medications Generic Name Dose Route Start Last Admin Trade Name Freq PRN Reason Stop Dose Admin Acetaminophen 650 mg 11/11/24 10:57 Acetaminophen 325 Mg Tablet PO Q4H PRN Mild Pain (1-3) or Fever Hydrocodone Bitart/Acetaminophen 1 tab 11/11/24 10:57 11/15/24 16:47 Hydrocodone/Acetaminophen (*Crx) 5-325 Mg Tablet PO 1 tab Q4H PRN Administration Pain Rated 4-6 Hydrocodone Bitart/Acetaminophen 1 tab 11/16/24 12:28 Hydrocodone/Acetaminophen (*Crx) 5-325 Mg Tablet PO Q3H PRN Pain Rated 4-6 Hydrocodone Bitart/Acetaminophen 2 tab 11/16/24 12:28 Hydrocodone/Acetaminophen (*Crx) 5-325 Mg Tablet PO Q6H PRN Pain Rated 7-10 Alendronate Sodium 70 mg 11/15/24 06:30 11/15/24 06:30 Alendronate Sodium 70 Mg Tablet PO 70 mg We@[id number] MIGUEL Administration Atorvastatin Calcium 80 mg 11/13/24 21:00 11/16/24 20:11 Atorvastatin 40 Mg Tablet PO 80 mg HS MIGUEL Administration Calcium Carbonate 500 mg 11/13/24 09:00 11/17/24 08:34 Calcium/Vitamin D 500 Mg/5 Mcg (200 I.U.) Tablet PO 500 mg BID MIGUEL Administration Carvedilol 12.5 mg 11/13/24 09:00 11/17/24 08:33 Carvedilol 12.5 Mg Tablet PO 12.5 mg DAILY MIGUEL Administration Docusate Sodium 100 mg 11/13/24 09:00 11/17/24 08:33 Docusate Sodium 100 Mg Capsule PO 100 mg BID MIGUEL Administration Fentanyl Citrate 25 mcg 11/16/24 09:45 Fentanyl Citrate Inj (*Crx) 100 Mcg/2 Ml Vial IV PUSH Q2M PRN Pain Furosemide 20 mg 11/13/24 09:00 11/17/24 08:33 Furosemide 20 Mg Tablet PO 20 mg DAILY MIGUEL Administration Lactated Ringer's 1,000 mls @ 30 mls/hr 11/16/24 09:45 11/16/24 14:32 Lr - Lactated Ringers Iv IV CONT Not Given .Q24H MIGUEL Lactated Ringer's 1,000 mls @ 30 mls/hr 11/16/24 09:45 11/16/24 14:33 Lr - Lactated Ringers Iv IV CONT Not Given .Q24H MIGUEL Dextrose/Sodium Chloride 1,000 mls @ 100 mls/hr 11/16/24 12:30 11/17/24 11:05 Dextrose 5% Sodium Chloride 0.45% IV CONT 100 mls/hr .Q10H MIGUEL Infusion Morphine Sulfate 2 mg 11/11/24 10:57 11/16/24 20:15 Morphine Sulfate (*Crx) 2 Mg/Ml Inj IV PUSH 2 mg Q2H PRN Administration Pain Rated 7-10 Ondansetron HCl 4 mg 11/11/24 10:57 11/16/24 13:40 Ondansetron Inj 4 Mg/2 Ml Vial IV PUSH 4 mg Q4H PRN Administration Nausea Ondansetron HCl 4 mg 11/16/24 09:45 Ondansetron Inj 4 Mg/2 Ml Vial IV PUSH ONCE PRN Nausea Pantoprazole Sodium 40 mg 11/13/24 09:00 11/17/24 08:33 Pantoprazole 40 Mg Tablet PO 40 mg QAM MIGUEL Administration Polyethylene Glycol 17 gm 11/17/24 09:00 11/17/24 08:33 Polyethylene Glycol 3350 17 Gm Powd.Pack PO 17 gm QAM MIGUEL Administration Senna/Docusate Sodium 2 tab 11/16/24 17:00 11/17/24 08:34 Senna/Docusate Sodium Tablet PO 2 tab BID MIGUEL Administration Valsartan 320 mg 11/13/24 09:00 11/17/24 08:33 Valsartan 160 Mg Tablet PO 320 mg QAM MIGUEL Administration Radiology Results: ITS Impressions Chest X-Ray 11/11/24 06:54 IMPRESSION: 1: NO ACUTE CARDIOPULMONARY DISEASE. Ankle X-Ray 11/11/24 09:28 Impression: 1: Significantly improved alignment of bimalleolar fractures. Head CT 11/11/24 09:55 IMPRESSION: 1. No acute intracranial abnormality. Intraoperative X-Ray 11/16/24 12:09 IMPRESSION: Fluoroscopy used during ORIF right ankle. Labs Labs: Laboratory Results - last 24 hr 11/17/24 11/17/24 05:42 05:43 WBC 7.7 RBC 3.33 L Hgb 9.9 L Hct 31.6 L MCV 94.9 MCH 29.7 MCHC 31.3 L RDW 13.0 Plt Count 128 L MPV 9.3 Immature Gran % (Auto) 0.3 Neut % (Auto) 74.8 H Lymph % (Auto) 8.4 L [place] % (Auto) 14.3 H Eos % (Auto) 1.9 Baso % (Auto) 0.3 Lymph # (Auto) 0.65 L [place] # (Auto) 1.1 H Eos # (Auto) 0.2 Baso # (Auto) 0.0 Abs Immat Gran (auto) 0.02 Absolute Neuts (auto) 5.8 Absolute Nucleated RBC 0.000 Nucleated RBC % 0.0 Sodium 136 L Potassium 4.5 Chloride 101 Carbon Dioxide 33 H Anion Gap 2 L BUN 18 H D Creatinine 1.04 H Estim Creat Clear Calc 42 Estimated GFR 51 L Glucose 155 H Calcium 8.2 L Magnesium 2.3 Total Bilirubin 0.6 AST 24 ALT 11 Alkaline Phosphatase 59 Total Protein 5.6 L Albumin 3.2 L Quality VTE Prophylaxis VTE prophylaxis: mechanical ordered
[2024-11-17] MEDS: DEXTROSE 5%/0.45% SOD CHL 1,000 ML 100 ML IV CONT (14:46)
[2024-11-17] MEDS: ATORVASTATIN 40 MG TABLET 80 MG PO (20:21)
[2024-11-18] MEDS: DEXTROSE 5%/0.45% SOD CHL 1,000 ML 75 ML IV CONT ×2 (02:19→15:49)
[2024-11-18 05:05] LABS: Basophils Percent Auto 0.4 % (0.2-1.2); Eosinophils Absolute Auto 0.2 K/mm3 (0-0.3); Eosinophils Percent Auto 3.1 % (0-4.4); Hematocrit 31.4 % (37.0-47.0); Hemoglobin 9.6 g/dL (12.0-15.0); Immature Granulocyte Absolute 0.03 K/mm3 (0.00-0.031); Immature Granulocyte Percent A 0.4 % (0-0.5); Lymphocytes Absolute Auto 0.85 K/mm3 (0.9-3.2); Lymphocytes Percent Auto 11.3 % (18.3-44.2); Mean Corpuscular HGB Conc 30.6 g/dl (32-36); Mean Corpuscular Hemoglobin 29.6 pg (26-34); Mean Corpuscular Volume 96.9 fl (80-100); Monocytes Absolute Auto 0.9 K/mm3 (0.1-0.6); Monocytes Percent Auto 11.6 % (2.6-8.5); Neutrophils Absolute Auto 5.5 K/mm3 (1.3-6.7); Neutrophils Percent Auto 73.2 % (45.5-73.1); Platelet Count Result 129 k/mm3 (150-375); Red Blood Count 3.24 M/mm3 (4.2-5.4); White Blood Count 7.5 K/mm3 (4.5-10.0)
[2024-11-18 05:24] LABS: Alanine Aminotransferase 11 U/L (6-35); Albumin Level 3.2 g/dL (3.5-5.1); Alkaline Phosphatase 67 U/L (38-126); Anion Gap 3 mmol/L (4-12); Aspartate Amino Transferase 21 U/L (14-36); Bilirubin,Total 0.6 mg/dL (0.2-1.3); Blood Urea Nitrogen 12 mg/dL (7-17); Calcium 8.4 mg/dL (8.4-10.2); Carbon Dioxide 32 mmol/L (22-30); Chloride 103 mmol/L (98-107); Estimated CRCL calculation 49 ml/min; Estimated Glomerular Filt Rate 60; Glucose 143 mg/dL (65-110); Potassium 4.2 mmol/L (3.4-5.0); Sodium 138 mmol/L (137-145); Total Protein 5.9 g/dL (6.3-8.2)
[2024-11-18 06:00] VITALS: BP 142/66; PULSE 79; RESP 18; TEMP 36.7; O2SAT 94
[2024-11-18] MEDS: polyethylene glycoL 3350 17 GM POWD.PACK PO (09:41)
[2024-11-18 09:42] VITALS: PULSE 79
[2024-11-18] MEDS: CALCIUM/VITAMIN D 500 MG/5 MCG (200 I.U.) TABLET PO ×2 (09:42→17:24)
[2024-11-18] MEDS: PANTOPRAZOLE 40 MG TABLET PO (09:42)
[2024-11-18] MEDS: FUROSEMIDE 20 MG TABLET PO (09:42)
[2024-11-18] MEDS: SENNA/DOCUSATE SODIUM TABLET 2 TAB PO ×2 (09:42→17:24)
[2024-11-18] MEDS: DOCUSATE SODIUM 100 MG CAPSULE PO ×2 (09:42→17:24)
[2024-11-18] MEDS: VALSARTAN 160 MG TABLET 320 MG PO (09:42)
[2024-11-18] MEDS: carvediloL 12.5 MG TABLET PO (09:42)
[2024-11-18 09:45] VITALS: O2SAT 94
[2024-11-18] MEDS: HYDROcodone/acetaminophen (*CRX) 5-325 MG TABLET 1 TAB PO ×3 (09:57→22:19)
--- NOTE | 2024-11-18 11:00 | P.PNIM_ITS ---
Progress Note: A&P Assessment and Plan (1) Bimalleolar fracture of right ankle: Code(s): S82.841A - Displaced bimalleolar fracture of right lower leg, initial encounter for closed fracture Status: Acute Assessment and Plan: Radiographs showed displaced, by malleolar fracture which was reduced in the ED. -Per nursing on 11/12, ortho contacted at request of pt because she was hungry. Ortho reports that there was a miscommunication and that he would not perform surgery (if needed) for a number of days due to pt swelling. NPO cancelled, heart healthy diet resumed. -Ortho rounds on 11/12: Given the patient's fracture dislocation, I would like to wait until the swelling decreases before performing surgery. I do believe that she will benefit from having surgical fixation at the fracture. I anticipate that she may be ready for surgery Wednesday of this week. -Pain control analgesia ordered, controlling the pain per pt. -Surgery done 11/18. D5 06/15 NS @ 75ml/hr. Heart Healthy. Pain control. (2) Urinary retention: Code(s): R33.9 - Retention of urine, unspecified Status: Acute Assessment and Plan: Galvin catheter in place with strict I&O -Creat from 1.31 in ED to 0.90 today which looks to be more of her baseline, will continue to trend -UC negative. 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 Qualified Code(s): I50.42 - Chronic combined systolic (congestive) and diastolic (congestive) heart failure Code(s): I50.40 - Unspecified combined systolic (congestive) and diastolic (congestive) heart failure Status: Acute Assessment and Plan: Restarted Lasix 11/13 given kidney labs improving, will continue to assess pt volume status -Adding on BNP to labs for 6/2 AM draw, 271 -Pt not c/o SOB, CP, or BLE but per daughters, pt looks as if she is having some difficulty breathing, like she does at home when she skips her Lasix pills (5) Hypertension: Qualifiers: Hypertension type: primary hypertension Qualified Code(s): I10 - Essential (primary) hypertension Code(s): I10 - Essential (primary) hypertension Status: Acute Assessment and Plan: -Restarted home meds 11/13, will continue to trend BP measurements -Blood pressure 114/62. (6) Chronic obstructive pulmonary disease: Code(s): J44.9 - Chronic obstructive pulmonary disease, unspecified Status: Acute Assessment and Plan: No acute issues, remains on her home 2 L O2 (baseline per daughter is 2-3L at home with exertion, she does not use it at night) (7) Chronic respiratory failure with hypoxia, on home oxygen therapy: Code(s): J96.11 - Chronic respiratory failure with hypoxia; Z99.81 - Dependence on supplemental oxygen Status: Acute Assessment and Plan: See above. Subjective Date/time seen: 11/18/24 11:00 Interval history: Patient sitting up in bed with daughters at bedside. Patient reports pain in right leg is a 6, frequent, and aching. Patient denies chest pain, palpitations, headache, dizziness, nausea, or vomiting. Review of Systems Review of Systems: All systems reviewed & are unremarkable except as noted in HPI and below Exam Const: General: no acute distress and uncomfortable Resp: Effort & Inspection: normal respiratory effort Auscultation: diminished lung sounds Cardio: Rate: regular rate Rhythm: regular rhythm GI: GI Palp: Yes Soft to palpation Auscultation: normal bowel sounds Urinary Catheter: Urinary Catheter: patent and draining (yellow) Neuro: Speech: normal speech Extrem: Other: RLL is splinted and casted, C/D/I, PMS intact. Psych: Mental Status: mental status grossly normal Affect: normal affect Objective Data Vital Signs Vital Signs: Vital Signs - 24 hr 11/17/24 12:19 11/17/24 14:56 11/17/24 20:20 Temperature 97.5 F L 97.5 F L Pulse Rate 74 91 78 Respiratory Rate 20 18 18 Blood Pressure 103/44 L 111/48 L Pulse Oximetry 96 98 98 Oxygen Delivery Nasal Cannula Oxygen Flow Rate 2 Fraction of Inspired Oxygen 28 11/17/24 22:00 11/17/24 22:10 11/18/24 06:00 Temperature 98.3 F 98.0 F Pulse Rate 78 78 79 Respiratory Rate 18 18 Blood Pressure 147/51 H 142/66 H Pulse Oximetry 98 94 94 Oxygen Delivery Nasal Cannula Oxygen Flow Rate 2 Fraction of Inspired Oxygen 11/18/24 09:42 Temperature Pulse Rate 79 Respiratory Rate Blood Pressure Pulse Oximetry Oxygen Delivery Oxygen Flow Rate Fraction of Inspired Oxygen Intake/Output Intake/Output: Intake & Output 11/15/24 11/16/24 11/17/24 11/18/24 23:59 23:59 23:59 23:59 Intake Total 761 433 1635.7 933.3 Output Total 528 638 3628 1500 Balance -50 -366 1256.7 -566.7 Meds/Results Medications: Active Medications Generic Name Dose Route Start Last Admin Trade Name Freq PRN Reason Stop Dose Admin Acetaminophen 650 mg 11/11/24 10:57 Acetaminophen 325 Mg Tablet PO Q4H PRN Mild Pain (1-3) or Fever Hydrocodone Bitart/Acetaminophen 1 tab 11/11/24 10:57 11/18/24 09:57 Hydrocodone/Acetaminophen (*Crx) 5-325 Mg Tablet PO 1 tab Q4H PRN Administration Pain Rated 4-6 Hydrocodone Bitart/Acetaminophen 1 tab 11/16/24 12:28 Hydrocodone/Acetaminophen (*Crx) 5-325 Mg Tablet PO Q3H PRN Pain Rated 4-6 Hydrocodone Bitart/Acetaminophen 2 tab 11/16/24 12:28 Hydrocodone/Acetaminophen (*Crx) 5-325 Mg Tablet PO Q6H PRN Pain Rated 7-10 Alendronate Sodium 70 mg 11/15/24 06:30 11/15/24 06:30 Alendronate Sodium 70 Mg Tablet PO 70 mg We@[id number] MIGUEL Administration Atorvastatin Calcium 80 mg 11/13/24 21:00 11/17/24 20:21 Atorvastatin 40 Mg Tablet PO 80 mg HS MIGUEL Administration Bisacodyl 10 mg 11/17/24 11:52 Bisacodyl 10 Mg Suppository RECTAL DAILY PRN Constipation Calcium Carbonate 500 mg 11/13/24 09:00 11/18/24 09:42 Calcium/Vitamin D 500 Mg/5 Mcg (200 I.U.) Tablet PO 500 mg BID MIGUEL Administration Carvedilol 12.5 mg 11/13/24 09:00 11/18/24 09:42 Carvedilol 12.5 Mg Tablet PO 12.5 mg DAILY MIGUEL Administration Docusate Sodium 100 mg 11/13/24 09:00 11/18/24 09:42 Docusate Sodium 100 Mg Capsule PO 100 mg BID MIGUEL Administration Fentanyl Citrate 25 mcg 11/16/24 09:45 Fentanyl Citrate Inj (*Crx) 100 Mcg/2 Ml Vial IV PUSH Q2M PRN Pain Furosemide 20 mg 11/13/24 09:00 11/18/24 09:42 Furosemide 20 Mg Tablet PO 20 mg DAILY MIGUEL Administration Lactated Ringer's 1,000 mls @ 30 mls/hr 11/16/24 09:45 11/17/24 15:01 Lr - Lactated Ringers Iv IV CONT Not Given .Q24H MIGUEL Lactated Ringer's 1,000 mls @ 30 mls/hr 11/16/24 09:45 11/17/24 15:01 Lr - Lactated Ringers Iv IV CONT Not Given .Q24H MIGUEL Dextrose/Sodium Chloride 1,000 mls @ 75 mls/hr 11/16/24 12:30 11/18/24 02:19 Dextrose 5% Sodium Chloride 0.45% IV CONT 75 mls/hr .[id number] MIGUEL Administration Morphine Sulfate 2 mg 11/11/24 10:57 11/16/24 20:15 Morphine Sulfate (*Crx) 2 Mg/Ml Inj IV PUSH 2 mg Q2H PRN Administration Pain Rated 7-10 Ondansetron HCl 4 mg 11/11/24 10:57 11/16/24 13:40 Ondansetron Inj 4 Mg/2 Ml Vial IV PUSH 4 mg Q4H PRN Administration Nausea Ondansetron HCl 4 mg 11/16/24 09:45 Ondansetron Inj 4 Mg/2 Ml Vial IV PUSH ONCE PRN Nausea Pantoprazole Sodium 40 mg 11/13/24 09:00 11/18/24 09:42 Pantoprazole 40 Mg Tablet PO 40 mg QAM MIGUEL Administration Polyethylene Glycol 17 gm 11/17/24 09:00 11/18/24 09:41 Polyethylene Glycol 3350 17 Gm Powd.Pack PO 17 gm QAM MIGUEL Administration Senna/Docusate Sodium 2 tab 11/16/24 17:00 11/18/24 09:42 Senna/Docusate Sodium Tablet PO 2 tab BID MIGUEL Administration Valsartan 320 mg 11/13/24 09:00 11/18/24 09:42 Valsartan 160 Mg Tablet PO 320 mg QAM MIGUEL Administration Radiology Results: ITS Impressions Chest X-Ray 11/11/24 06:54 IMPRESSION: 1: NO ACUTE CARDIOPULMONARY DISEASE. Ankle X-Ray 11/11/24 09:28 Impression: 1: Significantly improved alignment of bimalleolar fractures. Head CT 11/11/24 09:55 IMPRESSION: 1. No acute intracranial abnormality. Intraoperative X-Ray 11/16/24 12:09 IMPRESSION: Fluoroscopy used during ORIF right ankle. Labs Labs: Laboratory Results - last 24 hr 11/18/24 04:48 WBC 7.5 RBC 3.24 L Hgb 9.6 L Hct 31.4 L MCV 96.9 MCH 29.6 MCHC 30.6 L RDW 13.0 Plt Count 129 L MPV 9.0 Immature Gran % (Auto) 0.4 Neut % (Auto) 73.2 H Lymph % (Auto) 11.3 L [place] % (Auto) 11.6 H Eos % (Auto) 3.1 Baso % (Auto) 0.4 Lymph # (Auto) 0.85 L [place] # (Auto) 0.9 H Eos # (Auto) 0.2 Baso # (Auto) 0.0 Abs Immat Gran (auto) 0.03 Absolute Neuts (auto) 5.5 Absolute Nucleated RBC 0.000 Nucleated RBC % 0.0 Sodium 138 Potassium 4.2 Chloride 103 Carbon Dioxide 32 H Anion Gap 3 L BUN 12 D Creatinine 0.90 Estim Creat Clear Calc 49 Estimated GFR 60 Glucose 143 H Calcium 8.4 Total Bilirubin 0.6 AST 21 ALT 11 Alkaline Phosphatase 67 Total Protein 5.9 L Albumin 3.2 L Quality VTE Prophylaxis VTE prophylaxis: mechanical ordered
[2024-11-18 14:00] VITALS: BP 114/62; PULSE 75; RESP 20; TEMP 36.6; O2SAT 95
[2024-11-18 20:00] VITALS: O2SAT 97
[2024-11-18 20:01] VITALS: BP 113/50; PULSE 63; RESP 20; TEMP 36.5; O2SAT 97
[2024-11-18] MEDS: ATORVASTATIN 40 MG TABLET 80 MG PO (20:33)
[2024-11-18] MEDS: ACETAMINOPHEN 325 MG TABLET 650 MG PO (21:45)
[2024-11-19 05:01] LABS: Basophils Percent Auto 0.4 % (0.2-1.2); Eosinophils Absolute Auto 0.4 K/mm3 (0-0.3); Eosinophils Percent Auto 6.8 % (0-4.4); Hematocrit 29.5 % (37.0-47.0); Hemoglobin 8.8 g/dL (12.0-15.0); Immature Granulocyte Absolute 0.01 K/mm3 (0.00-0.031); Immature Granulocyte Percent A 0.2 % (0-0.5); Lymphocytes Absolute Auto 1.27 K/mm3 (0.9-3.2); Lymphocytes Percent Auto 23.3 % (18.3-44.2); Mean Corpuscular HGB Conc 29.8 g/dl (32-36); Mean Corpuscular Hemoglobin 29.5 pg (26-34); Mean Platelet Volume 9.3 fl (7.4-10.4); Monocytes Absolute Auto 0.5 K/mm3 (0.1-0.6); Monocytes Percent Auto 8.6 % (2.6-8.5); Neutrophils Absolute Auto 3.3 K/mm3 (1.3-6.7); Neutrophils Percent Auto 60.7 % (45.5-73.1); Platelet Count Result 138 k/mm3 (150-375); Red Blood Count 2.98 M/mm3 (4.2-5.4); Red Cell Distribution Width 13.2 % (11.5-14.5); White Blood Count 5.4 K/mm3 (4.5-10.0)
[2024-11-19 05:27] LABS: Alanine Aminotransferase 10 U/L (6-35); Albumin Level 2.9 g/dL (3.5-5.1); Alkaline Phosphatase 51 U/L (38-126); Anion Gap 2 mmol/L (4-12); Aspartate Amino Transferase 21 U/L (14-36); Bilirubin,Total 0.5 mg/dL (0.2-1.3); Blood Urea Nitrogen 12 mg/dL (7-17); Calcium 8.1 mg/dL (8.4-10.2); Carbon Dioxide 33 mmol/L (22-30); Chloride 103 mmol/L (98-107); Estimated CRCL calculation 50 ml/min; Estimated Glomerular Filt Rate > 60; Glucose 122 mg/dL (65-110); Potassium 4.3 mmol/L (3.4-5.0); Sodium 138 mmol/L (137-145); Total Protein 5.4 g/dL (6.3-8.2)
[2024-11-19 05:35] VITALS: BP 141/47; PULSE 60; RESP 20; TEMP 36; O2SAT 99
[2024-11-19 05:36] LABS: Hypochromasia 1+
[2024-11-19 05:37] LABS: Anisocytosis 1+; Burr Cells 1+; Microcytosis 1+ (NORMAL); Ovalocytes 1+; Platelet Estimate Slightly Decreased (Adequate); Poikilocytosis 1+; Schistocytes Rare
[2024-11-19 09:45] VITALS: O2SAT 96
[2024-11-19] MEDS: SENNA/DOCUSATE SODIUM TABLET 2 TAB PO (09:50)
[2024-11-19] MEDS: VALSARTAN 160 MG TABLET 320 MG PO (09:50)
[2024-11-19] MEDS: DOCUSATE SODIUM 100 MG CAPSULE PO (09:50)
[2024-11-19] MEDS: CALCIUM/VITAMIN D 500 MG/5 MCG (200 I.U.) TABLET PO ×2 (09:50→17:27)
[2024-11-19] MEDS: PANTOPRAZOLE 40 MG TABLET PO (09:50)
[2024-11-19] MEDS: FUROSEMIDE 20 MG TABLET PO (09:50)
[2024-11-19 09:51] VITALS: PULSE 79
[2024-11-19] MEDS: polyethylene glycoL 3350 17 GM POWD.PACK PO (09:51)
[2024-11-19] MEDS: carvediloL 12.5 MG TABLET PO (09:51)
--- NOTE | 2024-11-19 11:02 | P.PNIM_ITS ---
Progress Note: A&P Assessment and Plan (1) Bimalleolar fracture of right ankle: Code(s): S82.841A - Displaced bimalleolar fracture of right lower leg, initial encounter for closed fracture Status: Acute Assessment and Plan: Radiographs showed displaced, by malleolar fracture which was reduced in the ED. -Per nursing on 11/12, ortho contacted at request of pt because she was hungry. Ortho reports that there was a miscommunication and that he would not perform surgery (if needed) for a number of days due to pt swelling. NPO cancelled, heart healthy diet resumed. -Ortho rounds on 11/12: Given the patient's fracture dislocation, I would like to wait until the swelling decreases before performing surgery. I do believe that she will benefit from having surgical fixation at the fracture. I anticipate that she may be ready for surgery Wednesday of this week. -Pain control analgesia ordered, controlling the pain per pt. -Surgery done 11/18. Heart Healthy. Pain control. -Care coordination submitted for insurance authorization for patient to go to rehab. (2) Urinary retention: Code(s): R33.9 - Retention of urine, unspecified Status: Acute Assessment and Plan: Galvin catheter in place with strict I&O -Creat from 1.31 in ED to 0.87 today which looks to be more of her baseline, will continue to trend -UC negative. 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 Qualified Code(s): I50.42 - Chronic combined systolic (congestive) and diastolic (congestive) heart failure Code(s): I50.40 - Unspecified combined systolic (congestive) and diastolic (congestive) heart failure Status: Acute Assessment and Plan: Restarted Lasix 11/13 given kidney labs improving, will continue to assess pt volume status -Adding on BNP to labs for 6/2 AM draw, 271 -Pt not c/o SOB, CP, or BLE but per daughters, pt looks as if she is having some difficulty breathing, like she does at home when she skips her Lasix pills (5) Hypertension: Qualifiers: Hypertension type: primary hypertension Qualified Code(s): I10 - Essential (primary) hypertension Code(s): I10 - Essential (primary) hypertension Status: Acute Assessment and Plan: -Restarted home meds 11/13, will continue to trend BP measurements -Blood pressure 125/61. (6) Chronic obstructive pulmonary disease: Code(s): J44.9 - Chronic obstructive pulmonary disease, unspecified Status: Acute Assessment and Plan: No acute issues, remains on her home 2 L O2 (baseline per daughter is 2-3L at home with exertion, she does not use it at night) (7) Chronic respiratory failure with hypoxia, on home oxygen therapy: Code(s): J96.11 - Chronic respiratory failure with hypoxia; Z99.81 - Dependence on supplemental oxygen Status: Acute Assessment and Plan: See above. Subjective Date/time seen: 11/19/24 11:02 Interval history: Patient sitting up in bed with daughters at bedside. Patient reports pain in right leg is a 6, frequent, and aching. Patient denies chest pain, palpitations, headache, dizziness, nausea, or vomiting. Patient had a large bowel movement this morning. Review of Systems Review of Systems: All systems reviewed & are unremarkable except as noted in HPI and below Exam Const: General: no acute distress and uncomfortable Resp: Effort & Inspection: normal respiratory effort Auscultation: diminished lung sounds Cardio: Rate: regular rate Rhythm: regular rhythm GI: GI Palp: Yes Soft to palpation Auscultation: normal bowel sounds Urinary Catheter: Urinary Catheter: patent and draining (yellow urine. ) Neuro: Speech: normal speech Extrem: Other: RLL is splinted and casted, C/D/I, PMS intact. Psych: Mental Status: mental status grossly normal Affect: normal affect Objective Data Vital Signs Vital Signs: Vital Signs - 24 hr 11/18/24 14:00 11/18/24 20:00 11/18/24 20:01 Temperature 97.8 F 97.7 F Pulse Rate 75 63 Respiratory Rate 20 20 Blood Pressure 114/62 113/50 L Pulse Oximetry 95 97 97 Oxygen Delivery Nasal Cannula Oxygen Flow Rate 2 11/19/24 05:35 11/19/24 09:51 Temperature 96.8 F L Pulse Rate 60 79 Respiratory Rate 20 Blood Pressure 141/47 H Pulse Oximetry 99 Oxygen Delivery Oxygen Flow Rate Intake/Output Intake/Output: Intake & Output 11/16/24 11/17/24 11/18/24 11/19/24 23:59 23:59 23:59 23:59 Intake Total 560 3756.7 2293.3 1428.7 Output Total 926 1319 2425 350 Balance -366 1256.7 -131.7 1078.7 Meds/Results Medications: Active Medications Generic Name Dose Route Start Last Admin Trade Name Freq PRN Reason Stop Dose Admin Acetaminophen 650 mg 11/11/24 10:57 11/18/24 21:45 Acetaminophen 325 Mg Tablet PO 650 mg Q4H PRN Administration Mild Pain (1-3) or Fever Hydrocodone Bitart/Acetaminophen 1 tab 11/11/24 10:57 11/18/24 22:19 Hydrocodone/Acetaminophen (*Crx) 5-325 Mg Tablet PO 1 tab Q4H PRN Administration Pain Rated 4-6 Hydrocodone Bitart/Acetaminophen 1 tab 11/16/24 12:28 Hydrocodone/Acetaminophen (*Crx) 5-325 Mg Tablet PO Q3H PRN Pain Rated 4-6 Hydrocodone Bitart/Acetaminophen 2 tab 11/16/24 12:28 Hydrocodone/Acetaminophen (*Crx) 5-325 Mg Tablet PO Q6H PRN Pain Rated 7-10 Albuterol 2 puff 11/19/24 08:54 Albuterol Sulfate (*Sp) Aerosol 1 Puff INHALATION Q6HRT PRN Shortness Of Breath Or Wheezing Alendronate Sodium 70 mg 11/15/24 06:30 11/15/24 06:30 Alendronate Sodium 70 Mg Tablet PO 70 mg We@0630 MIGUEL Administration Atorvastatin Calcium 80 mg 11/13/24 21:00 11/18/24 20:33 Atorvastatin 40 Mg Tablet PO 80 mg HS MIGUEL Administration Bisacodyl 10 mg 11/17/24 11:52 Bisacodyl 10 Mg Suppository RECTAL DAILY PRN Constipation Calcium Carbonate 500 mg 11/13/24 09:00 11/19/24 09:50 Calcium/Vitamin D 500 Mg/5 Mcg (200 I.U.) Tablet PO 500 mg BID MIGUEL Administration Carvedilol 12.5 mg 11/13/24 09:00 11/19/24 09:51 Carvedilol 12.5 Mg Tablet PO 12.5 mg DAILY MIGUEL Administration Docusate Sodium 100 mg 11/13/24 09:00 11/19/24 09:50 Docusate Sodium 100 Mg Capsule PO 100 mg BID MIGUEL Administration Fentanyl Citrate 25 mcg 11/16/24 09:45 Fentanyl Citrate Inj (*Crx) 100 Mcg/2 Ml Vial IV PUSH Q2M PRN Pain Furosemide 20 mg 11/13/24 09:00 11/19/24 09:50 Furosemide 20 Mg Tablet PO 20 mg DAILY MIGUEL Administration Lactated Ringer's 1,000 mls @ 30 mls/hr 11/16/24 09:45 11/18/24 19:51 Lr - Lactated Ringers Iv IV CONT Not Given .Q24H MIGUEL Lactated Ringer's 1,000 mls @ 30 mls/hr 11/16/24 09:45 11/18/24 19:52 Lr - Lactated Ringers Iv IV CONT Not Given .Q24H MIGUEL Ondansetron HCl 4 mg 11/11/24 10:57 11/16/24 13:40 Ondansetron Inj 4 Mg/2 Ml Vial IV PUSH 4 mg Q4H PRN Administration Nausea Ondansetron HCl 4 mg 11/16/24 09:45 Ondansetron Inj 4 Mg/2 Ml Vial IV PUSH ONCE PRN Nausea Pantoprazole Sodium 40 mg 11/13/24 09:00 11/19/24 09:50 Pantoprazole 40 Mg Tablet PO 40 mg QAM MIGUEL Administration Polyethylene Glycol 17 gm 11/17/24 09:00 11/19/24 09:51 Polyethylene Glycol 3350 17 Gm Powd.Pack PO 17 gm QAM MIGUEL Administration Senna/Docusate Sodium 2 tab 11/16/24 17:00 11/19/24 09:50 Senna/Docusate Sodium Tablet PO 2 tab BID MIGUEL Administration Valsartan 320 mg 11/13/24 09:00 11/19/24 09:50 Valsartan 160 Mg Tablet PO 320 mg QAM MIGUEL Administration Radiology Results: ITS Impressions Chest X-Ray 11/11/24 06:54 IMPRESSION: 1: NO ACUTE CARDIOPULMONARY DISEASE. Ankle X-Ray 11/11/24 09:28 Impression: 1: Significantly improved alignment of bimalleolar fractures. Head CT 11/11/24 09:55 IMPRESSION: 1. No acute intracranial abnormality. Intraoperative X-Ray 11/16/24 12:09 IMPRESSION: Fluoroscopy used during ORIF right ankle. Labs Labs: Laboratory Results - last 24 hr 11/19/24 04:47 WBC 5.4 RBC 2.98 L Hgb 8.8 L Hct 29.5 L MCV 99.0 MCH 29.5 MCHC 29.8 L RDW 13.2 Plt Count 138 L MPV 9.3 Immature Gran % (Auto) 0.2 Neut % (Auto) 60.7 Lymph % (Auto) 23.3 [place] % (Auto) 8.6 H Eos % (Auto) 6.8 H Baso % (Auto) 0.4 Lymph # (Auto) 1.27 [place] # (Auto) 0.5 Eos # (Auto) 0.4 H Baso # (Auto) 0.0 Abs Immat Gran (auto) 0.01 Absolute Neuts (auto) 3.3 Absolute Nucleated RBC 0.000 Band Neutrophils % Not Reportable Nucleated RBC % 0.0 Platelet Estimate Slightly decreased Hypochromasia 1+ Poikilocytosis 1+ Anisocytosis 1+ Microcytosis 1+ Ovalocytes 1+ Amari Cells 1+ Schistocytes Rare Sodium 138 Potassium 4.3 Chloride 103 Carbon Dioxide 33 H Anion Gap 2 L BUN 12 Creatinine 0.87 Estim Creat Clear Calc 50 Estimated GFR > 60 Glucose 122 H Calcium 8.1 L Total Bilirubin 0.5 AST 21 ALT 10 Alkaline Phosphatase 51 Total Protein 5.4 L Albumin 2.9 L Quality VTE Prophylaxis VTE prophylaxis: mechanical ordered
[2024-11-19 14:00] VITALS: BP 125/61; PULSE 73; RESP 20; O2SAT 98
[2024-11-19 20:00] VITALS: O2SAT 98
[2024-11-19] MEDS: HYDROcodone/acetaminophen (*CRX) 5-325 MG TABLET 1 TAB PO (20:03)
[2024-11-19] MEDS: ATORVASTATIN 40 MG TABLET 80 MG PO (20:03)
[2024-11-19 21:06] VITALS: BP 125/50; PULSE 73; RESP 20; TEMP 36.6; O2SAT 98
[2024-11-20 04:21] VITALS: BP 143/53; PULSE 62; RESP 20; TEMP 36.2; O2SAT 99
[2024-11-20 05:00] LABS: Basophils Percent Auto 0.3 % (0.2-1.2); Eosinophils Absolute Auto 0.5 K/mm3 (0-0.3); Eosinophils Percent Auto 7.6 % (0-4.4); Hematocrit 31.7 % (37.0-47.0); Hemoglobin 9.5 g/dL (12.0-15.0); Immature Granulocyte Absolute 0.02 K/mm3 (0.00-0.031); Immature Granulocyte Percent A 0.3 % (0-0.5); Lymphocytes Absolute Auto 1.28 K/mm3 (0.9-3.2); Lymphocytes Percent Auto 21.7 % (18.3-44.2); Mean Corpuscular Hemoglobin 29.6 pg (26-34); Mean Corpuscular Volume 98.8 fl (80-100); Mean Platelet Volume 9.1 fl (7.4-10.4); Monocytes Absolute Auto 0.5 K/mm3 (0.1-0.6); Monocytes Percent Auto 8.8 % (2.6-8.5); Neutrophils Absolute Auto 3.6 K/mm3 (1.3-6.7); Neutrophils Percent Auto 61.3 % (45.5-73.1); Platelet Count Result 162 k/mm3 (150-375); Red Blood Count 3.21 M/mm3 (4.2-5.4); Red Cell Distribution Width 13.2 % (11.5-14.5); White Blood Count 5.9 K/mm3 (4.5-10.0)
[2024-11-20 05:35] LABS: Alanine Aminotransferase 13 U/L (6-35); Albumin Level 3.1 g/dL (3.5-5.1); Alkaline Phosphatase 67 U/L (38-126); Anion Gap 6 mmol/L (4-12); Aspartate Amino Transferase 23 U/L (14-36); Bilirubin,Total 0.6 mg/dL (0.2-1.3); Blood Urea Nitrogen 14 mg/dL (7-17); Calcium 9.1 mg/dL (8.4-10.2); Carbon Dioxide 33 mmol/L (22-30); Chloride 103 mmol/L (98-107); Estimated CRCL calculation 47 ml/min; Estimated Glomerular Filt Rate > 60; Glucose 97 mg/dL (65-110); Potassium 4.2 mmol/L (3.4-5.0); Sodium 142 mmol/L (137-145); Total Protein 5.8 g/dL (6.3-8.2)
[2024-11-20 08:05] VITALS: O2SAT 96
[2024-11-20 09:50] VITALS: O2SAT 96
[2024-11-20 09:59] VITALS: PULSE 92
[2024-11-20] MEDS: FUROSEMIDE 20 MG TABLET PO (09:59)
[2024-11-20] MEDS: CALCIUM/VITAMIN D 500 MG/5 MCG (200 I.U.) TABLET PO ×2 (09:59→16:12)
[2024-11-20] MEDS: VALSARTAN 160 MG TABLET 320 MG PO (09:59)
[2024-11-20] MEDS: carvediloL 12.5 MG TABLET PO (09:59)
[2024-11-20] MEDS: PANTOPRAZOLE 40 MG TABLET PO (09:59)
[2024-11-20] MEDS: HYDROcodone/acetaminophen (*CRX) 5-325 MG TABLET 1 TAB PO (10:02)
--- NOTE | 2024-11-20 11:57 | PM.IMPN ---
Subjective Date/time seen: 11/20/24 11:57 Review of Systems Review of Systems: All systems reviewed & are unremarkable except as noted in HPI and below Objective Data Vital Signs Vital Signs: Vital Signs - 24 hr 11/19/24 14:00 11/19/24 20:00 11/19/24 21:06 Temperature 97.9 F Pulse Rate 73 73 Respiratory Rate 20 20 Blood Pressure 125/61 125/50 L Pulse Oximetry 98 98 98 Oxygen Delivery Nasal Cannula Oxygen Flow Rate 2 11/20/24 04:21 11/20/24 08:05 11/20/24 09:59 Temperature 97.2 F L Pulse Rate 62 92 Respiratory Rate 20 Blood Pressure 143/53 H Pulse Oximetry 99 96 Oxygen Delivery Nasal Cannula Oxygen Flow Rate 2 Intake/Output Intake/Output: Intake & Output 11/17/24 11/18/24 11/19/24 11/20/24 23:59 23:59 23:59 23:59 Intake Total 3756.7 2293.3 2158.7 300 Output Total 2500 2425 1775 200 Balance 1256.7 -131.7 383.7 100 Meds/Results Medications: Active Medications Generic Name Dose Route Start Last Admin Trade Name Freq PRN Reason Stop Dose Admin Acetaminophen 650 mg 11/11/24 10:57 11/18/24 21:45 Acetaminophen 325 Mg Tablet PO 650 mg Q4H PRN Administration Mild Pain (1-3) or Fever Hydrocodone Bitart/Acetaminophen 1 tab 11/16/24 12:28 Hydrocodone/Acetaminophen (*Crx) 5-325 Mg Tablet PO Q3H PRN Pain Rated 4-6 Hydrocodone Bitart/Acetaminophen 2 tab 11/16/24 12:28 Hydrocodone/Acetaminophen (*Crx) 5-325 Mg Tablet PO Q6H PRN Pain Rated 7-10 Albuterol 2 puff 11/19/24 08:54 Albuterol Sulfate (*Sp) Aerosol 1 Puff INHALATION Q6HRT PRN Shortness Of Breath Or Wheezing Alendronate Sodium 70 mg 11/15/24 06:30 11/15/24 06:30 Alendronate Sodium 70 Mg Tablet PO 70 mg We@0630 MIGUEL Administration Atorvastatin Calcium 80 mg 11/13/24 21:00 11/19/24 20:03 Atorvastatin 40 Mg Tablet PO 80 mg HS MIGUEL Administration Bisacodyl 10 mg 11/17/24 11:52 Bisacodyl 10 Mg Suppository RECTAL DAILY PRN Constipation Calcium Carbonate 500 mg 11/13/24 09:00 11/20/24 09:59 Calcium/Vitamin D 500 Mg/5 Mcg (200 I.U.) Tablet PO 500 mg BID MIGUEL Administration Carvedilol 12.5 mg 11/13/24 09:00 11/20/24 09:59 Carvedilol 12.5 Mg Tablet PO 12.5 mg DAILY MIGUEL Administration Docusate Sodium 100 mg 11/13/24 09:00 11/20/24 10:01 Docusate Sodium 100 Mg Capsule PO Not Given BID MIGUEL Furosemide 20 mg 11/13/24 09:00 11/20/24 09:59 Furosemide 20 Mg Tablet PO 20 mg DAILY MIGUEL Administration Ondansetron HCl 4 mg 11/11/24 10:57 11/16/24 13:40 Ondansetron Inj 4 Mg/2 Ml Vial IV PUSH 4 mg Q4H PRN Administration Nausea Pantoprazole Sodium 40 mg 11/13/24 09:00 11/20/24 09:59 Pantoprazole 40 Mg Tablet PO 40 mg QAM [facility] Administration Polyethylene Glycol 17 gm 11/17/24 09:00 11/20/24 10:01 Polyethylene Glycol 3350 17 Gm Powd.Pack PO Not Given QAM [facility] Senna/Docusate Sodium 2 tab 11/16/24 17:00 11/20/24 10:01 Senna/Docusate Sodium Tablet PO Not Given BID [facility] Valsartan 320 mg 11/13/24 09:00 11/20/24 09:59 Valsartan 160 Mg Tablet PO 320 mg QAM [facility] Administration Radiology Results: ITS Impressions Chest X-Ray 11/11/24 06:54 IMPRESSION: 1: NO ACUTE CARDIOPULMONARY DISEASE. Ankle X-Ray 11/11/24 09:28 Impression: 1: Significantly improved alignment of bimalleolar fractures. Head CT 11/11/24 09:55 IMPRESSION: 1. No acute intracranial abnormality. Intraoperative X-Ray 11/16/24 12:09 IMPRESSION: Fluoroscopy used during ORIF right ankle. Labs Labs: Laboratory Results - last 24 hr 11/20/24 04:29 WBC 5.9 RBC 3.21 L Hgb 9.5 L Hct 31.7 L MCV 98.8 MCH 29.6 MCHC 30.0 L RDW 13.2 Plt Count 162 MPV 9.1 Immature Gran % (Auto) 0.3 Neut % (Auto) 61.3 Lymph % (Auto) 21.7 [place] % (Auto) 8.8 H Eos % (Auto) 7.6 H Baso % (Auto) 0.3 Lymph # (Auto) 1.28 [place] # (Auto) 0.5 Eos # (Auto) 0.5 H Baso # (Auto) 0.0 Abs Immat Gran (auto) 0.02 Absolute Neuts (auto) 3.6 Absolute Nucleated RBC 0.000 Nucleated RBC % 0.0 Sodium 142 Potassium 4.2 Chloride 103 Carbon Dioxide 33 H Anion Gap 6 BUN 14 Creatinine 0.88 Estim Creat Clear Calc 47 Estimated GFR > 60 Glucose 97 Calcium 9.1 Total Bilirubin 0.6 AST 23 ALT 13 Alkaline Phosphatase 67 Total Protein 5.8 L Albumin 3.1 L
[2024-11-20] MEDS: ONDANSETRON HCL ODT 4 MG TABLET PO (12:47)
--- NOTE | 2024-11-20 13:04 | P.DS_ITS ---
DS: Admitting Diagnosis Discharge Date 11/20/2024 Admitting Diagnosis Fall, ankle injury. 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 Chest X-Ray 11/11/24 06:54 IMPRESSION: 1: NO ACUTE CARDIOPULMONARY DISEASE. Ankle X-Ray 11/11/24 09:28 Impression: 1: Significantly improved alignment of bimalleolar fractures. Head CT 11/11/24 09:55 IMPRESSION: 1. No acute intracranial abnormality. Intraoperative X-Ray 11/16/24 12:09 IMPRESSION: Fluoroscopy used during ORIF right ankle. EMY resolved. Urine culture negative. Open Reduction Internal Fixation Right Ankle on 11/16/24. PT/OT. Patient discharged to SNF for rehab. Status at Discharge Functional status at discharge: uses cane/walker Overall status at discharge: patient is not back to baseline Time Spent with Patient Time attestation: Total time spent providing and/or coordinating discharge services: Time spent: Greater than 30 minutes Exam Const: General: no acute distress and uncomfortable Resp: Effort & Inspection: normal respiratory effort Auscultation: diminished lung sounds Cardio: Rate: regular rate Rhythm: regular rhythm GI: GI Palp: Yes Soft to palpation Auscultation: normal bowel sounds Extrem: Other: RLL is splinted and casted, C/D/I, PMS intact. Psych: Mental Status: mental status grossly normal Affect: normal affect DS: Data Data Completed and Pending Labs on day of discharge: Labs from last 24 hours 11/20/24 04:29 WBC 5.9 RBC 3.21 L Hgb 9.5 L Hct 31.7 L MCV 98.8 MCH 29.6 MCHC 30.0 L RDW 13.2 Plt Count 162 MPV 9.1 Immature Gran % (Auto) 0.3 Neut % (Auto) 61.3 Lymph % (Auto) 21.7 [place] % (Auto) 8.8 H Eos % (Auto) 7.6 H Baso % (Auto) 0.3 Lymph # (Auto) 1.28 [place] # (Auto) 0.5 Eos # (Auto) 0.5 H Baso # (Auto) 0.0 Abs Immat Gran (auto) 0.02 Absolute Neuts (auto) 3.6 Absolute Nucleated RBC 0.000 Nucleated RBC % 0.0 Sodium 142 Potassium 4.2 Chloride 103 Carbon Dioxide 33 H Anion Gap 6 BUN 14 Creatinine 0.88 Estim Creat Clear Calc 47 Estimated GFR > 60 Glucose 97 Calcium 9.1 Total Bilirubin 0.6 AST 23 ALT 13 Alkaline Phosphatase 67 Total Protein 5.8 L Albumin 3.1 L Discharge Plan Discharge Attending physician on discharge: Chuck Olivarez Consulting providers: Chung Casillas Discharging Clinician: Lillie Dillon Anticipated Discharge Date/Time: 11/20/24 13:21 Patient Disposition: SNF Activity: other - see discharge instructions Diet: heart healthy Discharge Instructions: * Ensure Enlive BID. * STRICT non weight bearing Right Lower Extremity. * Follow up with Dr Casillas in 2 weeks. * PT/OT. * Elevate right leg when possible. * Report to provider any increased swelling, change in perfusion to right foot, or fever >101. Thank you for entrusting [facility] with your healthcare! Patient Instructions: How to Stop Smoking (GEN), Ankle Fracture (DC), Using Oxygen at Home (DC), Opioid Safety (DC) Patient Language: Icelandic Stand Alone Forms: General Discharge Information Follow-up/Referrals: Chung Casillas MD [Physician] - 2 Weeks [facility],EDIE Rosas [Primary Care Provider] - 1 Week Discharge Medications: New hydrocodone-acetaminophen 5-325 mg Tablet 1 tablet PO Q6H PRN (Reason: Pain Rated 4-6) Qty: 10 0RF sennosides-docusate sodium [Senokot-S] 8.6-50 mg Tablet 2 tab-cap PO BID Qty: 28 0RF Continued carvedilol 6.25 mg tablet 12.5 mg PO DAILY atorvastatin 40 mg tablet 80 mg PO HS alendronate 70 mg tablet 70 mg PO WEEKLY Rx Instructions: TAKES ON WEDNESDAY omeprazole 20 mg capsule,delayed release(DR/EC) 20 mg PO DAILY calcium carbonate-vitamin D3 600 mg-10 mcg (400 unit) tablet 1 tablet PO BID valsartan 320 mg tablet 320 mg PO DAILY Qty: 30 0RF furosemide 20 mg Tablet 20 mg PO DAILY 30 Days Qty: 30 0RF Discontinued Combivent Respimat 20-100 mcg/actuation mist 1 puff inhalation QID Qty: 4 0RF Rx Instructions: space evenly during waking hours Date of admission: 11/12/24 15:59 Primary Care Provider: Navneet,Cristiane Cruz Admitting Provider: Curly Corea Attending physician on admission: Curly Corea Condition: Improved Hospitalist MIPS Heart Failure (Exclusion) Patient has history of Heart Transplant or Left Ventricular Assistive Device?: No IF YES, STOP HERE Heart Failure (Qualifier) Patient has current or prior documentation of LVEF less than or equal to 40%, or mod/servere depressed LVSF?: No IF NO, STOP HERE
[2024-11-20 13:15] VITALS: BMI 28.3
[2024-11-20 13:50] VITALS: BP 105/41; PULSE 59; RESP 18; TEMP 36.5; O2SAT 98
== END 2024-11-20 17:55 | DRG 493 ==
LOC: ANHED 07:27 → ANH2MED 11:38
PROVIDERS: Orthopaedic Surgery; Physician Assistant; Admitting Provider Internal Medicine; Emergency Provider Emergency Medicine; PCP Nurse Practitioner; Visit Provider Nurse Practitioner Family
PROC: 0QSG04Z Reposition Right Tibia with Internal Fixation Device, Open Approach (ICD-10-PCS; principal; 2024-11-16 11:00)
DX: S82.851A Displaced trimalleolar fracture of right lower leg, initial encounter for closed fracture (principal); I50.42 Chronic combined systolic (congestive) and diastolic (congestive) heart failure; J96.11 Chronic respiratory failure with hypoxia; N17.9 Acute kidney failure, unspecified; W18.09XA Striking against other object with subsequent fall, initial encounter; J44.9 Chronic obstructive pulmonary disease, unspecified; I11.0 Hypertensive heart disease with heart failure; F03.90 Unspecified dementia, unspecified severity, without behavioral disturbance, psychotic disturbance, mood disturbance, and anxiety; E78.5 Hyperlipidemia, unspecified; R33.9 Retention of urine, unspecified; Z99.81 Dependence on supplemental oxygen; Z86.718 Personal history of other venous thrombosis and embolism; Z85.51 Personal history of malignant neoplasm of bladder
CPT/HCPCS: 27810; 36415; 70450; 71045; 73600; 80048; 80053; 81001; 83735; 83880; 85025; 85027; 85055; 87086; 93005; 96374; 96375; 97110; 97161; 97166; 97530; 97535; 99199; 99285; A9270; C1713; G0378; J0690; J1171; J2003; J2004; J2270; J2405; J2704; J7030

== ENCOUNTER 2025-01-29 10:17 | Observation (INO) | payer MEDICARE, MEDICAID, SELFPAY ==
--- NOTE | ~2025-01-29 | XR_ITS ---
Clinical history:Left hip pain EXAM:X-ray left hip 2 views with AP pelvis TECHNIQUE:3 images were obtained Comparisons:None available FINDINGS: Bones appear osteopenic. Moderate degenerative change in the hips. Vascular calcifications are presen t. No fracture. No dislocation. There is air and stool in large and small bowel which causes artifact which limits evaluation. There are a few less than 1 cm calcifications projected the pelvis which li annie represent phleboliths. IMPRESSION: 1. No acute fracture identified. 2. Moderate degenerative change in the hips. If symptoms persist or worsen, consider a short-term follow-up study or additional imaging for furthe r assessment Reviewed, dictated and finalized at location A. IMPRESSION: 1. No acute fracture identified. 2. Moderate degenerative change in the hips. If symptoms persist or worsen, consider a short-term follow-up study or additio nal imaging for further assessment
--- NOTE | ~2025-01-29 | XR_ITS ---
Clinical history:Left knee pain EXAM:X-ray left knee minimum 4 views TECHNIQUE:4 images of the left knee were obtained Comparisons:None available FINDINGS: Bones appear osteopenic. Vascular calcifications are present. No fracture. No dislocation. Mild joint space narrowing in the medial compartment and patellofemoral joint. Small suprapatellar effusion. IMPRESSION: 1. No acute bony abnormality. 2. Mild joint space narrowing in the medial compartment and patellofemoral joint. Reviewed, dictated and finalized at location A. IMPRESSION: 1. No acute bony abnormality. 2. Mild joint space narrowing in the medial compartment and patellofemoral join t.
--- NOTE | ~2025-01-29 | US_ITS ---
US venous doppler [facility] - 01/29/2025 12:00 CDT History: 79 years old Female with left lower extremity pain and swelling. Real-time sonographic images of the left lower extremity venous system were obtained. Color Doppler sonography and spectral waveform analysis were performed. No prior studies for comparison. The left sapheno-femoral junctions are patent. The left common femoral, superficial femoral, poplit eal and posterior tibial veins are compressible and without evidence of echogenic thrombus. Impression: No evidence of deep venous thrombosis Reviewed, dictated and finalized at location A. Impression: No evidence of deep venous thrombosis
--- NOTE | ~2025-01-29 | CT_ITS ---
EXAM: CT lumbar spine wo con - 01/29/2025 11:27 CDT History: 79 years old Female with low back pain, left leg pain Comparison None Technique Thin helical images obtained without intravenous contrast according to standard protocol. Coronal an d sagittal reformatted images are provided. Findings No fracture or gross subluxation is appreciated. Alignment is satisfactory. Mild multilevel degenerat kassie changes are seen in the spine. Diffuse disc bulges at L5-S1 and L4-5. No intraspinal or paraspinal mass or hematoma appreciated. Atherosclerotic ulcerations are seen. Ecta tic infrarenal aorta. No gross mass or adenopathy identified, considering lack of IV contrast for this exam. Impression: 1. No acute abnormality of the lumbar spine detected by CT. Reviewed, dictated and finalized at location A. Impression: 1. No acute abnormality of the lumbar spine detected by CT.
--- NOTE | 2025-01-29 10:43 | ED.LOWEXIN ---
HPI - Extremity Injury (Lower) General Chief Complaint: Extremity Injury, Lower Stated Complaint: left leg pain Time Seen by Provider: 01/29/25 10:26 Source: patient and family Mode of arrival: wheelchair Limitations: other (poor historian) History of Present Illness HPI Narrative: This is a 79 year old female that presents to the ER for left lower extremity pain. Daughter reports she was complaining of some lower back pain a couple of days ago. Had a ground level fall in November, sustained right ankle fracture. Is currently wearing a boot on the right foot. Today she was not able to ambulate due to pain in her left leg. Reports pain from the knee down into the foot. No other recent falls/injuries. She lives at home with daughters. Related Data Home Medications ?Medication ?Instructions ?Recorded ?Confirmed ?Last Taken ?Type atorvastatin 40 mg tablet 80 mg PO HS 07/18/20 01/29/25 01/28/25 History carvedilol 6.25 mg tablet 12.5 mg PO DAILY 07/18/20 01/29/25 01/29/25 History alendronate 70 mg tablet 70 mg PO WEEKLY 01/10/23 01/29/25 01/28/25 History calcium 600 mg (as 1 tablet PO BID 01/10/23 01/29/25 01/28/25 History carbonate)-vitamin D3 10 mcg (400 unit) tablet omeprazole 20 mg capsule,delayed 20 mg PO DAILY 01/10/23 01/29/25 01/29/25 History release Allergies Allergy/AdvReac Type Severity Reaction Status Date / Time No Known Allergies Allergy Unknown Verified 11/16/24 09:34 Review of Systems Review of Systems: All systems reviewed & are unremarkable except as noted in HPI and below PMFSH Past Medical History Medical History Pulmonary hypertension Cardiomyopathy Chronic respiratory failure with hypoxia, on home oxygen therapy Chronic obstructive pulmonary disease Combined systolic and diastolic congestive heart failure Echo, January 2023: Good systolic function, EF 60 65%, grade 2 diastolic dysfunction, moderate pulmonary hypertension and no significant valvular disease. Left leg DVT (09/2019) Hypertension Anxiety Bladder cancer (04/2011) Status post transurethral resection of bladder tumor with fulguration. Surgical History Surgical History History of open reduction and internal fixation (ORIF) procedure (07/2020) Repair left distal radial fracture History of transurethral resection of bladder tumor (TURBT) (04/2011) History of tonsillectomy and adenoidectomy Family History Family History Mother Sepsis Father Lung cancer Black lung disease Sibling Leukemia Social History Social History Social History: Surrogate medical decision maker: Elisabet Adams, daughter. Code status: Full code. Smoking packs per day: 0.5 Smoking cigarettes per day: 10.0 Years smoked: 45 Smoking pack-years: 22.50 Smoking status: Former smoker Alcohol intake: never Substance use: never Substance use type: does not use Do You Feel Safe in your Home?: Yes Lack of Transportation: No Lack of Food: Never True Current Housing: I Have Housing Concerned About Future Housing: No Difficulty Paying Gas/Electric Bills: No Difficulty Paying for Meds: No Currently Unemployed: No Education: High School Diploma/GED Difficulty w/ Childcare or Family Care: No Living arrangements: with family Additional living arrangements comments: as of 2017. She has 2 daughters. Occupation/Education: retired Additional occupation/education comments: Retired from a [employer]. Spiritual care concerns: No Agree to blood products: Yes Exam Narrative: GENERAL: Chronically ill-appearing, well-nourished, and in no acute distress. HEAD: Normocephalic, atraumatic. EYES: EOMI. ENT: Nares clear, no rhinorrhea or epistaxis. Mucous membranes moist. CHEST: Clear to auscultation. No respiratory distress. No wheezes rales or rhonchi HEART: Regular rate and rhythm. No murmur heard. Normal peripheral pulses. EXTREMITIES: Normal range of motion. No edema or erythema. Normal DP pulse. Normal sensation. Right foot is in boot SKIN: Warm, dry, no rash. NEURO: No focal deficits. Alert and oriented x3. PSYCH: Normal mood and affect Course Course Emergency Course: Patient was not able to get up with 2 person assist. Will consult hospitalist for admission Consultations Consultation #1: Spoke with hospitalist about patient and workup who accepts admission Date: 01/29/25 Vital Signs Vital signs: Vital Signs Pulse Oximetry 97 01/29/25 11:00 Oxygen Delivery Nasal Cannula 01/29/25 11:00 Oxygen Flow Rate 3 01/29/25 11:00 Temperature 96.3 F L 01/30/25 04:30 Pulse Rate 74 01/30/25 08:24 Respiratory Rate 20 01/30/25 04:30 Blood Pressure 153/57 H 01/30/25 04:30 Pulse Oximetry 99 01/30/25 08:00 Oxygen Delivery Nasal Cannula 01/30/25 08:00 Oxygen Flow Rate 3 01/30/25 08:00 MDM - Extremity Injury (Lower) MDM Narrative Medical decision making narrative: Patient presents to the emergency department for left lower extremity pain, low back pain. Recent history of right ankle fracture with surgical repair. She is currently wearing a boot. She lives at home with daughters, they report she has had difficulty ambulating today due to discomfort. They do not feel like they can take care of her at home at this time. She is neurovascularly intact. Cbc without leukocytosis. Metabolic panel with normal appearing kidney function. Left lower extremity venous Doppler without evidence of DVT. Left hip and knee x-rays without acute osseous abnormalities. Showed degenerative changes. CT lumbar spine without acute osseous abnormalities. Patient was not able to get up with 2 person assist. Will consult hospitalist for admission Differential Diagnosis Differential diagnosis: Likely other (Osteoarthritis, sciatica, muscle strain, DVT) Lab Data Attestation: I reviewed the patient's lab results. 01/30/25 07:35 01/30/25 07:35 Labs: Lab Results 01/29/25 Range/Units 12:24 WBC 6.6 (4.5-10.0) K/mm3 RBC 3.61 L (4.2-5.4) M/mm3 Hgb 10.8 L (12.0-15.0) g/dL Hct 36.2 L (37.0-47.0) % MCV 100.3 H (80-100) fl MCH 29.9 (26-34) pg MCHC 29.8 L (32-36) g/dl RDW 13.4 (11.5-14.5) % Plt Count 136 L (150-375) k/mm3 MPV 9.7 (7.4-10.4) fl Immature Gran % (Auto) 0.2 (0-0.5) % Neut % (Auto) 69.2 (45.5-73.1) % Lymph % (Auto) 17.0 L (18.3-44.2) % [place] % (Auto) 9.7 H (2.6-8.5) % Eos % (Auto) 3.6 (0-4.4) % Baso % (Auto) 0.3 (0.2-1.2) % Lymph # (Auto) 1.12 (0.9-3.2) K/mm3 [place] # (Auto) 0.6 (0.1-0.6) K/mm3 Eos # (Auto) 0.2 (0-0.3) K/mm3 Baso # (Auto) 0.0 (0.0-0.1) K/mm3 Abs Immat Gran (auto) 0.01 (0.00-0.031) K/mm3 Absolute Neuts (auto) 4.6 (1.3-6.7) K/mm3 Absolute Nucleated RBC 0.000 (0.0-0.012) K/mm3 Band Neutrophils % Not Reportable Nucleated RBC % 0.0 (0.0-0.2) % Platelet Estimate Decreased (Adequate) Hypochromasia 1+ Macrocytosis 1+ (NORMAL) Schistocytes None seen PT 13.0 (11.1-14.7) Seconds INR 1.0 APTT 28.5 (22.3-36.8) Seconds Sodium 140 (137-145) mmol/L Potassium 4.3 (3.4-5.0) mmol/L Chloride 98 (98-107) mmol/L Carbon Dioxide 38 H (22-30) mmol/L Anion Gap 4 (4-12) mmol/L BUN 20 H (7-17) mg/dL Creatinine 0.79 (0.7-1.0) mg/dL Estim Creat Clear Calc Not Reportable Estimated GFR > 60 (59 - ) Glucose 111 H (65-110) mg/dL Calcium 9.7 (8.4-10.2) mg/dL Imaging Data Radiologist's impression: ITS Impressions Lumbar Spine CT 01/29/25 11:47 Impression: 1. No acute abnormality of the lumbar spine detected by CT. Venous Doppler Study 01/29/25 12:00 Impression: No evidence of deep venous thrombosis Knee X-Ray 01/29/25 12:07 IMPRESSION: 1. No acute bony abnormality. 2. Mild joint space narrowing in the medial compartment and patellofemoral joint. Hip/Pelvis X-Ray 01/29/25 12:09 IMPRESSION: 1. No acute fracture identified. 2. Moderate degenerative change in the hips. If symptoms persist or worsen, consider a short-term follow-up study or additional imaging for further assessment Critical Care Time Critical Care Time Critical Care Time: No Discharge Plan Discharge Clinical Impression: Generalized weakness, Decreased mobility Low back pain Qualifiers: Chronicity: acute Back pain laterality: left Sciatica presence: with sciatica Sciatica laterality: sciatica of left side Qualified Code(s): M54.42 - Lumbago with sciatica, left side Patient Disposition: Still a Patient Condition: Stable
[2025-01-29 11:00] VITALS: O2SAT 97
--- OUTSIDE RECORDS SUMMARY | 2025-01-29 11:14 | XMS_ITS | Clinical Summary ---
Author Organization [facility] [address] Address [address] [place] [address] Care Team Providers Care Internal Auditor Name Role Phone Cristiane Toth MD Primary Care Provider [phone] Allergies No known active allergies Medications carvediloL [...] 12/19/2019 09/21/2020 Chronic anticoagulation 12/19/2019 04/0 10/2020 Surgical History Surgery Date Site/Laterality Comments TONSILLECTOMY [...] Comments Blood Pressure 162/80 08/17/2024 2:28 PM [employer] Pulse 69 08/17/2024 2:28 PM [employer] Temperature 36.3 C (97.3 F) 01/26/2020 11:14 AM CDT Respiratory Rate - - Oxygen Saturation 95% 08/17/2024 2:28 PM [employer] Inhaled Oxygen Concentration - - Weight 75.8 kg (167 lb) 08/17/2024 2:28 PM [employer]OUNT [employer] Height 167.6 cm (5' 6) 08/17/2024 2:28 PM [employer]OUNT [employer]GER [employer] Body Mass Index 26.95 08/17/2024 2:28 PM [employer]OUNT MA[employer]GER [employer] Plan of Treatment Health Maintenance Due Date Last Done Comments Depression Screening 1945 Fall Risk Assessment 1945 Hepatitis C Screening 1945 DTaP/Tdap/Td Vaccine (1 - Tdap) 1956 Hepatitis B Screening 11/02/1963 Pneumococcal vaccine 65+ (1 of 2 - PCV) 1964 Zoster Vaccine (1 of 2) 11/02/1995 Well Visit 65+ 2010 Osteoporosis Screening-Bone Density Scan 07/27/2024 07/27/2022 Influenza Vaccine (#1) 2025 04/06/2022 Breast Cancer Screening-Mammogram Discontinued 023 Insurance [facility] MEDIC[facility] Address: [facility] [address] [place] [address] Care Teams Internal Auditor Relationship Specialty Start Date End Date Cristiane Toth MD PCP - General Nurse Practitioner 03/27/21
[2025-01-29 11:19] VITALS: BP 121/70; PULSE 75; RESP 18; O2SAT 97
[2025-01-29] MEDS: ACETAMINOPHEN 500 MG TABLET 1000 MG PO (12:23)
[2025-01-29] MEDS: oxyCODONE HCL (*CRX) 5 MG TAB IR PO (12:23)
[2025-01-29 12:52] LABS: Hematocrit 36.2 % (37.0-47.0); Hemoglobin 10.8 g/dL (12.0-15.0); Immature Granulocyte Percent A 0.2 % (0-0.5); Lymphocytes Absolute Auto 1.12 K/mm3 (0.9-3.2); Mean Corpuscular HGB Conc 29.8 g/dl (32-36); Mean Corpuscular Hemoglobin 29.9 pg (26-34); Mean Corpuscular Volume 100.3 fl (80-100); Nucleated Red Blood Cells Absolute Auto 0.000 K/mm3 (0.0-0.012); Nucleated Red Blood Cells Perc 0.0 % (0.0-0.2); Platelet Count Result 136 k/mm3 (150-375); Red Blood Count 3.61 M/mm3 (4.2-5.4); White Blood Count 6.6 K/mm3 (4.5-10.0)
[2025-01-29 13:06] LABS: INR 1.0; Partial Thromboplastin Time 28.5 Seconds (22.3-36.8); Prothrombin Time 13.0 Seconds (11.1-14.7)
[2025-01-29 13:14] LABS: Anion Gap 4 mmol/L (4-12); Blood Urea Nitrogen 20 mg/dL (7-17); Calcium 9.7 mg/dL (8.4-10.2); Carbon Dioxide 38 mmol/L (22-30); Chloride 98 mmol/L (98-107); Estimated Glomerular Filt Rate > 60; Glucose 111 mg/dL (65-110); Potassium 4.3 mmol/L (3.4-5.0); Sodium 140 mmol/L (137-145)
[2025-01-29 13:18] LABS: Hypochromasia 1+; Macrocytosis 1+ (NORMAL)
[2025-01-29 13:19] LABS: Schistocytes None Seen
[2025-01-29] MEDS: LIDOCAINE 5% PATCH 1 PATCH TRANSDERM (15:59)
[2025-01-29 16:41] VITALS: BP 151/72; PULSE 67; RESP 16; O2SAT 99
[2025-01-29 17:40] VITALS: BP 146/55; PULSE 65; RESP 17; TEMP 36.2; O2SAT 91
--- NOTE | 2025-01-29 17:40 | ADMGEN ---
This patient, Felipa Adams, was admitted to 3 [facility] Surg Room 316-01. Patient/family oriented to hospital policies and general routines including ID bracelet, bed and alarms, visiting hours, pain management, procedures, bathroom and other care routines, personal items, smoking policy, room service/diet, and visiting hours. Information on how to activate the Rapid Response Team has been discussed. Patient/Family are encouraged to report perceived risks to care and to ask questions if they do not understand what they are told or what they should do.
[2025-01-29 17:42] VITALS: O2SAT 93; BMI 26.6
--- NOTE | 2025-01-29 19:51 | P.HP_ITS ---
H&P: HPI History of Present Illness Date/Time: 01/29/25 19:51 Chief Complaint: Left Leg Pain Narrative: 79 y/o F with PMH of chronic respiratory failure with hypoxia on home O2, COPD, pulmonary hypertension, combined systolic/diastolic CHF, DVT (), hypertension, anxiety, cardiomyopathy, and bladder cancer s/p TURBT. The patient presents here from home on 01/29 for further evaluation of left lower extremity pain. The patient's daughter reports the pain initially started as low back pain. The patient however reports she only has pain in her left lower extremity which started less than a week ago. Pain was not precipitated by any recent injury or fall. The patient did sustain a ground level fall back at the end of October of 2024 for she sustained a right ankle fracture (bimalleolar). She is currently in a boot for this problem. Due to the pain, the patient reports she has been unable to ambulate. She describes the pain as starting at the knee and radiating into her foot with no associated numbness. Patient is a difficult historian at this time. She distally denies any urinary symptoms. Initial VS at presentation: 97.1? F, HR 75, R 18, 121/70, and 97% on 3L nasal cannula. ED workup showed: No leukocytosis, hemoglobin 10.8 (9.5 on 11/20/2024), normal coags, no significant electrolyte derangements, creatinine 0.79 and GFR >60, glucose 111. CT lumbar spine showed no acute abnormality. US of the left lower extremity showed no DVT. Knee XR (L) showed no acute bony abnormality and mild joint space narrowing of medial compartment and patellofemoral joint. Hip/pelvic XR showed no acute fracture and moderate degenerative changes in the hips. Review of Systems Review of Systems: All systems reviewed & are unremarkable except as noted in HPI and below [facility] Past Medical History Medical History Pulmonary hypertension Cardiomyopathy Chronic respiratory failure with hypoxia, on home oxygen therapy Chronic obstructive pulmonary disease Combined systolic and diastolic congestive heart failure Echo, January 2023: Good systolic function, EF 60 65%, grade 2 diastolic dysfunction, moderate pulmonary hypertension and no significant valvular disease. Left leg DVT (09/2019) Hypertension Anxiety Bladder cancer (04/2011) Status post transurethral resection of bladder tumor with fulguration. Surgical History Surgical History History of open reduction and internal fixation (ORIF) procedure (07/2020) Repair left distal radial fracture History of transurethral resection of bladder tumor (TURBT) (04/2011) History of tonsillectomy and adenoidectomy Family History Family History Mother Sepsis Father Lung cancer Black lung disease Sibling Leukemia Social History Social History Social History: Surrogate medical decision maker: Elisabet Adams, daughter. Code status: Full code. Smoking packs per day: 0.5 Smoking cigarettes per day: 10.0 Years smoked: 45 Smoking pack-years: 22.50 Smoking status: Former smoker Alcohol intake: never Substance use: never Substance use type: does not use Do You Feel Safe in your Home?: Yes Lack of Transportation: No Lack of Food: Never True Current Housing: I Have Housing Concerned About Future Housing: No Difficulty Paying Gas/Electric Bills: No Difficulty Paying for Meds: No Currently Unemployed: No Education: High School Diploma/GED Difficulty w/ Childcare or Family Care: No Living arrangements: with family Additional living arrangements comments: as of 2017. She has 2 daughters. Occupation/Education: retired Additional occupation/education comments: Retired from a [employer]. Spiritual care concerns: No Agree to blood products: Yes Meds Home Medications and Allergies Home Medications ?Medication ?Instructions ?Recorded ?Confirmed ?Type furosemide 20 mg tablet 20 mg PO DAILY 30 days #30 tabs 09/23/19 01/29/25 Rx atorvastatin 40 mg tablet 80 mg PO HS 07/18/20 01/29/25 History carvedilol 6.25 mg tablet 12.5 mg PO DAILY 07/18/20 01/29/25 History alendronate 70 mg tablet 70 mg PO WEEKLY 01/10/23 01/29/25 History calcium 600 mg (as 1 tablet PO BID 01/10/23 01/29/25 History carbonate)-vitamin D3 10 mcg (400 unit) tablet omeprazole 20 mg capsule,delayed 20 mg PO DAILY 01/10/23 01/29/25 History release valsartan 320 mg tablet 320 mg PO DAILY #30 tabs 01/15/23 01/29/25 Rx sennosides 8.6 mg-docusate sodium 2 tab-cap (2 x 8.6-50 mg) PO BID 11/20/24 01/29/25 Rx 50 mg tablet (Senokot-S) #28 tabs Allergies Allergy/AdvReac Type Severity Reaction Status Date / Time No Known Allergies Allergy Unknown Verified 11/16/24 09:34 Vital Signs Vital Signs - 24 hr 01/29/25 11:00 01/29/25 11:19 01/29/25 16:41 Temperature Pulse Rate 75 67 Respiratory Rate 18 16 Blood Pressure 121/70 151/72 H Pulse Oximetry 97 97 99 Oxygen Delivery Nasal Cannula Nasal Cannula Oxygen Flow Rate 3 3 01/29/25 17:40 01/29/25 17:42 Temperature 97.1 F L Pulse Rate 65 Respiratory Rate 17 Blood Pressure 146/55 H Pulse Oximetry 91 93 Oxygen Delivery Nasal Cannula Oxygen Flow Rate 3 Exam Const: General: comfortable and no acute distress Other: , female, elderly, nontoxic appearance HENMT: Face/Nose/Sinus: Normal nares present Mouth: Yes moist mucous membranes Eyes: General: appearance normal, both eyes and all related structures Sclera: sclerae normal Pupils: Equal, round and reactive pupils present EOM: EOMs intact bilaterally Resp: Effort & Inspection: normal respiratory effort Auscultation: clear to auscultation bilaterally Other: Nasal cannula place, tolerating well Cardio: Rate: regular rate Rhythm: regular rhythm Other: S1-S2 present without murmur, rub, ectopy GI: Other: Abdomen soft, nondistended, nontender. Normoactive bowel sounds in all quadrants. Skin: General skin exam: normal color and no rashes or lesions noted Wounds: no wounds Neuro: Speech: normal speech Sensory Exam: normal sensation Other: +generalized weakness. A&O x3 Extrem: Other: No tenderness to the knee or along the left lower extremity. Boot to the right lower extremity. Psych: Mental Status: mental status grossly normal Affect: normal affect Other: Fair insight and judgment. Disagreeable. H&P: Results Labs Labs: Short CBC 01/29/25 Range/Units 12:24 WBC 6.6 (4.5-10.0) K/mm3 Hgb 10.8 L (12.0-15.0) g/dL Hct 36.2 L (37.0-47.0) % Plt Count 136 L (150-375) k/mm3 [facility] 01/29/25 12:24 Sodium 140 Potassium 4.3 Chloride 98 Carbon Dioxide 38 H BUN 20 H Creatinine 0.79 Glucose 111 H Calcium 9.7 Assessment and Plan Assessment and plan (1) Left leg pain: Code(s): M79.605 - Pain in left leg Status: Acute Assessment and Plan: 01/29 * Lumbar CT: No acute abnormality of the lumbar spine detected by CT. * US LLE: No evidence of DVT * Knee XR, L: No acute bony abnormality. Mild joint space narrowing of the medial compartment and patellofemoral joint. * Hip/pelvic XR: No acute fracture. Moderate degenerative changes in the hips. - PT/OT eval and treat - care coordination consulted for possible rehab - analgesics prn Suspicion LLE pain secondary to compensatory gait secondary to boot in place for recent bimalleolar . fracture (2) Bimalleolar fracture of right ankle: Qualifiers: Encounter type: subsequent encounter Fracture healing: with routine healing Fracture type: closed Qualified Code(s): S82.841D - Displaced bimalleolar fracture of right lower leg, subsequent encounter for closed fracture with routine healing Code(s): S82.841A - Displaced bimalleolar fracture of right lower leg, initial encounter for closed fracture Status: Acute Assessment and Plan: - Hx of GLF resulting in a bimalleolar fracture on 11/11 - continue LLE boot (3) Chronic respiratory failure with hypoxia, on home oxygen therapy: Code(s): J96.11 - Chronic respiratory failure with hypoxia; Z99.81 - Dependence on supplemental oxygen Status: Chronic Assessment and Plan: - chronic respiratory failure with hypoxia on home O2. Requires 3L at baseline, no increased need at present. (4) Chronic obstructive pulmonary disease: Qualifiers: COPD type: unspecified COPD Qualified Code(s): J44.9 - Chronic obstructive pulmonary disease, unspecified Code(s): J44.9 - Chronic obstructive pulmonary disease, unspecified Status: Chronic Assessment and Plan: - no current evidence of exacerbation (5) Hypertension: Qualifiers: Hypertension type: primary hypertension Qualified Code(s): I10 - Essential (primary) hypertension Code(s): I10 - Essential (primary) hypertension Status: Chronic Assessment and Plan: - chronic, currently 146/55 - continue home medications: Valsartan, Coreg - monitor Plan Diet: heart healthy GI Prophylaxis: n/a DVT Prophylaxis: Lovenox IV fluids: none Lines/Tubes: peripheral IV Code Status: full code Quality VTE Prophylaxis VTE prophylaxis: pharmacologic ordered Hospitalist MIPS Advance Care Plan I have confirmed that the patient's Advanced Care Plan is present, code status is documented, or surrogate decision maker is listed in patient medical record.: Yes Medication Reconciliation I have utilized all available resources to obtain, update and review the patients current medications (includes all prescriptions, OTC, herbals, cannabis, and nutritional supplements).: Yes
[2025-01-29 20:10] VITALS: BP 151/59; PULSE 70; RESP 18; TEMP 35.9; O2SAT 98
[2025-01-29] MEDS: ATORVASTATIN 40 MG TABLET 80 MG PO (21:14)
[2025-01-30] VITALS (7 sets, daily range): BP systolic 127–153; BP diastolic 55–62; PULSE 61–74; RESP 18–20; TEMP 35.7–36.4; O2SAT 96–100
[2025-01-30 01:09] LABS: Add Urine Microscopic? YES; Appearance Urine Clear (Clear); Glucose Urine UA Negative (Negative); Leukocyte Esterase Ur 2+ LEU/UL (Negative); Nitrate Urine Positive (Negative); Specific Grav Ur 1.020 (1.001-1.035)
[2025-01-30 01:53] LABS: Need Manual Microscopic Reviewed
--- NOTE | 2025-01-30 07:14 | PM.IMPN ---
Progress Note: A&P Assessment and Plan (1) Left leg pain: Code(s): M79.605 - Pain in left leg Status: Acute Assessment and Plan: Lumbar CT: No acute abnormality of the lumbar spine detected by CT. US LLE: No evidence of DVT Knee XR, L: No acute bony abnormality. Mild joint space narrowing of the medial compartment and patellofemoral joint. Hip/pelvic XR: No acute fracture. Moderate degenerative changes in the hips. care coordination consulted for possible rehab analgesics prn Suspicion LLE pain secondary to compensatory gait secondary to boot in place for recent bimalleolar fracture PT/OT eval pending - likely will rec SNF Working with CC regarding placement (2) Bimalleolar fracture of right ankle: Qualifiers: Encounter type: subsequent encounter Fracture healing: with routine healing Fracture type: closed Qualified Code(s): S82.841D - Displaced bimalleolar fracture of right lower leg, subsequent encounter for closed fracture with routine healing Code(s): S82.841A - Displaced bimalleolar fracture of right lower leg, initial encounter for closed fracture Status: Acute Assessment and Plan: Hx of GLF resulting in a bimalleolar fracture on 11/11 continue LLE boot (3) Chronic respiratory failure with hypoxia, on home oxygen therapy: Code(s): J96.11 - Chronic respiratory failure with hypoxia; Z99.81 - Dependence on supplemental oxygen Status: Chronic Assessment and Plan: chronic respiratory failure with hypoxia on home O2. Requires 3L at baseline, no increased need at present. (4) Chronic obstructive pulmonary disease: Qualifiers: COPD type: unspecified COPD Qualified Code(s): J44.9 - Chronic obstructive pulmonary disease, unspecified Code(s): J44.9 - Chronic obstructive pulmonary disease, unspecified Status: Chronic Assessment and Plan: no current evidence of exacerbation (5) Hypertension: Qualifiers: Hypertension type: primary hypertension Qualified Code(s): I10 - Essential (primary) hypertension Code(s): I10 - Essential (primary) hypertension Status: Chronic Assessment and Plan: chronic, currently 146/55 continue home medications: Valsartan, Coreg monitor Plan Diet: heart healthy GI Prophylaxis: n/a DVT Prophylaxis: Lovenox IV fluids: none Lines/Tubes: peripheral IV Code Status: full code Subjective Date/time seen: 01/30/25 07:14 Interval history: 79 y/o F with PMH of chronic respiratory failure with hypoxia on home O2, COPD, pulmonary hypertension, combined systolic/diastolic CHF, DVT (2019, LL), hypertension, anxiety, cardiomyopathy, and bladder cancer s/p TURBT. 01/30/2025 Patient sitting comfortably in bed at time of examination. Denies any pain or complaints at this time. Working with care coordination regarding placement as patient is unable to stand on her own without assistance. PT/OT evaluations are pending. Review of Systems Review of Systems: All systems reviewed & are unremarkable except as noted in HPI and below Exam Const: General: comfortable and no acute distress Other: , female, elderly, nontoxic appearance HENMT: Face/Nose/Sinus: Normal nares present Mouth: Yes moist mucous membranes Eyes: General: appearance normal, both eyes and all related structures Sclera: sclerae normal Pupils: Equal, round and reactive pupils present EOM: EOMs intact bilaterally Resp: Effort & Inspection: normal respiratory effort Auscultation: clear to auscultation bilaterally Other: Nasal cannula place, tolerating well Cardio: Rate: regular rate Rhythm: regular rhythm Other: S1-S2 present without murmur, rub, ectopy GI: Other: Abdomen soft, nondistended, nontender. Normoactive bowel sounds in all quadrants. Skin: General skin exam: normal color and no rashes or lesions noted Wounds: no wounds Neuro: Cranial nerves: Yes Equal, round and reactive pupils present Speech: normal speech Sensory Exam: normal sensation Other: +generalized weakness. A&O x3 Extrem: Other: No tenderness to the knee or along the left lower extremity. Boot to the right lower extremity. Psych: Mental Status: mental status grossly normal Affect: normal affect Other: Fair insight and judgment. Disagreeable. Objective Data Vital Signs Vital Signs: Vital Signs - 24 hr 01/29/25 11:00 01/29/25 11:19 01/29/25 16:41 Temperature Pulse Rate 75 67 Respiratory Rate 18 16 Blood Pressure 121/70 151/72 H Pulse Oximetry 97 97 99 Oxygen Delivery Nasal Cannula Nasal Cannula Oxygen Flow Rate 3 3 01/29/25 17:40 01/29/25 17:42 01/29/25 20:00 Temperature 97.1 F L Pulse Rate 65 Respiratory Rate 17 Blood Pressure 146/55 H Pulse Oximetry 91 93 Oxygen Delivery Nasal Cannula Room Air Oxygen Flow Rate 3 01/29/25 20:10 01/30/25 04:30 Temperature 96.6 F L 96.3 F L Pulse Rate 70 69 Respiratory Rate 18 20 Blood Pressure 151/59 H 153/57 H Pulse Oximetry 98 98 Oxygen Delivery Oxygen Flow Rate Intake/Output Intake/Output: Intake & Output 01/27/25 01/28/25 01/29/25 01/30/25 23:59 23:59 23:59 23:59 Intake Total 240 100 Balance 240 100 Meds/Results Medications: Active Medications Generic Name Dose Route Start Last Admin Trade Name Freq PRN Reason Stop Dose Admin Acetaminophen 650 mg 01/29/25 20:41 Acetaminophen 325 Mg Tablet PO Q6H PRN Mild Pain (1-3) or Fever Hydrocodone Bitart/Acetaminophen 1 tab 01/29/25 20:41 Hydrocodone/Acetaminophen (*Crx) 5-325 Mg Tablet PO Q6H PRN Pain Rated 4-6 Alendronate Sodium 70 mg 01/31/25 06:30 Alendronate Sodium 70 Mg Tablet PO We@0630 [facility] Atorvastatin Calcium 80 mg 01/29/25 21:00 01/29/25 21:14 Atorvastatin 40 Mg Tablet PO 80 mg HS [facility] Administration Calcium Carbonate 500 mg 01/30/25 09:00 Calcium/Vitamin D 500 Mg/5 Mcg (200 I.U.) Tablet PO BID [facility] Carvedilol 12.5 mg 01/30/25 09:00 Carvedilol 12.5 Mg Tablet PO DAILY [facility] Enoxaparin Sodium 40 mg 01/30/25 09:00 Enoxaparin 40 Mg/0.4 Ml Syringe SUB-Q DAILY [facility] Furosemide 20 mg 01/30/25 09:00 Furosemide 20 Mg Tablet PO DAILY [facility] Morphine Sulfate 2 mg 01/29/25 20:41 Morphine Sulfate (*Crx) 2 Mg/Ml Inj IV PUSH Q4H PRN Pain Rated 7-10 Ondansetron HCl 4 mg 01/29/25 20:41 Ondansetron Hcl Odt 4 Mg Tablet PO Q6H PRN Nausea And Vomiting Pantoprazole Sodium 40 mg 01/30/25 09:00 Pantoprazole 40 Mg Tablet PO QAM [facility] Polyethylene Glycol 17 gm 01/29/25 20:41 Polyethylene Glycol 3350 17 Gm Powd.Pack PO QAM PRN Constipation Senna/Docusate Sodium 2 tab 01/30/25 09:00 Senna/Docusate Sodium Tablet PO BID [facility] Valsartan 320 mg 01/30/25 09:00 Valsartan 160 Mg Tablet PO DAILY [facility] Radiology Results: ITS Impressions Lumbar Spine CT 01/29/25 11:47 Impression: 1. No acute abnormality of the lumbar spine detected by CT. Venous Doppler Study 01/29/25 12:00 Impression: No evidence of deep venous thrombosis Knee X-Ray 01/29/25 12:07 IMPRESSION: 1. No acute bony abnormality. 2. Mild joint space narrowing in the medial compartment and patellofemoral joint. Hip/Pelvis X-Ray 01/29/25 12:09 IMPRESSION: 1. No acute fracture identified. 2. Moderate degenerative change in the hips. If symptoms persist or worsen, consider a short-term follow-up study or additional imaging for further assessment Labs Labs: Laboratory Results - last 24 hr 01/29/25 01/29/25 12:24 23:23 WBC 6.6 RBC 3.61 L Hgb 10.8 L Hct 36.2 L MCV 100.3 H MCH 29.9 MCHC 29.8 L RDW 13.4 Plt Count 136 L MPV 9.7 Immature Gran % (Auto) 0.2 Neut % (Auto) 69.2 Lymph % (Auto) 17.0 L [place] % (Auto) 9.7 H Eos % (Auto) 3.6 Baso % (Auto) 0.3 Lymph # (Auto) 1.12 [place] # (Auto) 0.6 Eos # (Auto) 0.2 Baso # (Auto) 0.0 Abs Immat Gran (auto) 0.01 Absolute Neuts (auto) 4.6 Absolute Nucleated RBC 0.000 Band Neutrophils % Not Reportable Nucleated RBC % 0.0 Platelet Estimate Decreased Hypochromasia 1+ Macrocytosis 1+ Schistocytes None seen PT 13.0 INR 1.0 APTT 28.5 Sodium 140 Potassium 4.3 Chloride 98 Carbon Dioxide 38 H Anion Gap 4 BUN 20 H Creatinine 0.79 Estim Creat Clear Calc Not Reportable Estimated GFR > 60 Glucose 111 H Calcium 9.7 Urine Color Yellow Urine Appearance Clear Urine pH 6.5 Ur Specific [place] 1.020 Urine Protein Negative Urine Glucose (UA) Negative Urine Ketones Trace H Ur Blood (Man) Negative Urine Nitrate Positive H Urine Bilirubin Negative Urine Urobilinogen 1.0 Add Ur Microanalysis Reviewed Leukocyte Esterase Rfl 2+ H Urine RBC 0-2 Urine WBC 21-50 H Ur Squamous Epith Cells Occasional Urine Bacteria 1+ H Quality VTE Prophylaxis VTE prophylaxis: pharmacologic ordered
[2025-01-30 08:03] LABS: Hematocrit 36.0 % (37.0-47.0); Hemoglobin 10.9 g/dL (12.0-15.0); Immature Granulocyte Percent A 0.2 % (0-0.5); Lymphocytes Absolute Auto 0.96 K/mm3 (0.9-3.2); Mean Corpuscular HGB Conc 30.3 g/dl (32-36); Mean Corpuscular Hemoglobin 30.1 pg (26-34); Mean Corpuscular Volume 99.4 fl (80-100); Nucleated Red Blood Cells Absolute Auto 0.000 K/mm3 (0.0-0.012); Nucleated Red Blood Cells Perc 0.0 % (0.0-0.2); Platelet Count Result 132 k/mm3 (150-375); Red Blood Count 3.62 M/mm3 (4.2-5.4); White Blood Count 5.2 K/mm3 (4.5-10.0)
[2025-01-30] MEDS: PANTOPRAZOLE 40 MG TABLET PO (08:24)
[2025-01-30] MEDS: CALCIUM/VITAMIN D 500 MG/5 MCG (200 I.U.) TABLET PO ×2 (08:24→16:25)
[2025-01-30] MEDS: SENNA/DOCUSATE SODIUM TABLET 2 TAB PO ×2 (08:24→16:25)
[2025-01-30 08:25] LABS: Alanine Aminotransferase 17 U/L (6-35); Albumin Level 3.8 g/dL (3.5-5.1); Alkaline Phosphatase 65 U/L (38-126); Anion Gap 3 mmol/L (4-12); Aspartate Amino Transferase 23 U/L (14-36); Bilirubin,Total 0.5 mg/dL (0.2-1.3); Blood Urea Nitrogen 22 mg/dL (7-17); Calcium 9.0 mg/dL (8.4-10.2); Carbon Dioxide 37 mmol/L (22-30); Chloride 101 mmol/L (98-107); Estimated CRCL calculation 40 ml/min; Estimated Glomerular Filt Rate 60; Glucose 94 mg/dL (65-110); Potassium 4.5 mmol/L (3.4-5.0); Sodium 141 mmol/L (137-145); Total Protein 6.1 g/dL (6.3-8.2)
[2025-01-30] MEDS: FUROSEMIDE 20 MG TABLET PO (08:25)
[2025-01-30] MEDS: VALSARTAN 160 MG TABLET 320 MG PO (08:25)
[2025-01-30] MEDS: ENOXAPARIN 40 MG/0.4 ML SYRINGE SUB-Q (08:25)
[2025-01-30] MEDS: ATORVASTATIN 40 MG TABLET 80 MG PO (21:20)
[2025-01-31] VITALS (7 sets, daily range): BP systolic 117–136; BP diastolic 44–62; PULSE 56–72; RESP 18–20; TEMP 35.9–36.5; O2SAT 96–100
[2025-01-31 06:01] LABS: Hematocrit 35.3 % (37.0-47.0); Hemoglobin 10.7 g/dL (12.0-15.0); Immature Granulocyte Percent A 0.2 % (0-0.5); Lymphocytes Absolute Auto 1.17 K/mm3 (0.9-3.2); Mean Corpuscular HGB Conc 30.3 g/dl (32-36); Mean Corpuscular Hemoglobin 30.4 pg (26-34); Mean Corpuscular Volume 100.3 fl (80-100); Nucleated Red Blood Cells Absolute Auto 0.000 K/mm3 (0.0-0.012); Nucleated Red Blood Cells Perc 0.0 % (0.0-0.2); Platelet Count Result 126 k/mm3 (150-375); Red Blood Count 3.52 M/mm3 (4.2-5.4); White Blood Count 5.6 K/mm3 (4.5-10.0)
[2025-01-31] MEDS: ALENDRONATE SODIUM 70 MG TABLET PO (06:05)
[2025-01-31 06:22] LABS: Alanine Aminotransferase 14 U/L (6-35); Albumin Level 3.7 g/dL (3.5-5.1); Alkaline Phosphatase 65 U/L (38-126); Anion Gap 4 mmol/L (4-12); Aspartate Amino Transferase 22 U/L (14-36); Bilirubin,Total 0.5 mg/dL (0.2-1.3); Blood Urea Nitrogen 21 mg/dL (7-17); Calcium 8.8 mg/dL (8.4-10.2); Carbon Dioxide 34 mmol/L (22-30); Chloride 100 mmol/L (98-107); Estimated CRCL calculation 39 ml/min; Estimated Glomerular Filt Rate 58; Glucose 95 mg/dL (65-110); Potassium 4.2 mmol/L (3.4-5.0); Sodium 138 mmol/L (137-145); Total Protein 6.2 g/dL (6.3-8.2)
[2025-01-31] MEDS: VALSARTAN 160 MG TABLET 320 MG PO (08:25)
[2025-01-31] MEDS: SENNA/DOCUSATE SODIUM TABLET 2 TAB PO (08:26)
[2025-01-31] MEDS: FUROSEMIDE 20 MG TABLET PO (08:27)
[2025-01-31] MEDS: ENOXAPARIN 40 MG/0.4 ML SYRINGE SUB-Q (08:27)
[2025-01-31] MEDS: PANTOPRAZOLE 40 MG TABLET PO (08:27)
[2025-01-31] MEDS: CALCIUM/VITAMIN D 500 MG/5 MCG (200 I.U.) TABLET PO ×2 (08:27→18:22)
--- NOTE | 2025-01-31 12:00 | P.PNIM_ITS ---
Progress Note: A&P Assessment and Plan (1) Left leg pain: Code(s): M79.605 - Pain in left leg Status: Acute Assessment and Plan: * Lumbar CT: No acute abnormality of the lumbar spine detected by CT. * US LLE: No evidence of DVT * Knee XR, L: No acute bony abnormality. Mild joint space narrowing of the medial compartment and patellofemoral joint. * Hip/pelvic XR: No acute fracture. Moderate degenerative changes in the hips. * care coordination consulted for possible rehab * analgesics prn * Suspicion LLE pain secondary to compensatory gait secondary to boot in place for recent bimalleolar fracture * PT/OT eval - recommends SNF * Working with CC regarding placement (2) Bimalleolar fracture of right ankle: Qualifiers: Encounter type: subsequent encounter Fracture type: closed Fracture healing: with routine healing Qualified Code(s): S82.841D - Displaced bimalleolar fracture of right lower leg, subsequent encounter for closed fracture with routine healing Code(s): S82.841A - Displaced bimalleolar fracture of right lower leg, initial encounter for closed fracture Status: Acute Assessment and Plan: * Hx of GLF resulting in a bimalleolar fracture on 11/11 * continue LLE boot (3) Chronic respiratory failure with hypoxia, on home oxygen therapy: Code(s): J96.11 - Chronic respiratory failure with hypoxia; Z99.81 - Dependence on supplemental oxygen Status: Chronic Assessment and Plan: * chronic respiratory failure with hypoxia on home O2. Requires 3L at baseline, no increased need at present. (4) Chronic obstructive pulmonary disease: Qualifiers: COPD type: unspecified COPD Qualified Code(s): J44.9 - Chronic obstructive pulmonary disease, unspecified Code(s): J44.9 - Chronic obstructive pulmonary disease, unspecified Status: Chronic Assessment and Plan: * no current evidence of exacerbation (5) Hypertension: Qualifiers: Hypertension type: primary hypertension Qualified Code(s): I10 - Essential (primary) hypertension Code(s): I10 - Essential (primary) hypertension Status: Chronic Assessment and Plan: * chronic, currently 136/44 * continue home medications: Valsartan, Coreg * monitor Plan Diet: heart healthy GI Prophylaxis: n/a DVT Prophylaxis: Lovenox IV fluids: none Lines/Tubes: peripheral IV Code Status: full code Subjective Date/time seen: 01/31/25 12:00 Interval history: 79 y/o F with PMH of chronic respiratory failure with hypoxia on home O2, COPD, pulmonary hypertension, combined systolic/diastolic CHF, DVT (2019, LL), hypertension, anxiety, cardiomyopathy, and bladder cancer s/p TURBT. 01/31/2025 Patient sitting comfortably in bed at time of examination. Denies any pain or complaints at this time. [facility] denied placement, working with CC regarding placement now. No overnight events, or otherwise concerns at this time. Review of Systems Review of Systems: All systems reviewed & are unremarkable except as noted in HPI and below Exam Const: General: comfortable and no acute distress Other: , female, elderly, nontoxic appearance HENMT: Face/Nose/Sinus: Normal nares present Mouth: Yes moist mucous membranes Eyes: General: appearance normal, both eyes and all related structures Sclera: sclerae normal Pupils: Equal, round and reactive pupils present EOM: EOMs intact bilaterally Resp: Effort & Inspection: normal respiratory effort Auscultation: clear to auscultation bilaterally Other: Nasal cannula place, tolerating well Cardio: Rate: regular rate Rhythm: regular rhythm Other: S1-S2 present without murmur, rub, ectopy GI: Other: Abdomen soft, nondistended, nontender. Normoactive bowel sounds in all quadrants. Skin: General skin exam: normal color and no rashes or lesions noted Wounds: no wounds Neuro: Cranial nerves: Yes Equal, round and reactive pupils present Speech: normal speech Sensory Exam: normal sensation Other: +generalized weakness. A&O x3 Extrem: Other: No tenderness to the knee or along the left lower extremity. Boot to the right lower extremity. Psych: Mental Status: mental status grossly normal Affect: normal affect Other: Fair insight and judgment. Disagreeable. Objective Data Vital Signs Vital Signs: Vital Signs - 24 hr 01/30/25 15:05 01/30/25 16:00 01/30/25 21:20 Temperature 97.6 F 96.5 F L Pulse Rate 64 63 Respiratory Rate 18 20 Blood Pressure 130/58 L 144/62 H Pulse Oximetry 100 100 Oxygen Delivery Nasal Cannula Oxygen Flow Rate 3 Fraction of Inspired Oxygen 01/30/25 22:33 01/31/25 01:05 01/31/25 05:45 Temperature 97.7 F 97.6 F Pulse Rate 68 64 56 L Respiratory Rate 20 20 18 Blood Pressure 127/62 136/44 L Pulse Oximetry 96 96 100 Oxygen Delivery Room Air Oxygen Flow Rate Fraction of Inspired Oxygen 21 01/31/25 08:00 01/31/25 08:25 Temperature Pulse Rate 72 Respiratory Rate Blood Pressure Pulse Oximetry Oxygen Delivery Room Air Oxygen Flow Rate Fraction of Inspired Oxygen Intake/Output Intake/Output: Intake & Output 01/28/25 01/29/25 01/30/25 01/31/25 23:59 23:59 23:59 23:59 Intake Total 240 820 740 Balance 240 820 740 Meds/Results Medications: Active Medications Generic Name Dose Route Start Last Admin Trade Name Freq PRN Reason Stop Dose Admin Acetaminophen 650 mg 01/29/25 20:41 Acetaminophen 325 Mg Tablet PO Q6H PRN Mild Pain (1-3) or Fever Hydrocodone Bitart/Acetaminophen 1 tab 01/29/25 20:41 Hydrocodone/Acetaminophen (*Crx) 5-325 Mg Tablet PO Q6H PRN Pain Rated 4-6 Alendronate Sodium 70 mg 01/31/25 06:30 01/31/25 06:05 Alendronate Sodium 70 Mg Tablet PO 70 mg We@0630 [facility] Administration Atorvastatin Calcium 80 mg 01/29/25 21:00 01/30/25 21:20 Atorvastatin 40 Mg Tablet PO 80 mg HS [facility] Administration Calcium Carbonate 500 mg 01/30/25 09:00 01/31/25 08:27 Calcium/Vitamin D 500 Mg/5 Mcg (200 I.U.) Tablet PO 500 mg BID [facility] Administration Carvedilol 12.5 mg 01/30/25 09:00 01/31/25 08:25 Carvedilol 12.5 Mg Tablet PO 12.5 mg DAILY [facility] Administration Enoxaparin Sodium 40 mg 01/30/25 09:00 01/31/25 08:27 Enoxaparin 40 Mg/0.4 Ml Syringe SUB-Q 40 mg DAILY [facility] Administration Furosemide 20 mg 01/30/25 09:00 01/31/25 08:27 Furosemide 20 Mg Tablet PO 20 mg DAILY [facility] Administration Morphine Sulfate 2 mg 01/29/25 20:41 Morphine Sulfate (*Crx) 2 Mg/Ml Inj IV PUSH Q4H PRN Pain Rated 7-10 Ondansetron HCl 4 mg 01/29/25 20:41 Ondansetron Hcl Odt 4 Mg Tablet PO Q6H PRN Nausea And Vomiting Pantoprazole Sodium 40 mg 01/30/25 09:00 01/31/25 08:27 Pantoprazole 40 Mg Tablet PO 40 mg QAM [facility] Administration Polyethylene Glycol 17 gm 01/29/25 20:41 Polyethylene Glycol 3350 17 Gm Powd.Pack PO QAM PRN Constipation Senna/Docusate Sodium 2 tab 01/30/25 09:00 01/31/25 08:26 Senna/Docusate Sodium Tablet PO 2 tab BID [facility] Administration Valsartan 320 mg 01/30/25 09:00 01/31/25 08:25 Valsartan 160 Mg Tablet PO 320 mg DAILY [facility] Administration Radiology Results: ITS Impressions Lumbar Spine CT 01/29/25 11:47 Impression: 1. No acute abnormality of the lumbar spine detected by CT. Venous Doppler Study 01/29/25 12:00 Impression: No evidence of deep venous thrombosis Knee X-Ray 01/29/25 12:07 IMPRESSION: 1. No acute bony abnormality. 2. Mild joint space narrowing in the medial compartment and patellofemoral joint. Hip/Pelvis X-Ray 01/29/25 12:09 IMPRESSION: 1. No acute fracture identified. 2. Moderate degenerative change in the hips. If symptoms persist or worsen, consider a short-term follow-up study or additional imaging for further assessment Labs Labs: Laboratory Results - last 24 hr 01/31/25 05:31 WBC 5.6 RBC 3.52 L Hgb 10.7 L Hct 35.3 L MCV 100.3 H MCH 30.4 MCHC 30.3 L RDW 13.5 Plt Count 126 L MPV 9.0 Immature Gran % (Auto) 0.2 Neut % (Auto) 64.1 Lymph % (Auto) 21.0 [place] % (Auto) 9.4 H Eos % (Auto) 4.9 H Baso % (Auto) 0.4 Lymph # (Auto) 1.17 [place] # (Auto) 0.5 Eos # (Auto) 0.3 Baso # (Auto) 0.0 Abs Immat Gran (auto) 0.01 Absolute Neuts (auto) 3.6 Absolute Nucleated RBC 0.000 Nucleated RBC % 0.0 Sodium 138 Potassium 4.2 Chloride 100 Carbon Dioxide 34 H Anion Gap 4 BUN 21 H Creatinine 0.93 Estim Creat Clear Calc 39 Estimated GFR 58 L Glucose 95 Calcium 8.8 Total Bilirubin 0.5 AST 22 ALT 14 Alkaline Phosphatase 65 Total Protein 6.2 L Albumin 3.7 Quality VTE Prophylaxis VTE prophylaxis: pharmacologic ordered
[2025-01-31] MEDS: ATORVASTATIN 40 MG TABLET 80 MG PO (21:19)
[2025-02-01] VITALS: BP 114/49; PULSE 64; RESP 20; TEMP 36.1; O2SAT 100
[2025-02-01 04:00] VITALS: BP 124/64; PULSE 60; RESP 16; TEMP 36.1; O2SAT 100
[2025-02-01 06:07] LABS: Hematocrit 33.8 % (37.0-47.0); Hemoglobin 10.1 g/dL (12.0-15.0); Immature Granulocyte Percent A 0.2 % (0-0.5); Lymphocytes Absolute Auto 1.15 K/mm3 (0.9-3.2); Mean Corpuscular HGB Conc 29.9 g/dl (32-36); Mean Corpuscular Hemoglobin 30.2 pg (26-34); Mean Corpuscular Volume 101.2 fl (80-100); Nucleated Red Blood Cells Absolute Auto 0.000 K/mm3 (0.0-0.012); Nucleated Red Blood Cells Perc 0.0 % (0.0-0.2); Platelet Count Result 114 k/mm3 (150-375); Red Blood Count 3.34 M/mm3 (4.2-5.4); White Blood Count 5.0 K/mm3 (4.5-10.0)
[2025-02-01 06:29] LABS: Alanine Aminotransferase 13 U/L (6-35); Albumin Level 3.5 g/dL (3.5-5.1); Alkaline Phosphatase 62 U/L (38-126); Anion Gap 1 mmol/L (4-12); Aspartate Amino Transferase 21 U/L (14-36); Bilirubin,Total 0.5 mg/dL (0.2-1.3); Blood Urea Nitrogen 21 mg/dL (7-17); Calcium 8.7 mg/dL (8.4-10.2); Carbon Dioxide 37 mmol/L (22-30); Chloride 99 mmol/L (98-107); Estimated CRCL calculation 43 ml/min; Estimated Glomerular Filt Rate > 60; Glucose 97 mg/dL (65-110); Potassium 3.9 mmol/L (3.4-5.0); Sodium 137 mmol/L (137-145); Total Protein 5.8 g/dL (6.3-8.2)
[2025-02-01 06:40] LABS: Hypochromasia Occasional; Schistocytes None Seen
[2025-02-01 08:00] VITALS: BP 110/52; PULSE 68; RESP 18; TEMP 36.2; O2SAT 100
[2025-02-01] MEDS: CALCIUM/VITAMIN D 500 MG/5 MCG (200 I.U.) TABLET PO (09:28)
[2025-02-01] MEDS: PANTOPRAZOLE 40 MG TABLET PO (09:28)
[2025-02-01] MEDS: ENOXAPARIN 40 MG/0.4 ML SYRINGE SUB-Q (09:28)
[2025-02-01] MEDS: VALSARTAN 160 MG TABLET 320 MG PO (10:21)
[2025-02-01 10:22] VITALS: PULSE 68
--- NOTE | 2025-02-01 10:27 | P.DS_ITS ---
DS: Admitting Diagnosis Discharge Date 02/01 Admitting Diagnosis lt lower extremity pain DS: Discharge Diagnosis Discharge Diagnosis (1) Left leg pain: Code(s): M79.605 - Pain in left leg Status: Acute (2) Bimalleolar fracture of right ankle: Qualifiers: Encounter type: subsequent encounter Fracture type: closed Fracture healing: with routine healing Qualified Code(s): S82.841D - Displaced bimalleolar fracture of right lower leg, subsequent encounter for closed fracture with routine healing Code(s): S82.841A - Displaced bimalleolar fracture of right lower leg, initial encounter for closed fracture Status: Acute (3) Chronic respiratory failure with hypoxia, on home oxygen therapy: Code(s): J96.11 - Chronic respiratory failure with hypoxia; Z99.81 - Dependence on supplemental oxygen Status: Chronic (4) Chronic obstructive pulmonary disease: Qualifiers: COPD type: unspecified COPD Qualified Code(s): J44.9 - Chronic obstructive pulmonary disease, unspecified Code(s): J44.9 - Chronic obstructive pulmonary disease, unspecified Status: Chronic (5) Hypertension: Qualifiers: Hypertension type: primary hypertension Qualified Code(s): I10 - Essential (primary) hypertension Code(s): I10 - Essential (primary) hypertension Status: Chronic DS: Summary Hospital Course Hospital Course: 79 y/o F with PMH of chronic respiratory failure with hypoxia on home O2, COPD, pulmonary hypertension, combined systolic/diastolic CHF, DVT (2020, LLE), hypertension, anxiety, cardiomyopathy, and bladder cancer s/p TURBT admitted for eval for LLE pain. Several issues were addressed: # left leg pain Lumbar CT: No acute abnormality of the lumbar spine detected by CT. * US LLE: No evidence of DVT * Knee XR, L: No acute bony abnormality. Mild joint space narrowing of the medial compartment and patellofemoral joint. * Hip/pelvic XR: No acute fracture. Moderate degenerative changes in the hips. * care coordination consulted for possible rehab * analgesics prn * Suspicion LLE pain secondary to compensatory gait secondary to boot in place for recent bimalleolar fracture * PT/OT eval - recommends SNF * Working with CC regarding placement- per daughter, pt has home health and prefers to go home to continue therapy at home # Bimalleolar fracture of right ankle: * Hx of GLF resulting in a bimalleolar fracture on 11/11 * continue LLE boot # Chronic respiratory failure with hypoxia, on home oxygen therapy: * chronic respiratory failure with hypoxia on home O2. Requires 3L at baseline, no increased need at present. #Hypertension: * chronic, average 136/44. Of note this morning was a bit lower but h/o CHF so need to ensure Cardiology is aware if BP continues to stay low at home * continue home medications: Valsartan, Coreg * advised to keep log of BP and f.u with cardiology for further titration Status at Discharge Functional status at discharge: uses cane/walker Overall status at discharge: patient is progressing back to baseline Time Spent with Patient Time attestation: Total time spent providing and/or coordinating discharge services: Time spent: Greater than 30 minutes Exam Const: General: comfortable and no acute distress HENMT: Face/Nose/Sinus: Normal nares present Mouth: Yes moist mucous membranes Eyes: General: appearance normal, both eyes and all related structures Sclera: sclerae normal Pupils: Equal, round and reactive pupils present EOM: EOMs intact bilaterally Resp: Effort & Inspection: normal respiratory effort Auscultation: clear to auscultation bilaterally Other: Nasal cannula place, tolerating well Cardio: Rate: regular rate Rhythm: regular rhythm Skin: General skin exam: normal color and no rashes or lesions noted Wounds: no wounds Neuro: Cranial nerves: Yes Equal, round and reactive pupils present Speech: normal speech Sensory Exam: normal sensation Extrem: Other: No tenderness to the knee or along the left lower extremity. Boot to the right lower extremity. Psych: Mental Status: mental status grossly normal Affect: normal affect Other: Fair insight and judgment. Disagreeable. DS: Data Data Completed and Pending Completed studies during hospitalization: hip/pelvis xray, knee xray, venous doppler, lumbar spine ct Labs on day of discharge: Labs from last 24 hours 02/01/25 05:25 WBC 5.0 RBC 3.34 L Hgb 10.1 L Hct 33.8 L MCV 101.2 H MCH 30.2 MCHC 29.9 L RDW 13.4 Plt Count 114 L MPV 9.6 Immature Gran % (Auto) 0.2 Neut % (Auto) 60.1 Lymph % (Auto) 22.8 [place] % (Auto) 11.1 H Eos % (Auto) 5.4 H Baso % (Auto) 0.4 Lymph # (Auto) 1.15 [place] # (Auto) 0.6 Eos # (Auto) 0.3 Baso # (Auto) 0.0 Abs Immat Gran (auto) 0.01 Absolute Neuts (auto) 3.0 Absolute Nucleated RBC 0.000 Band Neutrophils % Not Reportable Nucleated RBC % 0.0 Platelet Estimate Decreased Hypochromasia Occasional Schistocytes None seen Sodium 137 Potassium 3.9 Chloride 99 Carbon Dioxide 37 H Anion Gap 1 L BUN 21 H Creatinine 0.83 Estim Creat Clear Calc 43 Estimated GFR > 60 Glucose 97 Calcium 8.7 Total Bilirubin 0.5 AST 21 ALT 13 Alkaline Phosphatase 62 Total Protein 5.8 L Albumin 3.5 Preliminary micro results at discharge 01/29/25 23:23 - Preliminary Urine Clean Catch Gram negative bacilli isolated Discharge Plan Discharge Attending physician on discharge: Rebecca King Consulting providers: Benito Eisenberg Discharging Clinician: Annmarie Roth Patient Disposition: Home with Home Health Service Activity: october shower Diet: heart healthy Discharge Instructions: You were admitted with left lower leg pain. No evidence of DVT. Please, continue wearing left lower extremities boot #Hypertension: * chronic, average 136/44. Of note this morning was a bit lower but h/o CHF so need to ensure Cardiology is aware if BP continues to stay low at home * continue home medications: Valsartan, Coreg * as we discussed, please keep log of BP and f/u with cardiology for further titration Patient Instructions: Antibiotic Form Patient Language: Grenadian Stand Alone Forms: General Discharge Information Follow-up/Referrals: Navneet,EDIE Rosas [Primary Care Provider, Unknown] - 2 Weeks Discharge Medications: New hydrocodone-acetaminophen 5-325 mg Tablet 1 tablet PO Q6H PRN (Reason: Pain Rated 4-6) Qty: 18 0RF Continued carvedilol 6.25 mg tablet 12.5 mg PO DAILY atorvastatin 40 mg tablet 80 mg PO HS alendronate 70 mg tablet 70 mg PO WEEKLY Rx Instructions: TAKES ON WEDNESDAY omeprazole 20 mg capsule,delayed release(DR/EC) 20 mg PO DAILY calcium carbonate-vitamin D3 600 mg-10 mcg (400 unit) tablet 1 tablet PO BID valsartan 320 mg tablet 320 mg PO DAILY Qty: 30 0RF furosemide 20 mg Tablet 20 mg PO DAILY 30 Days Qty: 30 0RF sennosides-docusate sodium [Senokot-S] 8.6-50 mg Tablet 2 tab-cap PO BID Qty: 28 0RF Date of admission: 01/29/25 16:30 Primary Care Provider: Navneet,Cristiane Cruz Admitting Provider: Chuck Olivarez Attending physician on admission: Chuck Olivarez Condition: Stable Quality VTE Prophylaxis VTE prophylaxis: pharmacologic ordered Hospitalist MIPS Heart Failure (Exclusion) Patient has history of Heart Transplant or Left Ventricular Assistive Device?: No IF YES, STOP HERE Heart Failure (Qualifier) Patient has current or prior documentation of LVEF less than or equal to 40%, or mod/servere depressed LVSF?: No IF NO, STOP HERE
== END 2025-02-01 12:15 | disposition home health service (06) ==
LOC: ANHED 10:44 → ANH3MEDSUR 01-30 00:15
PROVIDERS: Physician Assistant; Student in an Organized Health Care Education/Training Program; Admitting Provider General Practice; Emergency Provider Physician Assistant; PCP Nurse Practitioner; Visit Provider Family Medicine
DX: M79.605 Pain in left leg (principal); S82.841D Displaced bimalleolar fracture of right lower leg, subsequent encounter for closed fracture with routine healing; M54.42 Lumbago with sciatica, left side; R82.90 Unspecified abnormal findings in urine; J96.11 Chronic respiratory failure with hypoxia; Z99.81 Dependence on supplemental oxygen; J44.9 Chronic obstructive pulmonary disease, unspecified; I11.0 Hypertensive heart disease with heart failure; I50.42 Chronic combined systolic (congestive) and diastolic (congestive) heart failure; Z86.718 Personal history of other venous thrombosis and embolism; I42.9 Cardiomyopathy, unspecified; F41.9 Anxiety disorder, unspecified; Z85.51 Personal history of malignant neoplasm of bladder; Z87.891 Personal history of nicotine dependence; Z80.1 Family history of malignant neoplasm of trachea, bronchus and lung; Z80.6 Family history of leukemia
CPT/HCPCS: 36415; 72131; 73502; 73564; 80048; 80053; 81001; 85025; 85610; 85730; 87086; 93971; 96372; 96374; 97110; 97162; 97165; 97530; 97535; 99285; A9270; G0378; J1650